=== PATIENT | female | born 1945 | race Caucasian/White ===

== ENCOUNTER 2019-10-30 16:39 | Outpatient (RCR) | payer OTHER, SELFPAY ==
[2019-10-04 16:08] LABS: INR 1.7; Prothrombin Time 19.3 Seconds (11.1-14.7)
[2019-10-13 11:29] LABS: INR 4.1; Prothrombin Time 39.1 Seconds (11.1-14.7)
[2019-10-18 13:49] LABS: INR 2.2; Prothrombin Time 24.3 Seconds (11.1-14.7)
[2019-10-30 17:04] LABS: INR 1.8; Prothrombin Time 20.5 Seconds (11.1-14.7)
== END 2020-01-02 23:59 | disposition home or self-care (01) ==
LOC: ANHLAB 16:39
PROVIDERS: PCP Family Medicine; Visit Provider Internal Medicine Cardiovascular Disease
DX: Z48.812 Encounter for surgical aftercare following surgery on the circulatory system (principal); I35.1 Nonrheumatic aortic (valve) insufficiency
CPT/HCPCS: 36415; 85610

== ENCOUNTER 2019-12-20 15:00 | Outpatient (RCR) | payer OTHER, SELFPAY ==
[2019-09-22 11:28] VITALS: BP 120/70; PULSE 85; RESP 16; O2SAT 93
[2019-09-22 11:30] VITALS: PULSE 85
--- NOTE | 2019-09-25 09:07 | PCCPR ---
Absent due to illness Kathy called states she is not feeling well at all. She has been having chest discomfort mostly when she takes a deep breath. Encouraged her to call her PCP or her Customer Service Correspondence Clerk to get an apt to be seen. She also mentioned she feels shakey however denies her heart feeling irregular. Asked she keep us informed.
--- NOTE | 2019-09-27 07:17 | PCCPR ---
Kathy called and left message stating that she was in the hospital at [place], did not state reason why, will be out this week.
--- NOTE | 2019-09-27 08:43 | PC.NURSE ---
Kathy called in from the ICU and states she was hospitalized for low potassium and fluid overload. They are going to send her home today with diuretics and potassium. She states she was having chest pain but the doctor told her it was most likely muscular after doing testing. Informed her that we would need a release for her to return from Cardiology before she could come back.
--- NOTE | 2019-10-09 10:55 | PCCPR ---
Absent Called off has out of town company.
--- NOTE | 2019-11-01 18:47 | PCCPR ---
Absent-called in stating she had hurt her back putting up decorations.
--- NOTE | 2019-11-06 10:26 | PCCPR ---
Absent today due to inclement weather.
--- NOTE | 2019-11-30 14:36 | PCCPR ---
Absent Zhou called states she is not feeling well and has a back pain.
== END 2019-12-20 23:59 | disposition home or self-care (01) ==
LOC: ANHCPREHAB 15:00
PROVIDERS: PCP Family Medicine; Visit Provider Nurse Practitioner Adult Health
DX: Z95.2 Presence of prosthetic heart valve (principal)
CPT/HCPCS: 93798

== ENCOUNTER 2020-03-12 13:58 | Outpatient (CLI) | payer OTHER, SELFPAY ==
--- NOTE | ~2020-03-12 | MM_ITS ---
EXAMINATION: MM screening juli BI w devon HISTORY: Screening mammogram TECHNIQUE: Craniocaudal and mediolateral oblique 3-D tomosynthesis images were obtained and synthetic 2-D images were generated. CAD analysis was submitted and interpreted. COMPARISON: 12/29/2018, 06/18/2017, 06/02/2016 bilateral digital screening mammogram examinations BREAST PARENCHYMAL COMPOSITION: There are scattered areas of fibroglandular density. FINDINGS: There is no evidence of suspicious mass, calcification, or architectural distortion to sugg est malignancy in either breast. There has been no suspicious interval change. IMPRESSION: 1. No mammographic evidence of malignancy. 2. Recommend routine screening mammography in one year. BI-RADS Category 1: Negative Reviewed, dictated and finalized at location A.
== END 2020-03-12 13:59 | disposition home or self-care (01) ==
LOC: ANHIMG 14:02
PROVIDERS: PCP Family Medicine; Visit Provider Family Medicine
DX: Z12.31 Encounter for screening mammogram for malignant neoplasm of breast (principal)
CPT/HCPCS: 77063; 77067

== ENCOUNTER 2020-04-01 12:59 | Outpatient (CLI) | payer OTHER, SELFPAY ==
--- NOTE | ~2020-04-01 | XR_ITS ---
EXAMINATION: XR hip LT min 2V DATE: 04/01/2020 13:33 INDICATION: Left hip bursitis. TECHNIQUE: 2 views of left hip were obtained. COMPARISON: Left hip radiographs 01/11/2020, CT abdomen and pelvis 07/19/2012 FINDINGS: Bone alignment is normal. No fracture. There is mild left hip osteoarthritis. Suture materi al overlies the abdomen and pelvis. IMPRESSION: 1. Mild left hip osteoarthritis. Reviewed, dictated and finalized at location A.
== END 2020-04-01 13:00 | disposition home or self-care (01) ==
LOC: ANHIMG 13:08
PROVIDERS: PCP Family Medicine; Visit Provider Chiropractor Rehabilitation
DX: M71.552 Other bursitis, not elsewhere classified, left hip (principal); M16.12 Unilateral primary osteoarthritis, left hip
CPT/HCPCS: 73502

== ENCOUNTER 2020-04-27 09:33 | Outpatient (CLI) | payer OTHER, SELFPAY ==
--- NOTE | ~2020-04-27 | MR_ITS ---
EXAMINATION: MR hip LT wo con DATE: 04/27/2020 10:48 INDICATION: Severe left hip pain. Trochanteric bursitis. TECHNIQUE: Magnetic resonance imaging (MRI) of the left hip was performed without intravenous contra st. Sequences included full-field axial PD-weighted FS FSE and T1-weighted FSE, coronal of the pelvis with PD-weighted FS FSE, small field of view of the left hip with axial PD-weighted FS FSE, sagitta l PD-weighted FS FSE and coronal PD weighted FS FSE. Additional radial T1-weighted FGR oriented ortho gonal to the acetabular rim were obtained for evaluation of the labrum. COMPARISON: Left hip radiographs dated 04/01/2020 FINDINGS: Bones/labrum/cartilage: Alignment is normal. No fracture, avascular necrosis or pathologic marrow replacing process. Degener ative tearing at the anterior and posterior superior glenoid labrum. Mild osteoarthritis at the right hip with posterior predominant nonuniform joint space narrowing. Severe lumbar spondylosis. Fluid: Trochanteric bursitis with fluid in the left trochanteric bursa measuring 5.0 cm craniocaudally and 3 .2 x 1.0 cm in maximal transaxial dimensions. Physiologic amount of fluid in the bilateral hip joints . Minimal fluid at the right trochanteric bursa. Soft tissues: No asymmetric muscular atrophy at the pelvis or proximal thighs. Moderate tendinopathy without discre te tear at the distal aspect of the anterior portion of the left least medius tendon with mild tendin opathy of the posterior portion of the tendon. Mild muscular edema along the myotendinous junction of the distal left gluteus medius which could be reactive or related to low-grade strain. Mild tendinop athy without discrete tear at the contralateral right gluteus medius tendon. Bilateral gluteus minimu s and ian tendons are normal. The iliopsoas and proximal hamstring tendons are normal. Separabili ty artifact along an infraumbilical midline surgical scar. The uterus is not identified and has likel y been surgically resected. Limited evaluation of visceral organs of the pelvis is unremarkable. No pathologically enlarged pelvic/inguinal lymphadenopathy. IMPRESSION: 1. Moderate tendinopathy without discrete tear of the left gluteus medius medius tendon and likely lo w-grade strain at the myotendinous junction. 2. Bilateral trochanteric bursitis, moderate severity in the left and minimal on the right. 3. Mild left hip osteoarthritis with degeneration at the anterior and posterior superior left acetabu lar labrum. Reviewed, dictated and finalized at location A. IMPRESSION: 1. Moderate tendinopathy without discrete tear of the left gluteus medius mediu s tendon and likely low-grade strain at the myotendinous junction. 2. Bilateral trochanteric bursitis, moderate severity in the left and minimal o n the right. 3. Mild left hip osteoarthritis with degeneration at the anterior and posterior superior left acetabular labrum.
== END 2020-04-27 09:34 | disposition home or self-care (01) ==
PROVIDERS: PCP Family Medicine; Visit Provider Orthopaedic Surgery
DX: M70.61 Trochanteric bursitis, right hip (principal); M70.62 Trochanteric bursitis, left hip
CPT/HCPCS: 73721

== ENCOUNTER → 2020-07-23 13:30 | Outpatient (CLI) | payer OTHER, SELFPAY ==
--- NOTE | ~2020-07-23 | DEXA_ITS ---
Bone Density Report Name: Kathy Wright Age: 75 Sex: Female Ethnicity: White Date of : 1945 Indication: osteopenia; parental hip fracture; height loss; hysterectomy; postmenopausal Referring Provider: Jenna Stuart Study: Bone densitometry was performed. Exam Date: July 23, 2020 Accession number: [id number] Bone Density: Region BMD T-score Z-score Classification AP Spine (L1-L4) 1.044 0.0 2.5 Normal Femoral Neck (Left) 0.612 -2.1 0.0 Osteopenia Total Hip (Left) 0.747 -1.6 0.3 Osteopenia Femoral Neck (Right) 0.596 -2.3 -0.1 Osteopenia Total Hip (Right) 0.809 -1.1 0.8 Osteopenia Total Hip Mean 0.778 -1.4 0.6 Osteopenia World Health Organization criteria for BMD impression classify patients as: Normal (T-score at or above -1.0), Osteopenia (T-score between -1.0 and -2.5), or Osteoporosis (T-score at or below -2.5). 10-year Fracture Risk(1): Major Osteoporotic Fracture 28% Hip Fracture 18% Reported Risk Factors: [place] (), Neck BMD=0.596, BMI=28.5, parental fracture (1) FRAX(R) Version 3.08. Fracture probability calculated for an untreated patient. Fracture probability may be lower if the patient has received treatment. Previous Exams: Region Exam Age BMD T-score BMD Change BMD Change Date g/cm2 vs Baseline vs Previous AP Spine(L1-L4) 07/23/2020 75 1.044 0.0 0.032* 0.024* 11/30/2014 69 1.020 -0.2 0.007 -0.012 07/31/2009 64 1.032 -0.1 0.020 0.020 03/30/2007 62 1.012 -0.3 Total Hip(Left) 07/23/2020 75 0.747 -1.6 -0.052* -0.031* 11/30/2014 69 0.778 -1.3 -0.020 -0.032* 07/31/2009 64 0.810 -1.1 0.011 0.011 03/30/2007 62 0.798 -1.2 Total Hip(Right) 07/23/2020 75 0.809 -1.1 -0.001 0.012 11/30/2014 69 0.796 -1.2 -0.013 -0.105* 07/31/2009 64 0.901 -0.3 0.092* 0.092* 03/30/2007 62 0.809 -1.1 *Denotes significance at 95% confidence level, LSC for AP Spine = 0.022 g/cm2, LSC for Total Hip = 0.027 g/cm2 Clinical Information Provided by Patient: Parent has had a hip fracture Has used the following medications: Vitamin D, Calcium Has the following medical conditions: Hysterectomy Patient maximum height was 65 Menopause Age: 39 No regular weight bearing exercise Drinks caffeinated beverages Onset of menses at age 10 Number of children 3
== END ==
PROVIDERS: PCP Family Medicine; Visit Provider Physician Assistant
DX: N95.9 Unspecified menopausal and perimenopausal disorder (principal); M85.852 Other specified disorders of bone density and structure, left thigh; M85.851 Other specified disorders of bone density and structure, right thigh
CPT/HCPCS: 77080

== ENCOUNTER 2020-07-30 13:46 | Outpatient (CLI) | payer OTHER, SELFPAY ==
--- NOTE | ~2020-07-30 | MMUS_ITS ---
EXAMINATION: MM diagnostic juli LT w devon, US breast LT complete HISTORY: Left lateral breast soreness with pain. Breast firmness. TECHNIQUE: Additional 3-D tomosynthesis images of the left breast were performed and synthetic 2-D im ages were generated. CAD analysis was submitted and interpreted. High resolution left breast ultrasou nd was performed. COMPARISON: Comparison to multiple prior studies sequentially, with oldest reviewed study dated 06/02. BREAST PARENCHYMAL COMPOSITION: Breast composed of scattered areas of fibroglandular density. FINDINGS: MAMMOGRAPHIC FINDINGS: There are no suspicious masses, calcifications or architectural distortion in the left breast to sugg est malignancy. ULTRASOUND: Left breast ultrasound: At 1:00 in the area of palpable concern there is an 8 x 8 x 7 mm complicated cyst with internal septa tions. IMPRESSION: 1. No evidence for malignancy in the left breast. Benign findings. 2. Routine yearly screening mammogram and regular clinical breast examination are recommended. BI-RADS Category 2: Benign finding(s). Reviewed, dictated and finalized at location A. IMPRESSION: 1. No evidence for malignancy in the left breast. Benign findings. 2. Routine yearly screening mammogram and regular clinical breast examination a re recommended. BI-RADS Category 2: Benign finding(s).
== END 2020-07-30 13:47 | disposition home or self-care (01) ==
PROVIDERS: PCP Family Medicine; Visit Provider Physician Assistant
DX: N64.4 Mastodynia (principal); N63.20 Unspecified lump in the left breast, unspecified quadrant; R92.8 Other abnormal and inconclusive findings on diagnostic imaging of breast
CPT/HCPCS: 76641; 77061; 77065; G0279

== ENCOUNTER 2020-08-08 10:52 | Outpatient (CLI) | payer OTHER, SELFPAY ==
--- NOTE | ~2020-08-08 | MR_ITS ---
EXAMINATION: MR lumbar spine wo con DATE: 08/08/2020 12:00 INDICATION: Spinal stenosis. Lumbar neurogenic claudication. TECHNIQUE: Magnetic resonance imaging (MRI) of the lumbar spine was performed without intravenous con trast. Sequences included sagittal T2-weighted FSE, sagittal T2-weighted FS FSE, sagittal T1-weighted FSE, and axial T2-weighted FSE. COMPARISON: 06/06/2019 FINDINGS: 10 degrees lumbar dextroscoliosis. 2 mm retrolisthesis L2 on L3 and L3 on L4. 3 mm anterolisthesis L5 on S1. Vertebral body heights are normal. T1 and T2 hyperintense hemangioma at L1. Normal marrow sig nal. Severe right-sided disc height loss at L4-L5 and severe left-sided disc height loss at L3-L4. Mo derate left-sided disc height loss at L2-L3. Mild disc height loss at L1-L2 and L5-S1. The conus medu llaris terminates at L2. There is normal signal in the caudal spinal cord. No significant change in a 9 mm T2 hyperintense cyst at the lower pole of the left kidney Paravertebral soft tissues are unrema rkable. The following disc levels are specifically discussed: T12-L1: The disc does not extend beyond the endplate margin. There is mild bilateral facet joint oste oarthritis. There is no neural foraminal stenosis. There is no central canal stenosis. L1-L2: Disc is bulging. There is hypertrophy of the ligamentum flavum. There is mild to moderate primitivo ateral facet joint osteoarthritis. There is mild bilateral neural foraminal stenosis. There is mild c entral canal stenosis. L2-L3: Disc is bulging with annular fissure. There is hypertrophy of the ligamentum flavum. There is moderate left and severe right facet joint osteoarthritis. There is mild to moderate right and modera te left neural foraminal stenosis. There is mild central canal stenosis with narrowing of the lateral recesses, left greater than right. L3-L4: Disc is bulging with annular fissure. There is mild hypertrophy of the ligamentum flavum. Ther e is moderate left and severe right facet joint osteoarthritis. There is moderate bilateral neural fo raminal stenosis. There is mild central canal stenosis with narrowing of the left and right lateral r ecesses. L4-L5: Disc is bulging. There is mild hypertrophy of the ligamentum flavum. There is moderate left an d severe right facet joint osteoarthritis. There is moderate left and moderate to severe right neural foraminal stenosis. There is mild central canal stenosis with narrowing of the lateral recesses, rig ht greater than left. L5-S1: Disc is bulging. There is severe bilateral, right greater than left facet joint osteoarthritis . There is mild bilateral neural foraminal stenosis. There is mild central canal stenosis with narrow ing of the left and right lateral recesses. IMPRESSION: 1. No significant interval change in mild lumbar dextroscoliosis with severe spondylosis. Reviewed, dictated and finalized at location A. IMPRESSION: 1. No significant interval change in mild lumbar dextroscoliosis with severe sp ondylosis.
== END 2020-08-08 10:53 | disposition home or self-care (01) ==
PROVIDERS: PCP Family Medicine; Visit Provider Orthopaedic Surgery
DX: M48.062 Spinal stenosis, lumbar region with neurogenic claudication (principal); M70.61 Trochanteric bursitis, right hip; M70.62 Trochanteric bursitis, left hip; M47.816 Spondylosis without myelopathy or radiculopathy, lumbar region
CPT/HCPCS: 72148

== ENCOUNTER 2021-04-14 15:35 | Outpatient (CLI) | payer OTHER, SELFPAY ==
--- NOTE | ~2021-04-14 | XR_ITS ---
[[id number] ] INDICATION: Bilateral rib pain after fall. Dyspnea with exertion. TECHNIQUE: Frontal projection of the upper ribs, frontal projection of the lower ribs, oblique projec tion of all the ribs, frontal inspiratory chest x-ray for interpretation. FINDINGS: There are no displaced rib fractures identified. There are no soft tissue abnormality see n. There is focal infiltrate of the right mid lung zone. No significant pleural effusion or pneumotho rax. Status post median sternotomy. There is a prosthetic heart valve. IMPRESSION: 1:No displaced rib fractures. 2:Focal infiltrate right midlung zone which may be pneumonia or parenchymal nodule. Recommend follow- up x-ray in 3-4 weeks to assess for resolution. Reviewed, dictated and finalized at location A. IMPRESSION: 1:No displaced rib fractures. 2:Focal infiltrate right midlung zone which may be pneumonia or parenchymal nod ule. Recommend follow-up x-ray in 3-4 weeks to assess for resolution.
== END 2021-04-14 15:36 | disposition home or self-care (01) ==
LOC: ANHIMG 15:37
PROVIDERS: PCP Family Medicine; Visit Provider Internal Medicine Cardiovascular Disease
DX: R06.00 Dyspnea, unspecified (principal); I50.32 Chronic diastolic (congestive) heart failure
CPT/HCPCS: 71111

== ENCOUNTER 2021-05-08 13:07 | Outpatient (CLI) | payer OTHER, SELFPAY ==
--- NOTE | ~2021-05-08 | XR_ITS ---
EXAMINATION: XR chest 2V 05/08/2021 13:24 INDICATION: Infiltrates. Chest pain. PROCEDURE: 2 view chest COMPARISON: 06/07/2019 FINDINGS: The lungs are clear. There are median sternotomy wires. There is a prosthetic heart valve. The cardiomediastinal silhouette is within normal limits. There are no pleural effusions. There is no pneumothorax suspected. IMPRESSION: 1: NO ACUTE CARDIOPULMONARY DISEASE. Reviewed, dictated and finalized at location A.
== END 2021-05-08 13:08 | disposition home or self-care (01) ==
LOC: ANHIMG 13:12
PROVIDERS: PCP Family Medicine; Visit Provider Internal Medicine Cardiovascular Disease
DX: R93.89 Abnormal findings on diagnostic imaging of other specified body structures (principal)
CPT/HCPCS: 71046

== ENCOUNTER 2021-06-27 10:05 | Outpatient (CLI) | payer OTHER, SELFPAY ==
--- NOTE | 2021-06-27 16:07 | WPDPFTINT ---
PFT Procedure Performed PFT Procedure Performed Plethysmography (Lung Vol) Diffusing Cap (DLCO) Flow Vol Loop Spirometry w/o Bronchodil PFT Interpretation This is a pulmonary function test with spirometry, plethysmography and diffusing capacity. The test was performed and results interpreted in accordance with the 2019 and 2005 ATS/ERS Task Force guidelines respectively using the Global Lung Function Initiative-2012 reference equations. Patient demonstrated good effort and cooperation. Reproducibility criteria were met. The quality of the spirometry maneuver was Grade B. Findings: Spirometry: The contour the inspiratory and expiratory flow tracing are normal. The FVC is 3.03 L, 114% predicted. The FEV1 is 2.22 L, 110% predicted. The FEV1: FVC ratio 73%. Plethysmography: The total lung capacity is 5.34 L, 105% predicted. The functional residual capacity is 2.06 L, 70% predicted. The residual volume is 2.02 L, 86% predicted. Diffusing capacity: The absolute diffusion capacity is 13.2, 67% predicted. The diffusing capacity corrected for alveolar volume is 3.37, 81% predicted. Impression: The spirometry is normal without evidence of an obstructive abnormality. The lung volumes are normal. The diffusing capacity is normal. There are no prior studies for comparison
== END 2021-06-27 10:06 | disposition home or self-care (01) ==
LOC: ANHPFT 10:07
PROVIDERS: PCP Family Medicine; Visit Provider Nurse Practitioner Adult Health
DX: R06.00 Dyspnea, unspecified (principal)
CPT/HCPCS: 94375; 94726; 94729

== ENCOUNTER → 2022-01-19 10:22 | Outpatient (CLI) | payer OTHER, SELFPAY ==
--- NOTE | ~2022-01-19 | CT_ITS ---
EXAMINATION: CT chest high resolution [facility] EXAM DATE: 01/19/2022 10:39 INDICATION: R06.02 - Shortness of breath. TECHNIQUE: Spiral CT of the chest without contrast. HRCT. Axial, coronal and sagittal images of the chest were reviewed. Coronal maximum intensity pixel images of chest reviewed. The dose-length prod uct (DLP) for this examination was 246.17 mGy-cm. The exposure was tailored according to patient siz e (auto mA exposure control), and iterative reconstruction (ASIR) was used as additional dose reducti on technique. Comparison is made to prior examination from 09/25/2019. FINDINGS: The lungs are clear. Mild bronchiectasis. No evidence of interstitial lung disease. There are no pleural or pericardial effusions. Tracheobronchial tree is patent. There is no mediastinal , hilar or axillary lymphadenopathy. There is no pneumothorax. Heart normal in size. There is m ild coronary arterial calcification, arterial sclerosis. Aortic valve replacement. Sternotomy wires. Upper abdomen is unremarkable. There is thoracic spondylosis without osteoblastic or osteolytic le sions identified. IMPRESSION: Mild bronchiectasis. Otherwise unremarkable exam. Reviewed, dictated and finalized at location B. 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
== END ==
PROVIDERS: PCP Family Medicine; Visit Provider Nurse Practitioner Gerontology
DX: E03.9 Hypothyroidism, unspecified (principal); I11.0 Hypertensive heart disease with heart failure; I50.32 Chronic diastolic (congestive) heart failure; R06.02 Shortness of breath; R91.1 Solitary pulmonary nodule; I12.9 Hypertensive chronic kidney disease with stage 1 through stage 4 chronic kidney disease, or unspecified chronic kidney disease; N18.31 Chronic kidney disease, stage 3a
CPT/HCPCS: 71250

== ENCOUNTER 2022-04-13 10:59 | Outpatient (CLI) | payer OTHER, SELFPAY ==
--- NOTE | ~2022-04-13 | CT_ITS ---
EXAMINATION:CT diagnostic chest wo con DATE: 04/13/2022 11:24 INDICATION: Dyspnea on exertion. TECHNIQUE: Computed tomography (CT) of the chest was performed without intravenous contrast. Automate d exposure control and iterative reconstruction technique were employed. The dose-length product (DLP ) was 129.03 mGy-cm. COMPARISON: Chest CT 01/19/2022 FINDINGS: There is mild scarring at the lung apices. There is mild bronchiectasis in the inferior roz gs. There is chronic peripheral septal thickening in the paramediastinal lower lobes. No honeycombing . There is a chronic cluster of tree-in-bud opacities in right middle lobe. No pleural effusion. The heart size is normal. There are changes of aortic valve replacement. No pericardial effusion. There i s mild thoracic spondylosis. IMPRESSION: 1. Mild chronic lung disease. Reviewed, dictated and finalized at location A.
== END 2022-04-13 11:00 | disposition home or self-care (01) ==
PROVIDERS: PCP Family Medicine; Visit Provider Nurse Practitioner Adult Health
DX: R06.02 Shortness of breath (principal); J98.4 Other disorders of lung
CPT/HCPCS: 71250

== ENCOUNTER 2022-07-10 10:16 | Outpatient (CLI) | payer OTHER, SELFPAY ==
[2022-07-13 20:11] LABS: NIL 0.01 IU/mL; Quantiferon TB Plus, 1T NEGATIVE (NEGATIVE); TB1-NIL 0.01 IU/mL; TB2-NIL 0.03 IU/mL
[2022-07-13 20:14] LABS: Immunoglobulin E 6 kU/L (<=114)
--- NOTE | 2022-07-15 12:22 | WPDSIXMINUTE ---
Six Minute Walk Procedure Procedure Performed Pulmonary Stress Test (6 min walk) Six Minute Walk Six Minute Walk: This is a 6 minute walk test. The test was performed and interpreted in accordance with the 2014 ERS/ATS task force guidelines. Findings: The patient's resting room air oxygen saturation measured by pulse oximetry was 99% and heart rate was 68 bpm. Patient ambulated for 244 meters and oxygen saturation remained 97 to 98%. Heart rate at the end of the study was 85 bpm. The patient did not qualify for supplemental oxygen at rest or with ambulation. There are no prior studies for comparison.
--- NOTE | 2022-07-15 12:23 | WPDPFTINT ---
PFT Procedure Performed PFT Procedure Performed Spirometry with Pre/Post Bronchodilator Plethysmography (Lung Vol) Diffusing Cap (DLCO) Flow Vol Loop PFT Interpretation This is a pulmonary function test with pre and post-bronchodilator spirometry, plethysmography and diffusing capacity. The test was performed and results interpreted in accordance with the 2019 and 2005 ATS/ERS Task Force guidelines respectively using the Global Lung Function Initiative-2012 reference equations. Patient demonstrated good effort and cooperation. Reproducibility criteria were met. The quality of the pre bronchodilator spirometry maneuver was Grade A and post bronchodilator spirometry maneuver was Grade B. Findings: Spirometry: The contour the inspiratory and expiratory flow tracing are normal. The pre bronchodilator FVC is 3.00 L, 115% predicted. The pre bronchodilator FEV1 is 2.39 L, 120% predicted. The pre bronchodilator FEV1: FVC ratio is 80%. The post bronchodilator FVC is 2.90 L, representing a 3% decrease. The post bronchodilator FEV1 is 2.38 L, representing no change. The post bronchodilator FEV1: FVC ratio was 82%. Plethysmography: The total lung capacity is 4.49 L, 88% predicted. The functional residual capacity is 2.12 L, 72% predicted. The residual volume is 1.33 L, 56% predicted. Diffusion capacity: Diffusing capacity unadjusted for hemoglobin and carboxyhemoglobin is 11.8, 60% predicted. The diffusing capacity adjusted for alveolar volume is 3.62, 87% predicted. In comparison to previous pulmonary function test on 06/27/2021 in which no bronchodilator was given the pre bronchodilator FVC is unchanged from 3.03 L to 3.00 L. The pre bronchodilator FEV1 is unchanged from 2.22 L to 2.39 L. The total lung capacity is decreased from 5.34 L to 4.49 L. The functional residual capacity is unchanged from 2.06 L to 2.12 L. The residual volume is decreased from 2.02 L to 1.33 L. The diffusing capacity unadjusted for hemoglobin and carboxyhemoglobin is unchanged from 13.2 to 11.8. The diffusing capacity adjusted for alveolar volume is unchanged from 3.37 to 3.62. Impression: The spirometry is normal without evidence of an obstructive abnormality. There is no significant improvement after inhaling a single dose of albuterol. The total lung capacity is normal with the decreased residual volume. This is a abnormal but nonspecific lung volume pattern. The diffusing capacity unadjusted for hemoglobin and carboxyhemoglobin is moderately decreased and normalizes when adjusted for alveolar volume. In comparison to previous pulmonary function testing on 06/27/2021 there has been a greater than anticipated time dependent decrease in total lung capacity and residual volume with no change in the FVC, FEV1, functional residual capacity and diffusing capacity. Clinical correlation is recommended.
== END 2022-07-10 10:17 | disposition home or self-care (01) ==
PROVIDERS: PCP Family Medicine; Visit Provider Internal Medicine Pulmonary Disease
DX: R06.00 Dyspnea, unspecified (principal); J40 Bronchitis, not specified as acute or chronic; Z72.0 Tobacco use
CPT/HCPCS: 36415; 82785; 86480; 94060; 94618; 94726; 94729

== ENCOUNTER 2022-10-05 10:04 | Emergency (ER) | payer OTHER, SELFPAY ==
--- NOTE | 2022-10-05 10:09 | ED.URI ---
HPI - URI/Sore Throat General Chief Complaint: Upper Respiratory Infection Stated Complaint: cold symptoms Time Seen by Provider: 10/05/22 10:08 Source: patient Mode of arrival: ambulatory Limitations: no limitations History of Present Illness HPI Narrative: Kathy is a 77-year-old female patient presenting to clinic today with complaints of cold symptoms x2 and half days. She reports she has headache, cough, sinus congestion, sinus pressure, runny nose, and sore throat. She feels as though it is going down into her chest. She denies any known fever but has had some chills. MD elicited complaint: sore throat and nasal congestion Related Data Home Medications Medication Instructions Recorded Confirmed Adult One Daily Multivitamin 1 caplet PO DAILY 09/22/19 10/05/22 aspirin 81 mg tablet,delayed 81 mg PO DAILY 09/22/19 10/05/22 release (Adult Low Dose Aspirin) calcium carbonate 600 mg-vitamin 1 cap PO DAILY 09/22/19 10/05/22 D3 5 mcg (200 unit) capsule (Calcium 600 + D(3)) acetaminophen 500 mg capsule 1,000 mg PO Q6H PRN Pain 09/25/19 10/05/22 coenzyme Q10 10 mg capsule 10 mg PO ONCE 09/25/19 10/05/22 metoprolol tartrate 50 mg tablet 100 mg PO Q12H 09/25/19 10/05/22 (Lopressor) omega-3 fatty acids 1,000 mg 1,000 mg PO DAILY 07/02/20 10/05/22 capsule (Fish Oil Concentrate) vitamins A,C,N-vtnu-oebbxe 2,148 2 tablet PO BID 05/15/21 10/05/22 mcg-113 mg-45 mg-17.4 mg tablet (PreserVision AREDS) zinc 50 mg tablet 50 mg PO DAILY 05/15/21 10/05/22 vitamin B complex (B 1 tablet DAILY 10/05/22 10/05/22 Complex-Vitamin B12 tablet) Allergies Allergy/AdvReac Type Severity Reaction Status Date / Time No Known Allergies Allergy Verified 10/05/22 10:15 Review of Systems Review of Systems: Pertinent positives per HPI. Patient denies any fever, rash, headache, visual changes, dizziness, shortness of breath, chest pain, palpitations, nausea, vomiting, diarrhea, constipation, abdominal pain, or any urinary issues. [facility] Past Medical History Medical History Abnormal colonoscopy 2020- tubular adenoma- repeat in 5 years Acute otitis media Acute sinusitis Anorexia Aortic valve regurgitation Status post aortic valve repair for aortic regurgitation August 16, 2019 at [facility]. Patient believe she may have had atrial fibrillation postoperatively for short period of time. States she is taking Coumadin through October ?to prevent clots.? Arthralgia Atrophic vaginitis Back muscle spasm Benign colon polyp Bilateral sacroiliitis Breast mass, left Breast pain, left Chest pain Chronic anticoagulation Chronic diastolic (congestive) heart failure CKD (chronic kidney disease) stage 3, GFR 30-59 ml/min Depression with anxiety Diarrhea Elevated troponin I level Fatigue GERD (gastroesophageal reflux disease) Hyperlipidemia Hypertension Hypertensive heart disease with chronic diastolic congestive heart failure Hypokalemia Hypothyroidism Hypothyroidism (acquired) Major depressive disorder, recurrent, moderate Mild valvular heart disease Mixed hyperlipidemia OAB (overactive bladder) Osteoarthritis Post-menopausal Pulmonary nodule Sacrococcygeal disorders, not elsewhere classified Screening for breast cancer SOB (shortness of breath) Spinal stenosis of lumbar region Tinnitus Trochanteric bursitis of both hips Vaginal irritation Vaginal itching Surgical History Surgical History H/O cardiac catheterization July 18, [address] Jimenes showed normal coronary arteries, normal left ventricular systolic function and ejection fraction, and severe aortic regurgitation. H/O: hysterectomy For endometriosis. History of colostomy Hx of aortic valve replacement August 16, [address] Mojica at [facility]. Hx of colonoscopy with polypectomy S/P cataract surgery S/P excision of lipom
[2022-10-05 10:21] VITALS: BP 161/79; PULSE 96; RESP 24; TEMP 37.2; O2SAT 97
== END 2022-10-05 10:16 | disposition home or self-care (01) ==
PROVIDERS: Emergency Provider Nurse Practitioner Family; PCP Family Medicine
DX: U07.1 COVID-19 (principal); K21.9 Gastro-esophageal reflux disease without esophagitis; E78.2 Mixed hyperlipidemia; I13.0 Hypertensive heart and chronic kidney disease with heart failure and stage 1 through stage 4 chronic kidney disease, or unspecified chronic kidney disease; N18.30 Chronic kidney disease, stage 3 unspecified; I50.32 Chronic diastolic (congestive) heart failure; E03.9 Hypothyroidism, unspecified; M19.90 Unspecified osteoarthritis, unspecified site; Z79.82 Long term (current) use of aspirin
CPT/HCPCS: 87426; 87804; 99213; C9803; G0463

== ENCOUNTER 2022-10-13 14:19 | Outpatient (CLI) | payer OTHER, SELFPAY ==
--- NOTE | ~2022-10-13 | XR_ITS ---
EXAMINATION: XR chest 2V Exam Date/Time: 10/13/2022 14:30 SAGGER PREPARER HISTORY: U07.1 - COVID-19, SOB, COUGH, FEVER Comparison: 05/08/2021. RESULT: Lines, tubes, and devices: Intact sternotomy wires. Cardiac valve replacement. Lungs and pleura: Clear. Cardiomediastinal silhouette: Stable. Other: No acute osseous or upper abdominal finding. IMPRESSION: No acute cardiopulmonary process. Reviewed, dictated and finalized at location K. ER PREPARER
== END 2022-10-13 14:20 | disposition home or self-care (01) ==
PROVIDERS: PCP Family Medicine; Visit Provider Nurse Practitioner Gerontology
DX: U07.1 COVID-19 (principal)
CPT/HCPCS: 71046

== ENCOUNTER → 2023-05-28 12:14 | Outpatient (CLI) | payer MEDICARE, SELFPAY ==
--- NOTE | ~2023-05-28 | MR_ITS ---
EXAMINATION: MR lumbar spine wo con DATE: 05/28/2023 13:37 INDICATION: Other spondylosis with myelopathy. Low back pain. TECHNIQUE: Magnetic resonance imaging (MRI) of the lumbar spine was performed without intravenous con trast. Sequences included sagittal T2-weighted FSE, sagittal T2-weighted FS FSE, sagittal T1-weighted FSE, and axial T2-weighted FSE. COMPARISON: Lumbar spine MRI 08/08/2020 FINDINGS: There is 9 degrees dextrocurvature of lumbar spine. There is 3 mm retrolisthesis of L3 on L 4 and 4 mm anterolisthesis of L5 on S1. Vertebral body heights are normal. There is mildly decreased disc height at L1-L2 and L2-L3 and severely decreased disc height at L3-L4 and L4-L5. The distal spin al cord signal intensity is normal. The conus medullaris is at L1-L2. The following disc levels are s pecifically discussed: L1-L2: The disc is bulging and has an annular fissure. There is severe bilateral facet joint osteoart hritis. There is mild bilateral neural foraminal stenosis. There is mild central canal stenosis. L2-L3: The disc is bulging. There is severe bilateral facet joint osteoarthritis. There is mild right and moderate left neural foraminal stenosis. There is mild central canal stenosis. L3-L4: The disc is bulging and has an annular fissure. There is severe bilateral facet joint osteoart hritis. There is moderate bilateral neural foraminal stenosis. There is mild central canal stenosis. L4-L5: The disc is bulging and has an annular fissure. There is severe right and moderate left facet joint osteoarthritis. There is moderate bilateral neural foraminal stenosis. There is mild central ca nal stenosis. There is moderate stenosis of right lateral recess. L5-S1: The disc is bulging. There is severe bilateral facet joint osteoarthritis. There is mild bilat eral neural foraminal stenosis. There is no central canal stenosis. IMPRESSION: 1. Severe lumbar spondylosis, stable from 08/08/2020. Reviewed, dictated and finalized at location A.
--- NOTE | ~2023-05-28 | MR_ITS ---
MRI of the cervical spine Clinical History: Spondylosis Technique: Axial T2-weighted and gradient images, and sagittal T1-weighted, T2-weighted, and STIR adalid ges were acquired. Findings: There is no fracture or subluxation of cervical spine. Vertebral bodies maintain normal hei ght and alignment. No bone marrow signal abnormality seen. At C2-C3, there is minimal disc bulge. No spinal canal stenosis, cord compression, or neural foramina l narrowing. At C3-C4, there is small disc osteophyte complex with minimal flattening the ventral cord. There is p robable minimal bilateral neural foraminal narrowing. At C4-C5, disc osteophyte complex results in mild to moderate canal stenosis and mild ventral cord co mpression. There is bilateral neural foraminal narrowing. At C5-C6, disc osteophyte complex results in mild to moderate canal stenosis and mild ventral cord co mpression. There is probable bilateral neural foraminal narrowing, right worse than left. At C6-C7, there is disc osteophyte complex with mild canal stenosis, no trenton cord compression. There is probable bilateral neural foraminal narrowing. No abnormal signal seen in the spinal cord. Paravertebral soft tissues are unremarkable. Impression: Moderate to advanced degenerative spondylosis, as above. There is mild to moderate canal stenosis and mild ventral cord compression at C4-C5 and C5-C6. There is mild ventral cord flattening at C3-C4. Th ere is multilevel neural foraminal narrowing. Reviewed, dictated and finalized at [facility]. Impression: Moderate to advanced degenerative spondylosis, as above. There is mild to moder ate canal stenosis and mild ventral cord compression at C4-C5 and C5-C6. There is mild ventral cord flattening at C3-C4. There is multilevel neural foraminal narrowing.
== END ==
PROVIDERS: PCP Family Medicine; Visit Provider Family Medicine
DX: M47.896 Other spondylosis, lumbar region (principal); M47.892 Other spondylosis, cervical region
CPT/HCPCS: 72141; 72148

== ENCOUNTER 2023-08-10 14:38 | Outpatient (CLI) | payer MEDICARE, SELFPAY ==
--- NOTE | ~2023-08-10 | MM_ITS ---
EXAMINATION: MM screening juli BI w devon HISTORY: Screening TECHNIQUE: Craniocaudal and mediolateral oblique 3-D tomosynthesis images were obtained and synthetic 2-D images were generated. CAD analysis was submitted and interpreted. COMPARISON: Comparison to multiple prior studies sequentially, with oldest reviewed study dated 12/07. BREAST PARENCHYMAL COMPOSITION: Breast composed of scattered areas of fibroglandular density FINDINGS: There is no evidence of suspicious mass, calcification, or architectural distortion to sugg est malignancy in either breast. There has been no suspicious interval change. IMPRESSION: 1. No mammographic evidence of malignancy. 2. Recommend routine screening mammography in one year. BI-RADS Category 1: Negative Reviewed, dictated and finalized at location A.
== END 2023-08-10 14:39 | disposition home or self-care (01) ==
PROVIDERS: PCP Family Medicine; Visit Provider Physician Assistant
DX: Z12.31 Encounter for screening mammogram for malignant neoplasm of breast (principal)
CPT/HCPCS: 77063; 77067

== ENCOUNTER 2023-12-08 15:47 | Outpatient (CLI) | payer MEDICARE, SELFPAY ==
--- NOTE | ~2023-12-08 | XR_ITS ---
XR shoulder LT min 2V DATE: 12/08/2023 16:09 INDICATION: Left shoulder pain and tingling after lifting 20 pounds TECHNIQUE: 4 views COMPARISON: None FINDINGS: Status post sternotomy. There is osteopenia. There is mild degenerative change at the acromioclavicular joint. No fracture or dislocation, periosteal reaction or bone destruction or abnormal soft tissue calcifica tion. There is multi-level degenerative disc disease and apophyseal and uncovertebral joint degenerative ch tej of the cervical spine. IMPRESSION: Osteopenia Mild degenerative change at acromioclavicular joint Cervical spondylosis Reviewed, dictated and finalized at location B. EOGRAPHER
== END 2023-12-08 15:48 | disposition home or self-care (01) ==
LOC: ANHIMG 15:54
PROVIDERS: PCP Family Medicine; Visit Provider Physician Assistant Surgical
DX: M85.812 Other specified disorders of bone density and structure, left shoulder (principal); M19.012 Primary osteoarthritis, left shoulder; M47.892 Other spondylosis, cervical region
CPT/HCPCS: 73030

== ENCOUNTER 2024-02-03 15:04 | Outpatient (CLI) | payer MEDICARE, SELFPAY ==
--- NOTE | ~2024-02-03 | DEXA_ITS ---
Bone Density Report Name: RAJ MERAZ Age: 78 Sex: Female Ethnicity: White Date of : 1945 Indication: postmenopausal; screening for osteoporosis; parental hip fracture; history of glucocorticoids; hysterectomy; Referring Provider: RADHA LECHUGA Study: Bone densitometry was performed. Exam Date: February 03, 2024 Accession number: [id number] Bone Density: Region BMD T-score Z-score Classification AP Spine(L1-L4) 0.981 -0.6 2.1 Normal Femoral Neck (Left) 0.702 -1.3 1.0 Osteopenia Total Hip (Left) 0.846 -0.8 1.3 Normal Femoral Neck (Right) 0.697 -1.4 0.9 Osteopenia Total Hip (Right) 0.908 -0.3 1.8 Normal Total Hip Mean 0.877 -0.6 1.6 Normal World Health Organization criteria for BMD impression classify patients as: Normal (T-score at or above -1.0), Osteopenia (T-score between -1.0 and -2.5), or Osteoporosis (T-score at or below -2.5). 10-year Fracture Risk(1): Major Osteoporotic Fracture 32% Hip Fracture 19% Reported Risk Factors: [place] (), Neck BMD=0.702, BMI=29.7, parental fracture, glucocorticoids (1) FRAX(R) Version 3.08. Fracture probability calculated for an untreated patient. Fracture probability may be lower if the patient has received treatment. Clinical Information Provided by Patient: Parent has had a hip fracture Has taken Glucocorticoids Has used the following medications: Vitamin D, Calcium Has the following medical conditions: Hysterectomy, COMPLETE @39 Patient maximum height was 64 No regular weight bearing exercise Does not regularly consume dairy products Onset of menses at age 11 Number of children 3 Impression: The patient has low bone mass, based on the Right Femoral Neck T-score. The patient has an estimated ten-year risk of hip fracture of 19% and an estimated ten-year risk of major fracture of 32%, based on the WHO FRAX algorithm. The patient has risk factors, including: parental hip fracture, history of glucocorticoid therapy. Discussion: BONE DENSITY IS LOW AT ONE OR MORE SKELETAL SITES. THE PATIENT'S BMD AND CLINICAL RISK FACTORS CONTRIBUTE TO THIS PATIENT'S HIGH RISK OF FRACTURE. This patient's lowest T-score is low at one or more skeletal sites. It meets the World Health Organization's (WHO) criteria for ?low bone mass? (T-score between -1.0 and -2.5). The patient's 10-year risk of hip fracture and 10 year risk of a major osteoporotic fracture as calculated by FRAX exceeds the threshold where pharmacological therapy is recommended by the National Osteoporosis Foundation (NOF). However, all treatment decisions require clinical judgment and consideration of individual patient factors, including patient preferences, comorbidities, previous drug use, risk factors not captured in the FRAX model (e.g., frailty, falls, vitamin D defi
== END 2024-02-03 15:05 | disposition home or self-care (01) ==
PROVIDERS: PCP Family Medicine; Visit Provider Physician Assistant
DX: Z78.0 Asymptomatic menopausal state (principal); M85.852 Other specified disorders of bone density and structure, left thigh; M85.851 Other specified disorders of bone density and structure, right thigh
CPT/HCPCS: 77080

== ENCOUNTER 2024-07-27 15:29 | Emergency (ER) | payer OTHER, SELFPAY ==
[2024-07-27 15:40] VITALS: BP 171/74; PULSE 72; RESP 20; TEMP 36.5; O2SAT 97
[2024-07-27 15:59] LABS: EDINFLUASCREEN Negative; EDINFLUBSCREEN Negative
[2024-07-27 15:59] LABS: EDSTREPNEGPOS1 Negative
--- NOTE | 2024-07-27 16:04 | ED.URI ---
HPI - URI/Sore Throat General Chief Complaint: Upper Respiratory Infection Stated Complaint: sore throat / headache Time Seen by Provider: 07/27/24 16:04 Source: patient and RN notes reviewed Mode of arrival: ambulatory Limitations: no limitations History of Present Illness HPI Narrative: 79-year-old female presented for complaint of headache, body aches, sinus pressure/congestion, cough, fever/chills. Onset 2 days. Also reports dry heaves. Denies sob, wheezing, vomiting or diarrhea. Took Sudafed and Tylenol Sinus. MD elicited complaint: cough Related Data Home Medications Medication Instructions Recorded Confirmed Adult One Daily Multivitamin 1 caplet PO DAILY 09/22/19 07/27/24 aspirin 81 mg tablet,delayed 81 mg PO DAILY 09/22/19 07/27/24 release (Adult Low Dose Aspirin) calcium carbonate 600 mg-vitamin 1 cap PO DAILY 09/22/19 07/27/24 D3 5 mcg (200 unit) capsule (Calcium 600 + D(3)) coenzyme Q10 10 mg capsule 10 mg PO ONCE 09/25/19 07/27/24 omega-3 fatty acids 1,000 mg 1,000 mg PO DAILY 07/02/20 07/27/24 capsule (Fish Oil Concentrate) vitamins A,C,Z-bray-ndplzb 2,148 2 tablet PO BID 05/15/21 07/27/24 mcg-113 mg-45 mg-17.4 mg tablet (PreserVision AREDS) zinc 50 mg tablet 50 mg PO DAILY 05/15/21 07/27/24 vitamin B complex (B 1 tablet DAILY 10/05/22 07/27/24 Complex-Vitamin B12 tablet) Allergies Allergy/AdvReac Type Severity Reaction Status Date / Time No Known Allergies Allergy Verified 07/27/24 15:54 Review of Systems Review of Systems: CONSTITUTIONAL: Endorses malaise, chills, sweats, fever EYES: Denies visual changes, redness, or discharge ENT: Reports rhinorrhea, congestion, sinus pain, denies otalgia, sore throat CARDIOVASCULAR: Denies chest pain, palpitations, edema RESPIRATORY: Reports cough, post nasal drainage. Denies dyspnea GASTROINTESTINAL: Denies abdominal pain, nausea, vomiting, diarrhea SKIN: Denies rash or itching MUSCULOSKELETAL: Endorses myalgia NEUROLOGIC: endorses headache PMFSH Past Medical History Medical History Abnormal colonoscopy 2020- tubular adenoma- repeat in 5 years Acute otitis media Acute sinusitis Anorexia Aortic valve regurgitation Status post aortic valve repair for aortic regurgitation August 16, 2019 at [facility]. Patient believe she may have had atrial fibrillation postoperatively for short period of time. States she is taking Coumadin through October ?to prevent clots.? Arthralgia Atrophic vaginitis Back muscle spasm Benign colon polyp Bilateral sacroiliitis Breast mass, left Breast pain, left Chest pain Chronic anticoagulation Chronic diastolic (congestive) heart failure CKD (chronic kidney disease) stage 3, GFR 30-59 ml/min Depression with anxiety Diarrhea Elevated troponin I level Fatigue GERD (gastroesophageal reflux disease) Hyperlipidemia Hypertension Hypertensive heart disease with chronic diastolic congestive heart failure Hypokalemia Hypothyroidism Hypothyroidism (acquired) Major depressive disorder, recurrent, moderate Mild valvular heart disease Mixed hyperlipidemia OAB (overactive bladder) Osteoarthritis Post-menopausal Pulmonary nodule Sacrococcygeal disorders, not elsewhere classified Screening for breast cancer SOB (shortness of breath) Spinal stenosis of lumbar region Tinnitus Trochanteric bursitis of both hips Vaginal irritation Vaginal itching Surgical History Surgical History H/O cardiac catheterization July 18, [address] Jimenes showed normal coronary arteries, normal left ventricular systolic function and ejection fraction, and severe aortic regurgitation. H/O: hysterectomy For endometriosis. History of colostomy Hx of aortic valve replacement August 16, [address] Mojica at [facility]. Hx of colonoscopy with polypectomy S/P cataract surgery S/P excision of lipoma I
== END 2024-07-27 16:15 | disposition home or self-care (01) ==
PROVIDERS: Emergency Provider Nurse Practitioner Family; PCP Family Medicine
DX: U07.1 COVID-19 (principal); I13.0 Hypertensive heart and chronic kidney disease with heart failure and stage 1 through stage 4 chronic kidney disease, or unspecified chronic kidney disease; N18.30 Chronic kidney disease, stage 3 unspecified; I50.32 Chronic diastolic (congestive) heart failure; K21.9 Gastro-esophageal reflux disease without esophagitis; E03.9 Hypothyroidism, unspecified; E78.2 Mixed hyperlipidemia; M19.90 Unspecified osteoarthritis, unspecified site; Z95.2 Presence of prosthetic heart valve; Z79.82 Long term (current) use of aspirin
CPT/HCPCS: 87081; 87426; 87804; 87880; 99213; G0463

== ENCOUNTER 2024-08-30 14:40 | Outpatient (CLI) | payer OTHER, SELFPAY ==
[2024-08-30 15:21] LABS: Add Urine Microscopic? YES; Appearance Urine Clear (Clear); Bacteria Urine None Seen /hpf; Bilirubin Urine Negative (Negative); Blood Urine Negative (Negative); Color Urine Yellow (Yellow); Glucose Urine UA Negative (Negative); Ketones Urine Negative (Negative); Leukocyte Esterase Ur 2+ LEU/UL (Negative); Nitrate Urine Negative (Negative); Non Pathogenic Casts 0-2; Protein Urine Negative (Negative); Specific Grav Ur 1.019 (1.001-1.035); Squamous Epithelial Cell Urine None Seen /hpf (Few); WBC Urine 51-100 /hpf (0-3); pH Urine 7.5 (5.0-9.0)
== END 2024-08-30 14:41 | disposition home or self-care (01) ==
LOC: ANHLAB 14:44
PROVIDERS: PCP Family Medicine; Visit Provider Physician Assistant
DX: R30.0 Dysuria (principal)
CPT/HCPCS: 81001; 87077; 87086; 87186

== ENCOUNTER 2024-09-26 14:48 | Outpatient (CLI) | payer OTHER, SELFPAY ==
--- NOTE | ~2024-09-26 | XR_ITS ---
XR foot RT 2V Ordering provider: Sharon Nicholson PA-C History: . M79.673 - Pain in unspecified foot . Comparison: None. FINDINGS: BONES: No acute fracture or dislocation. Calcaneus spur. Ossification of the insertion of the tendo Achilles. JOINT SPACES: Narrowing of the first phalangeal joint. Narrowing of the proximal and distal interphal angeal joints. No tarsal coalition. SOFT TISSUES: Normal. IMPRESSION: No acute osseous abnormality of the right foot. Reviewed, dictated and finalized at location A. CE CLERK
== END 2024-09-26 14:49 | disposition home or self-care (01) ==
LOC: MICIMG 14:48
PROVIDERS: PCP Family Medicine; Visit Provider Physician Assistant
DX: M79.671 Pain in right foot (principal); M79.673 Pain in unspecified foot
CPT/HCPCS: 73620

== ENCOUNTER 2025-02-05 14:44 | Outpatient (CLI) | payer OTHER, SELFPAY ==
--- NOTE | ~2025-02-05 | XR_ITS ---
XR shoulder RT min 2V Ordering provider: Perla Ardon PA-C History: . M25.511 - Pain in right shoulder . Comparison: None. FINDINGS: BONES: No acute fracture or dislocation. Degenerative changes in the area of the greater tuberosity. JOINT SPACES: The acromioclavicular joint shows mild osteoarthritic changes.. Mild osteoarthritis gle nohumeral joint space. SOFT TISSUES: Normal. IMPRESSION: No acute osseous abnormality right shoulder. Reviewed, dictated and finalized at location A.
== END 2025-02-05 14:45 | disposition home or self-care (01) ==
LOC: MICIMG 14:47
PROVIDERS: PCP Family Medicine; Visit Provider Student in an Organized Health Care Education/Training Program
DX: M25.511 Pain in right shoulder (principal); W19.XXXA Unspecified fall, initial encounter
CPT/HCPCS: 73030

== ENCOUNTER 2025-03-26 14:13 | Outpatient (CLI) | payer OTHER, SELFPAY ==
--- OUTSIDE RECORDS SUMMARY | 2025-03-26 14:52 | XMS_ITS | Continuity of Care Document ---
Author Organization [facility] Address [address] [place] [address] [address] [place] [address] Phone Care Team Providers Care Math And Physics Instructor Name Role Phone Karyna Maldonado Unavailable Unavailable Advance Directives Directive Yes / No Effective Date File Name No Information Encounters Encounter Description Practice Location Reason(s) For Visit Diagnoses Date Provider Providers Copied on Encounter [facility], [id number] [place] [address] [address], [place], [place], [id number], tel:[phone] [facility] No Information 6 Erica Troncoso. [address] , [facility] [address], [place], [place], [facility], [place]. tel:[phone] Referring Provider: Karyna Kelley, [address] [place] [address], [place], [place], [facility]. tel:[phone] Family History Family Member Type Diagnosis Age At Onset No Information Payers Payer name Insurance type Covered republican ID Authoriza tiwinifred(s) [facility] [id number] Social History Type Description Quantity Date Captured [...]
--- OUTSIDE RECORDS SUMMARY | 2025-03-26 14:52 | XMS_ITS | Clinical Summary ---
Author Organization [facility] Care Team Providers Care Broadcast Designer Name Role Phone Unavailable Primary Care Provider Unavailabl e Social History Tobacco Use Types Packs/Day Years Used Date Smoking Tobacco: Never Assessed Comments Unknown Sex and Gender Information Value Date Recorded Sex Assigned at Not on file Legal Sex Female 10:13 PM CDT Gender Identity Not on file Sexual Orientation Not on file Plan of Treatment Health Maintenance Due Date Last Done Comments DEXA Bone Density 1945 Hepatitis C Virus (HCV) Screening 1945 TdaP Immunization 1945 Pneumococcal Immunization (50+ years) (2 of 2 - PCV) 10/08/2015 10/08/2014 Respiratory Syncytial Virus (RSV) Immunization (Adult) (1 - 1-dose 75+ series) 2019 Influenza Immunization (#1) 07/23/202408/23, 09/10/2020, 09/27/2019, Additional history exists SARS-COV-2 Immunization ( season) 2024 11/28/2021, 02/11/2021, 01/21/2021 Pneumococcal Immunization Combined Discontinued 10/08/2014 Zoster Immunization Completed 11/11/2020, 0 Hepatitis B Immunization Aged Out No longer eligible based on patient's age to complete this topic Meningococcal Immunization (ACWY) Aged Out No longer eligible based on patient's age to complete this topic Rotavirus Immunization Aged Out No lo nger eligible based on patient's age to complete this topic
--- OUTSIDE RECORDS SUMMARY | 2025-03-26 14:52 | XMS_ITS | Encounter Summary ---
Author Organization [facility] Address [address] [place] [address] Care Team Providers Care Topper Press Operator Name Role Phone Janett Wharton MD Primary Care Provider [phone] Reason for Visit * Auth/Cert (Routine) Specialty Diagnoses / Procedures Referred By Contac t Referred To Contact Diagnoses SI (sacroiliac) joint dysfunction si Procedures BLOCK SACROILIAC JOINT Carlene Roger MD [facility] [address] [place] [address] Phone: tel: fax: Referral ID Status Reason Start Date Expiration Date Visits Re quested Visits Authorized [id number] 1 1 Encounter Details Date Type Department Care Team (Late st Contact Info) Description 08/25/2024 Hospital Encounter [facility] [place], [place] [id number] Carlene Roger MD [facility] [address] [place] [address] Social History Tobacco Use Types Packs/Day Years Used Date Smoking Tobacco: Never Smokeless Tobacco: Never Alcohol Use Standard Drinks/Week Comments Never 0 (1 standard drink = 0.6 oz pur e alcohol) AUDIT-C Answer Date Recorded Q1: How often do you have a drink containing alc ohol? Never 12/05/2020 Average Number of Drinks Not on file 021 Frequency of Binge Drinking Not on file 11/22 Comments No Sex and Gender Information Value Date Recorded Sex Assigned at Female 01/17/2025 12:47 PM MERCHANDISING STOCK ASSOCIATE Legal Sex Female 7:05 PM CDT Gender Identity Not on file Sexual Orientation Not on file documented as of this encounter Functional Status * Calculated C-SSRS Risk Score (Lifetime/Recent) Answer Date of Assessment Author Status No Risk Indicated 01/17/2025 12:52 PM MERCHANDISING STOCK ASSOCIATE Sabiha Villalobos, RN Active * [place] Suicide Severity Rating Scale (Screener/Recent Self-Report) Question Answer Date of Assessment Author Status 1. Wish to be (Past 1 Month) No 01/17/2025 12:52 PM MERCHANDISING STOCK ASSOCIATE Meri Villalobos RN Acti ve 2. Non-Specific Active Suicidal Thoughts (Past 1 Month) No 01/17/2025 12:52 PM MERCHANDISING STOCK ASSOCIATE Meri Villalobos, RN Acti ve 6. Suicidal Behavior (Lifetime) No 01/17/2025 12:52 PM MERCHANDISING STOCK ASSOCIATE Meri Villalobos, RN Acti ve documented as of this encounter Plan of Treatment Not on file documented as of this encounter Visit Diagnoses Diagnosis SI (sacroiliac) joint dysfunction- Primary Disorders of sacrum documented in this encounter Admitting Diagnoses Diagnosis SI (sacroiliac) joint dysfunction Disorders of sacrum documented in this encounter Care Teams Topper Press Operator Relationship Specialty Start Date End Date Janett Wharton MD [address] [facility] [address] [place] [address] PCP - General FAMILY PRACTICE 12/12/20 documented as of this encounter
--- OUTSIDE RECORDS SUMMARY | 2025-03-26 14:52 | XMS_ITS | Referral Summary ---
Author Organization [facility] [address] [place] [address] [address] [place] [address] Care Team Providers Care Senior Principal Process Engineer Name Role Phone Yovanny Latham MD Primary Care Provider Encounters Date Type Department Care Team Description 03/02/2025 1:30 PM CDT Office Visit [facility] Medical Group Cardiology at [address] [place] [id number] Jessica Parker MD Essential hypertension (Primary Dx); Chronic diastolic (congestive) heart failure (HCC); Presence of prosthetic heart valve; S/P AVR; Hyperlipidemia LDL goal <100; Hypothyroidism, unspecified type; DOHERTY (dyspnea on exertion) 02/28/2025 9:15 AM CDT Ancillary Procedure [facility] Medical Group Cardiology [address] [facility] [address] [place] [address] S/P AVR; Essential hypertension; Chronic diastolic (congestive) heart failure (HCC); DOHERTY (dyspnea on exertion) from Last 3 Months Allergies Active Allergy Reactions Criticality Noted Date Comments Antihistamines - Alkylamine Anxiety Low 01/27/20 12 Shaky and wired Medications multivitamin tablet tablet take 1 tablet by oral route every day with food 0 3 Active calcium carbonate-vitam in D3 (CALCIUM 600 WITH VITAMIN D3) 1500 mg (600 mg elemental) -200 units per tablet TAKE 1 TABLET BY MOUTH TWICE A DAY 0 3 Active ALPRAZolam (XANAX) 0.25 mg tablet take 1 tablet by oral route 3 times every day as needed 0 0 6 Active citalopram (CeleXA) 20 mg tablet 9 Active zinc 50 mg tablet Take by mouth 2 Active coenzyme Q10 10 mg capsule Take 1 capsule (10 mg total) by mouth daily Active levothyroxine (SYNTHROID) 75 mcg tablet Take 1 tablet (75 mcg total) by mouth shoulder joiner before breakfast 30 tablet 2 9 Active acetaminophen 500 mg capsuleIndicati ons:Pain Take 2 capsules (1,000 mg total) by mouth every 6 (six) hours 30 tablet 9 Active aspirin 81 mg enteric coated tabletIndicatio ns:S/P AVR Take 1 tablet (81 mg total) by mouth daily 30 tablet 11 9 Active atorvastatin (LIPITOR) 40 mg tablet Take 1 tablet (40 mg total) by mouth daily 90 tablet 2 0 Active omega-3 fatty acids-fish oil 300-1,000 mg capsule Active cyanocobalamin (Vitamin B-12) 1,000 mcg tabletIndicatio ns:Prevention of Vitamin B12 Deficiency Take 1 tablet (1,000 mcg total) by mouth daily Active citalopram (CeleXA) 10 mg tablet Take 1 tablet (10 mg total) by mouth daily Active vit C,J-Kz-vnmxb-ayla tein-zeaxan (PreserVision AREDS-2) 250-90-40-1 mg capsule Take by mouth Active losartan-hydroc hlorothiazide (HYZAAR) 100-25 mg per tablet Take 1 tablet by mouth daily 90 tablet 3 Active metoprolol tartrate (LOPRESSOR) 25 mg immediate release tabletIndicatio ns:Chronic diastolic (congestive) heart failure (HCC),DOHERTY (dyspnea on exertion) Take 1 tablet (25 mg total) by mouth 2 (two) times a day 180 tablet 3 4 04/18/20 25 Active Active Problems Problem Noted Date Diagnosed Date Fall 04/14/2021 Tinnitus 08/08/2020 Sensorineural hearing loss (SNHL) of both ears 0 08/08/2020 Hypokalemia 11/09/2019 S/P AVR 10/03/2019 Aftercare following surgery of the circulatory s ystem 09/19/2019 Nonrheumatic aortic valve insufficiency 08/08/20 19 Overview (08/08/2019): Added automatically from request for surgery [id number] Essential hypertension 06/15/2019 Hyperlipidemia LDL goal <100 06/15/2019 Hypothyroidism 06/15/2019 Stage 3 chronic kidney disease 06/15/2019 Chronic diastolic (congestive) heart failure Pleuritic chest pain 06/15/2019 DOHERTY (dyspnea on exertion) 06/15/2019 Chronic fatigue syndrome 12/19/2015 Overview (02/25/2017): Chronic fatigue Aortic valve insufficiency 12/19/2015 Overview (02/25/2017): Nonrheumatic aortic valve insufficiency 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 Social History Tobacco Use Types Packs/Day Years Used Date Smoking Tobacco: Never Smokeless Tobacco: Never Tobacco Cessation:Counseling Given: Not Answered Alcohol Use Standard Drinks/Week Comments No 0 (1 standard drink = 0.6 oz pur e alcohol) Comments No Sex and Gender Information Value Date Recorded Sex Assigned at Not on file 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 Gender Identity Not on file Sexual Orientation Not on file Last Filed Vital Signs Vital Sign Reading Time Taken Comments Blood Pressure 135/85 03/02/2025 1:50 PM CDT Pulse 87 03/02/2025 1:36 PM CDT Temperature 36.9 C (98.4 F) 04/19/2022 5:48 PM CDT Respiratory Rate 18 09/19/2019 8:26 AM CDT Oxygen Saturation 91% 03/02/2025 1:36 PM CDT Inhaled Oxygen Concentration - - Weight 79.4 kg (175 lb) 03/02/2025 1:36 PM CDT Height 162.6 cm (5' 4 ) 03/02/2025 1:36 PM CDT Body Mass Index 30.04 03/02/2025 1:36 PM CDT Plan of Treatment Not on file Medical Devices Implanted Type Area Postal Service Clerk Device Identifier Shelf Expiration Date Model / Serial / Lot Lo Lifesciences [id number] Jordan-Russell ds Perimount Magna Ease 23mm Bioprosthesis - [id number] - [id number] Implanted:Qty: 1 on 08/16/2019 by Ivan Raymond MD at [facility] Prosthetic Valve N/A: Aortic Valve Lo Lifesciences 05/03/2023 [id number] / [id number] / [id number] Procedures Procedure Name Priority Date/Time Associated Diagnosis Comments TRANSTHORACIC ECHO (TTE) COMPLETE W DOPPLER/CF WO CONTRAST Routine 02/28/2025 9:39 AM CDT S/P AVR Essential hypertension Chronic diastolic (congestive) heart failure (HCC) DOHERTY (dyspnea on exertion) from Last 3 Months Results * TRANSTHORACIC ECHO (TTE) COMPLETE W DOPPLER/CF WO CONTRAST (02/28/2025 9:39 AM CDT) LV EF 65-70 % CONS SCIMAGE Anatomical Region Laterality Modality Ultrasound 02/28/2025 9:15 AM CDT Narrative 02/28/2025 3:22 PM CDT [facility] Medical Group Cardiology [address] [facility] [address], [place] [address] [address] [facility] [address], [place] [address] P:[phone] P:[phone] Echocardiographic Report Patient Name: KATHY MERAZ L : 1945 Study Date: 02/28/2025 9:15:07 AM Gender: F Tech: Location: [place] Ref Provider: JESSICA PARKER Height(Cm): 163 BSA: 1.87 Weight(Kg): 77.6 Heart Rate: 76 BP: 122 / 86 Quality: Good Order Provider: JESSICA PARKER PROCEDURES: Echocardiographic Report: Transthoracic echocardiogram with complete 2D, M-Mode, and color Doppler examination. With Strain Analysis. INDICATIONS: Aortic Valve Replacement, Congestive Heart Failure, and Dyspnea on Exertion. MEASUREMENTS: 2D/MM Value Range Doppler Value Range EF Mod BP 60 % [ 54 - 74 ] CHINA Vmax 0.95 cm2 [ 2.00 - 4.00 ] EF Teich MM 70 % [ 54 - 74 ] AV Mean PG 19 mmHg Estimated EF 65-70 % AV Peak Dwight 2.97 m/s [ 1.00 - 1.70 ] LVIDd 2D 4.85 cm [ 3.80 - 5.20 ] AV Peak PG 35 mmHg LVIDd MM 4.56 cm [ 3.80 - 5.20 ] AV VTI 65.29 cm LVIDs 2D 2.89 cm [ 2.20 - 3.50 ] LVOT Diam 2.03 cm [ 1.70 - 2.10 ] LVIDs MM 2.76 cm [ 2.20 - 3.50 ] LVOT Peak Dwight 0.87 m/s [ 0.70 - 1.10 ] LVPWd 2D 0.84 cm [ 0.60 - 0.90 ] LVOT VTI 19.31 cm LVPWd MM 0.83 cm [ 0.60 - 0.90 ] MV E Peak Dwight 0.68 m/s [ 0.60 - 1.30 ] IVSd 2D 1.09 cm [ 0.60 - 0.90 ] MV A Peak Dwight 0.88 m/s [ 1.00 - 1.20 ] IVSd MM 0.74 cm [ 0.60 - 0.90 ] MV Decel Time 197 msec [ 104 - 258 ] LA Dimension MM 3.34 cm [ 2.70 - 3.80 ] PV Peak Dwight 0.54 m/s [ 0.40 - 0.80 ] AoR Diam MM 3.46 cm [ 2.70 - 3.70 ] TR Peak Dwight 2.37 m/s [ 1.00 - 2.80 ] LA Volume Index 22 cc/m2 [ 16 - 34 ] TR Peak PG 23 mmHg RVSP 31.00 mmHg [ 10.00 - 36.00 ] Lateral E` 0.05 m/s [ 0.10 - 0.15 ] E` 0.05 m/s E/E` 14 2D/MM Value Range Doppler Value Range - FINDINGS: Interpretation Site: Exam was interpreted at [facility]. Left Ventricle: Normal left ventricular systolic function. No focal wall motion abnormalities. Normal left ventricular size. Mild concentric left ventricular hypertrophy. Impaired diastolic relaxation Grade I. Ejection fraction is measured at 60 %. Ejection Fraction is visually estimated to be 65-70 %. Global Longitudinal Strain is -12 %. GLS is abnormal. Right Ventricle: Normal right ventricular size. Normal right ventricular systolic function. Left Atrium: There is mild enlargement of left atrium. Right Atrium: The right atrium is normal in size. Atrial Septum: Normal atrial septum. Mitral Valve: Normal appearance of the mitral valve. Mild mitral valve regurgitation. There is no hemodynamically significant mitral stenosis by Doppler. Aortic Valve: Moderate to severe aortic stenosis. Peak Velocity of 2.97 m/s. Peak gradient of 35.0 mmHg. Mean gradient of 19.0 mmHg. Valve area of 0.9 cm2. Mild aortic valve regurgitation. Gradients abnormal for valve type and size. Abnormally appearing aortic valve bioprosthesis. Tricuspid Valve: Normal appearance of the tricuspid valve. Normal right ventricular systolic pressure. Estimated peak RVSP is 31 mmHg. Mild tricuspid regurgitation. Pulmonic Valve: Normal appearance of the pulmonic valve. No pulmonic stenosis. Mild pulmonic regurgitation. Pericardium: Normal pericardium with no significant pericardial effusion. Aorta: Normal aortic root. IVC: Normal size and normal respiratory collapse consistent with normal right atrial pressure (<5 mmHg). CONCLUSIONS: Normal left ventricular systolic function. No focal wall motion abnormalities. Normal left ventricular size. Mild concentric left ventricular hypertrophy. Impaired diastolic relaxation Grade I. Ejection fraction is measured at 60 %. Ejection Fraction is visually estimated to be 65-70 %. Global Longitudinal Strain is -12 %. GLS is abnormal. There is mild enlargement of left atrium. Mild mitral valve regurgitation. Moderate to severe aortic stenosis. Peak Velocity of 2.97 m/s. Peak gradient of 35.0 mmHg. Mean gradient of 19.0 mmHg. Valve area of 0.9 cm2. Mild aortic valve regurgitation. Gradients abnormal for valve type and size. Abnormally appearing aortic valve bioprosthesis. Mild tricuspid regurgitation. Mild pulmonic regurgitation. Normal sinus rhythm. Electronically Signed By: Jessica Parker MD 02/28/2025 3:21:29 PM CDT Procedure Note Jessica Parker MD - 02/28/2025 [facility] Medical Group Cardiology [address], [place] [address] [address] [facility] [address], [place] [address] P:[phone] P:[phone] Echocardiographic Report Patient Name: KATHY MERAZ L : 1945 Study Date: 02/28/2025 9:15:07 AM Gender: F Tech: Location: [facility] Provider: JESSICA PARKER Height(Cm): 163 BSA: 1.87 Weight(Kg): 77.6 Heart Rate: 76 BP: 122 / 86 Quality: Good Order Provider: JESSICA PARKER PROCEDURES: Echocardiographic Report: Transthoracic echocardiogram with complete 2D, M-Mode, and color Dopplerexamination. With Strain Analysis. INDICATIONS: Aortic Valve Replacement, Congestive Heart Failure, and Dyspnea onExertion. MEASUREMENTS: 2D/MM Value Range Doppler ValueRange EF Mod BP 60 % [ 54 - 74 ] CHINA Vmax 0.95cm2 [ 2.00 - 4.00 ] EF Teich MM 70 % [ 54 - 74 ] AV Mean PG 19mmHg Estimated EF 65-70 % AV Peak Dwight 2.97m/s [ 1.00 - 1.70 ] LVIDd 2D 4.85 cm [ 3.80 - 5.20 ] AV Peak PG 35mmHg LVIDd MM 4.56 cm [ 3.80 - 5.20 ] AV VTI 65.29cm LVIDs 2D 2.89 cm [ 2.20 - 3.50 ] LVOT Diam 2.03 cm[ 1.70 - 2.10 ] LVIDs MM 2.76 cm [ 2.20 - 3.50 ] LVOT Peak Dwight 0.87m/s [ 0.70 - 1.10 ] LVPWd 2D 0.84 cm [ 0.60 - 0.90 ] LVOT VTI 19.31cm LVPWd MM 0.83 cm [ 0.60 - 0.90 ] MV E Peak Dwight 0.68m/s [ 0.60 - 1.30 ] IVSd 2D 1.09 cm [ 0.60 - 0.90 ] MV A Peak Dwight 0.88m/s [ 1.00 - 1.20 ] IVSd MM 0.74 cm [ 0.60 - 0.90 ] MV Decel Time 197msec [ 104 - 258 ] LA Dimension MM 3.34 cm [ 2.70 - 3.80 ] PV Peak Dwight 0.54m/s [ 0.40 - 0.80 ] AoR Diam MM 3.46 cm [ 2.70 - 3.70 ] TR Peak Dwight 2.37m/s [ 1.00 - 2.80 ] LA Volume Index 22 cc/m2 [ 16 - 34 ] TR Peak PG 23mmHg RVSP 31.00 mmHg [ 10.00 - 36.00 ] Lateral E` 0.05 m/s [ 0.10 - 0.15 ] E` 0.05 m/s E/E` 14 2D/MM Value Range Doppler ValueRange - FINDINGS: Interpretation Site: Exam was interpreted at [facility]. Left Ventricle: Normal left ventricular systolic function. No focal wall motionabnormalities. Normal left ventricular size. Mild concentric left ventricular hypertrophy.Impaired diastolic relaxation Grade I. Ejection fraction is measured at 60 %. EjectionFraction is visually estimated to be 65-70 %. Global Longitudinal Strain is -12 %. GLS isabnormal. Right Ventricle: Normal right ventricular size. Normal right ventricular systolicfunction. Left Atrium: There is mild enlargement of left atrium. Right Atrium: The right atrium is normal in size. Atrial Septum: Normal atrial septum. Mitral Valve: Normal appearance of the mitral valve. Mild mitral valve regurgitation.There is no hemodynamically significant mitral stenosis by Doppler. Aortic Valve: Moderate to severe aortic stenosis. Peak Velocity of 2.97 m/s. Peakgradient of 35.0 mmHg. Mean gradient of 19.0 mmHg. Valve area of 0.9 cm2. Mild aortic valveregurgitation. Gradients abnormal for valve type and size. Abnormally appearing aorticvalve bioprosthesis. Tricuspid Valve: Normal appearance of the tricuspid valve. Normal right ventricularsystolic pressure. Estimated peak RVSP is 31 mmHg. Mild tricuspid regurgitation. Pulmonic Valve: Normal appearance of the pulmonic valve. No pulmonic stenosis. Mildpulmonic regurgitation. Pericardium: Normal pericardium with no significant pericardial effusion. Aorta: Normal aortic root. IVC: Normal size and normal respiratory collapse consistent with normal rightatrial pressure (<5 mmHg). CONCLUSIONS: Normal left ventricular systolic function. No focal wall motionabnormalities. Normal left ventricular size. Mild concentric left ventricular hypertrophy.Impaired diastolic relaxation Grade I. Ejection fraction is measured at 60 %. EjectionFraction is visually estimated to be 65-70 %. Global Longitudinal Strain is -12 %. GLS isabnormal. There is mild enlargement of left atrium. Mild mitral valve regurgitation. Moderate to severe aortic stenosis. Peak Velocity of 2.97 m/s. Peakgradient of 35.0 mmHg. Mean gradient of 19.0 mmHg. Valve area of 0.9 cm2. Mild aortic valveregurgitation. Gradients abnormal for valve type and size. Abnormally appearing aorticvalve bioprosthesis. Mild tricuspid regurgitation. Mild pulmonic regurgitation. Normal sinus rhythm. Electronically Signed By: Jessica Parker MD 02/28/2025 3:21:29 PM CDT Jessica Parker MD CV ECHO PROCEDURES Final Result from Last 3 Months Insurance [facility] Member Subscriber Plan / Payer (Ef fective 2018-Present) Name:Kathy Meraz Estrella Relation to Subscriber:Self Name:Kathy Meraz Payer ID:[id number] (NAIC) Type:MEDICARE RISK OTHER Address: [place] [id number] [facility] Advance Directives For more information, please contact: [phone] * Full Code (Latest Code Status on File) Date Activated Date Inactivated Comments 08/16/2019 1:39 PM 08/23/2019 5:13 PM Care Teams Senior Principal Process Engineer Relationship Specialty Start Date End Date Yovanny Latham MD [address] [address] PCP - General Family Medicine 01/18/25
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
--- OUTSIDE RECORDS SUMMARY | 2025-03-26 14:52 | XMS_ITS | Encounter Summary ---
Author Organization [facility] Address [address] [place] [id number] Care Team Providers Care Body And Frame Man Name Role Phone Janett Wharton MD Primary Care Provider [phone] Encounter Details Date Type Department Care Team (Late st Contact Info) Description 12/10/2020 Prep for Procedure [facility] [place] [address] Agnes Huitron MD [address] [place] [address] [place] [id number] Social History Tobacco Use Types Packs/Day [...] Binge Drinking Not on file 11/22 Comments Unknown Sex and Gender Information Value Date Recorded Sex Assigned at Female 01/17/2025 12:47 PM [employer] G[employer] TECHNICIAN Legal Sex Female 7:05 PM CDT Gender Identity Not on file Sexual Orientation Not on file COVID-19 Exposure Response Date Recorded In the last month, have you been in contact with someone who was confirmed or suspected to have Coronavirus / COVID-19? No / Unsure 12/13/2020 9:08 AM [employer]CADE GAME TECHNICIAN documented as of this encounter Plan of Treatment Not on file documented as of this encounter Results * PRE-SURGICAL/PRE-PROCEDURE CORONAVIRUS (COVID 19) (12/10/2020 11:10 AM ARCADE GAME TECHNICIAN) CORONAVIRUS SARS COV 2 PCR (RESP) NOT DETECTED NOT DETECTED 12/11/2020 9:31 PM ARCADE GAME TECHNICIAN [employer] [facility] Comment: A Not Detected (negative) test result for this test means that SARS- CoV-2 RNA was not present in the specimen above the limit of detection. A negative result does not rule out the possibility of COVID-19 and should not be used as the sole basis for treatment or patient management decisions. If COVID-19 is still suspected, based on exposure history together with other clinical findings, re-testing should be considered in consultation with public health authorities. Laboratory test results should always be considered in the context of clinical observations and epidemiological data in making a final diagnosis and patient management decisions. Please review the Fact Sheets and FDA authorized labeling available for health care providers and patients using the following websites: https://www.[employer].Yodle/home/Covid-19/HCP/[facility]/fact- sheet.html https://www.[employer].Yodle/home/Covid-19/Patients/ Quest[employer]/fact-sheet.html This test has been authorized by the FDA under an Emergency Use Authorization (EUA) for use by authorized laboratories. Due to the current public health emergency, [facility] is receiving a high volume of samples from a wide variety of swabs and media for COVID-19 testing. In order to serve patients during this public health crisis, samples from appropriate clinical sources are being tested. Negative test results derived from specimens received in non-commercially manufactured viral collection and transport media, or in media and sample collection kits not yet authorized by FDA for COVID-19 testing should be cautiously evaluated and the patient potentially subjected to extra precautions such as additional clinical monitoring, including collection of an additional specimen. Methodology: Nucleic Acid Amplification Test (NAAT) includes RT-PCR or TMA Additional information about COVID-19 can be found at the [facility] website: www.[employer].Yodle/Covid19. Test performed at [employer] [facility] [address] [place] [address] Director: MILAN MONROY DO,MPH FIRST TEST YES 12/10/2020 9:04 AM ARCADE GAME TECHNICIAN [facility] EMPLOYED IN HEALTHCARE NO 12/10/2020 9:04 AM [employer]CADE GAME TECHNICIAN [facility] SYMPTOMATIC DEFINED BY CDC NO 12/10/2020 9:04 AM ARCADE GAME TECHNICIAN [facility] DATE OF SYMPTOM ONSET NO 12/10/2020 12:30 PM [employer]CADE GAME TECHNICIAN [facility] HOSPITALIZATION STATUS NO 12/10/2020 9:04 AM [employer] GAME TECHNICIAN [facility] PATIENT IN ICU NO 12/10/2020 9:04 AM ARCADE GAME TECHNICIAN [facility] RESIDENT OF [facility] UNKNOWN 12/10/2020 9:04 AM ARCADE GAME TECHNICIAN [facility] NO 12/10/2020 12:30 PM ARCADE GAME TECHNICIAN [facility] PATIENT'S RACE WHITE OR 12/10/2020 9:04 AM AR[employer] GAME TECHNICIAN [facility] ETHNICITY NONHISPANIC 12/10/2020 9:04 AM AR[employer]ADE GAME TECHNICIAN [facility] SOURCE (QST) NASOPHARYNGEAL SWAB 12/10/2020 9:04 AM ARCADE GAME TECHNICIAN [facility] NASOPHARYNGEAL SWAB / Unknown 12/10/2020 11:10 AM ARCADE GAME TECHNICIAN us Agnes Huitron MD MICROBIOLOGY - GENERAL ORDERABLE S Final Result [facility] [address] [place] [address], [place] [phone] [employer] [facility] [id number] [place] [address], documented in this encounter Visit Diagnoses Diagnosis History of colon polyps- Primary Personal history of colonic polyps documented in this encounter Additional Health Concerns Infection Onset Date Last Indicated Resolved Time COVID-19 Rule Out 12/10/2020 12/10/2020 12/11/2020 9:31 PM [employer]CADE GAME TECHNICIAN documented as of this encounter Care Teams Body And Frame Man Relationship Specialty Start Date End Date Janett Wharton MD [address] [facility] [facility] [address] [place] [address] PCP - General FAMILY PRACTICE 12/12/20 documented as of this encounter
--- OUTSIDE RECORDS SUMMARY | 2025-03-26 14:52 | XMS_ITS | Clinical Summary ---
Author Organization [facility] Address Formerly [facility] [place] [address] Care Team Providers Care Meat Packager Name Role Phone Janett Wharton MD Primary Care Provider [phone] Allergies Active Allergy Reactions Criticality Noted Date Comments Antihistamines, Chlorpheniramine-Type Anxiety Low 12/05/2020 Antihistamines, Loratadine-Type Anxiety Low 05/2012 Shaky and wired Medications metoprolol tartrate 50 MG tablet Take 1 tablet (50 mg total) by mouth 2 (two) times daily. Active levothyroxine 75 MCG tablet Take 1 tablet (75 mcg total) by mouth every morning. Active atorvastatin 40 MG tablet Take 1 tablet (40 mg total) by mouth nightly at bedtime. Active citalopram 20 MG tablet Take 1 tablet (20 mg total) by mouth daily. Takes w/10mg tab Active aspirin EC (ECOTRIN) 81 MG tablet Take 1 tablet (81 mg total) by mouth daily. Active Multiple Vitamin (MULTIVITAMIN ADULT OR) Active zinc gluconate 50 MG Tab Take 1 tablet (50 mg total) by mouth daily. Active calcium carbonate-vitam in D 500-200 MG-UNIT Tab tablet Take 1 tablet by mouth daily. Active Coenzyme Q10 (COQ10) 100 MG Cap Active losartan-hydroC HLOROthiazide 100-25 MG tablet Take 1 tablet by mouth daily. 08/22/2020 Active vitamin B-12 (CYANOCOBALAMIN ) (CYANOCOBALAMIN ) 1000 mcg tablet Take 1 tablet (1,000 mcg total) by mouth daily. Active latanoprost (XALATAN) 0.005 % ophthalmic solution INSTILL 1 DROP IN EACH EYE DAILY AT BEDTIME 06/09/2023 Active Multiple Vitamins-Minera ls (PRESERVISION AREDS 2) Cap Take by mouth Act yovany citalopram (CELEXA) 10 MG tablet Take 1 tablet (10 mg total) by mouth daily. Takes w/20mg tab 09/12/2023 Active lidocaine (LIDO BENITEZ) 4 % patch Place 1 patch onto the skin daily. Remove & Discard patch within 12 hours or as directed 30 patch 01/17/2025 Active Active Problems Problem Noted Date Diagnosed Date SI (sacroiliac) joint dysfunction 02/14/2024 Encounters Date Type Department Care Team Description 01/17/2025 1:16 PM OPERATING ROOM ASSISTANT - 01/17/2025 3:23 PM OPERATING ROOM ASSISTANT Emergency [facility] [place] [address] Alida Walton, AUTOMATIC DEVELOPER Fall Discharge Disposition: Home or Self Care (Routine Discharge) 01/17/2025 Travel from Last 3 Months Immunizations Immunization Administration Dates Next Due Tdap (Boostrix) 01/17/2025 Family History Relation Status Comments Father Mother Social History Tobacco Use Types Packs/Day Years Used Date Smoking Tobacco: Never Smokeless Tobacco: Never Tobacco Cessation:Counseling Given: Not Answered Alcohol Use Standard Drinks/Week Comments Never 0 [...] Sex Assigned at Female 01/17/2025 12:47 PM OPERATING ROOM ASSISTANT Legal Sex Female 7:05 PM CDT Gender Identity Not on file Sexual Orientation Not on file Last Filed Vital Signs Vital Sign Reading Time Taken Comments Blood Pressure 170/87 01/17/2025 3:04 PM OPERATING ROOM ASSISTANT Pulse 85 01/17/2025 3:04 PM OPERATING ROOM ASSISTANT Temperature 36.6 C (97.8 F) 01/17/2025 12:44 PM OPERATING ROOM ASSISTANT Respiratory Rate 19 01/17/2025 12:44 PM OPERATING ROOM ASSISTANT Oxygen Saturation 97% 01/17/2025 3:04 PM OPERATING ROOM ASSISTANT Inhaled Oxygen Concentration - - Weight 77.1 kg (170 lb) 01/17/2025 12:44 PM OPERATING ROOM ASSISTANT Height 162.6 cm (5' 4 ) 01/17/2025 12:44 PM OPERATING ROOM ASSISTANT Body Mass Index 29.18 01/17/2025 12:44 PM OPERATING ROOM ASSISTANT Plan of Treatment Health Maintenance Due Date Last Done Comments Pneumococcal Vaccine: 50+ Years (1 of 1 - PCV) 1994 Annual Medicare Wellness Visit 2009 Dexa Scan (General) 2009 RSV Immunization or 60+ Years (1 - 1-dose 75+ series) 2019 COVID-19 Vaccine ( - 2023-2 5 season) 2024 DTaP, Tdap and Td Vaccines ( 2 - Td or Tdap) 01/17/2035 01/17/2025 Zoster Vaccines Completed 11/11/2020, 09/10/2020 Meningococcal B Vaccine Aged Out No l onger eligible based on patient's age to complete this topic Meningococcal Vaccine Aged Out No juan ramon wenceslao eligible based on patient's age to complete this topic RSV Immunizations Under 20 Months Aged Out No longer eligible b ased on patient's age to complete this topic Procedures Procedure Name Priority Date/Time Associated Diagnosis Comments CT CERV SPINE WO CON STAT 01/17/2025 1:39 [address] FACIAL BONES WO CON STAT 01/17/2025 1:39 PM OPERATING ROOM [address] CT HEAD WO CON STAT 01/17/2025 1:39 PM OPERATING ROOM ASSISTANT XR ELBOW RT M3V STAT 01/17/2025 1:13 PM OPERATING ROOM ASSISTANT from Last 3 Months Results * CT HEAD WO CON (01/17/2025 1:39 PM OPERATING ROOM ASSISTANT) Anatomical Region Laterality Modality Head Computed Tomogra phy 01/17/2025 1:53 PM OPERATING ROOM ASSISTANT Impressions 01/17/2025 1:55 PM OPERATING ROOM ASSISTANT IMPRESSION: 1. No CT evidence of an acute intracranial abnormality. 2. No maxillofacial bone fracture. 3. No cervical spine fracture. Ordered By: ALIDA WALTON Interpreted By: Shankar Hernandez MD, 01/17/2025 1:53 PM Narrative 01/17/2025 1:55 PM OPERATING ROOM ASSISTANT [address] [address] EXAMINATION: CT head, CT maxillofacial bones, CT cervical spine [id number], [id number] EXAM DATE/TIME: 01/17/2025 1:32 PM REASON FOR EXAM: facial trauma after fall COMPARISON: None available TECHNIQUE: Noncontrast CT examination of the head, maxillofacial bones and cervical spine performed with axial images obtained. Additional coronal and sagittal reformatted images were generated at a separate workstation. A dose lowering technique was used for this procedure, which may include, but is not limited to, dose reduction technique, automated exposure control, iterative reconstruction, ALARA (As Low As Reasonably Achievable), or Image Gently techniques. FINDINGS: CT HEAD: There is no acute intracranial hemorrhage. There is no extra-axial fluid collection. Mild global cerebral volume loss with ex vacuo dilatation of ventricles and cerebral sulci. Basal cisterns appear normal. Prior bilateral ocular lens extractions with prosthetic lens implantation. Paranasal sinuses and mastoid air cells are well aerated. There is no acute fracture nor destructive process of the visualized osseous structures. CT MAXILLOFACIAL BONES: Orbital roof and floor intact bilaterally. Lamina papyracea are intact. The zygomas are intact. Mild bilateral TMJ osteoarthritis. The mandible is intact. Nasal bones and nasal septum are intact. CT CERVICAL SPINE: The cervical vertebral bodies and facets are well aligned. The cervical vertebral body heights are preserved. There is no acute fracture nor destructive process of the visualized osseous structures. Intervertebral disc height loss at C4-5, C5-6 and C6-7 with endplate degenerative changes at these levels. No abnormal prevertebral or paraspinal soft tissue swelling. Procedure Note Shankar Hernandez MD - 01/17/[address] [address] EXAMINATION: CT head, CT maxillofacial bones, CT cervical spine [id number], [id number] EXAM DATE/TIME: 01/17/2025 1:32 PM REASON FOR EXAM: facial trauma after fall COMPARISON: None available TECHNIQUE: Noncontrast CT examination of the head, maxillofacial bones andcervical spine performed with axial images obtained. Additional coronaland sagittal reformatted images were generated at a separate workstation.A dose lowering technique was used for this procedure, which may include,but is not limited to, dose reduction technique, automated exposurecontrol, iterative reconstruction, ALARA (As Low As ReasonablyAchievable), or Image Gently techniques. FINDINGS: CT HEAD: There is no acute intracranial hemorrhage. There is noextra-axial fluid collection. Mild global cerebral volume loss with exvacuo dilatation of ventricles and cerebral sulci. Basal cisterns appearnormal. Prior bilateral ocular lens extractions with prosthetic lensimplantation. Paranasal sinuses and mastoid air cells are well aerated.There is no acute fracture nor destructive process of the visualizedosseous structures. CT MAXILLOFACIAL BONES: Orbital roof and floor intact bilaterally. Laminapapyracea are intact. The zygomas are intact. Mild bilateral TMJosteoarthritis. The mandible is intact. Nasal bones and nasal septum areintact. CT CERVICAL SPINE: The cervical vertebral bodies and facets are wellaligned. The cervical vertebral body heights are preserved. There is noacute fracture nor destructive process of the visualized osseousstructures. Intervertebral disc height loss at C4-5, C5-6 and C6-7 withendplate degenerative changes at these levels. No abnormal prevertebral orparaspinal soft tissue swelling. IMPRESSION: 1. No CT evidence of an acute intracranial abnormality. 2. No maxillofacial bone fracture. 3. No cervical spine fracture. Ordered By: ALIDA WALTON Interpreted By: Shankar Hernandez MD, 01/17/2025 1:53 PM us Alida Walton AUTOMATIC DEVELOPER CT Final Resul t * CT FACIAL BONES WO CON (01/17/2025 1:39 PM OPERATING ROOM ASSISTANT) Anatomical Region Laterality Modality Facial Computed Tomogra phy 01/17/2025 1:53 PM OPERATING ROOM ASSISTANT Impressions 01/17/2025 1:55 PM OPERATING ROOM ASSISTANT IMPRESSION: 1. No CT evidence of an acute intracranial abnormality. 2. No maxillofacial bone fracture. 3. No cervical spine fracture. Ordered By: ALIDA WALTON Interpreted By: Shankar Hernandez MD, 01/17/2025 1:53 PM Narrative 01/17/2025 1:55 PM OPERATING ROOM ASSISTANT [address] [address] EXAMINATION: CT head, CT maxillofacial bones, CT cervical spine [id number], [id number] EXAM DATE/TIME: 01/17/2025 1:32 PM REASON FOR EXAM: facial trauma after fall COMPARISON: None available TECHNIQUE: Noncontrast CT examination of the head, maxillofacial bones and cervical spine performed with axial images obtained. Additional coronal and sagittal reformatted images were generated at a separate workstation. A dose lowering technique was used for this procedure, which may include, but is not limited to, dose reduction technique, automated exposure control, iterative reconstruction, ALARA (As Low As Reasonably Achievable), or Image Gently techniques. FINDINGS: CT HEAD: There is no acute intracranial hemorrhage. There is no extra-axial fluid collection. Mild global cerebral volume loss with ex vacuo dilatation of ventricles and cerebral sulci. Basal cisterns appear normal. Prior bilateral ocular lens extractions with prosthetic lens implantation. Paranasal sinuses and mastoid air cells are well aerated. There is no acute fracture nor destructive process of the visualized osseous structures. CT MAXILLOFACIAL BONES: Orbital roof and floor intact bilaterally. Lamina papyracea are intact. The zygomas are intact. Mild bilateral TMJ osteoarthritis. The mandible is intact. Nasal bones and nasal septum are intact. CT CERVICAL SPINE: The cervical vertebral bodies and facets are well aligned. The cervical vertebral body heights are preserved. There is no acute fracture nor destructive process of the visualized osseous structures. Intervertebral disc height loss at C4-5, C5-6 and C6-7 with endplate degenerative changes at these levels. No abnormal prevertebral or paraspinal soft tissue swelling. Procedure Note Shankar Hernandez MD - 01/17/2025 [facility] [address] [place], [place] [address] EXAMINATION: CT head, CT maxillofacial bones, CT cervical spine [id number], [id number] EXAM DATE/TIME: 01/17/2025 1:32 PM REASON FOR EXAM: facial trauma after fall COMPARISON: None available TECHNIQUE: Noncontrast CT examination of the head, maxillofacial bones andcervical spine performed with axial images obtained. Additional coronaland sagittal reformatted images were generated at a separate workstation.A dose lowering technique was used for this procedure, which may include,but is not limited to, dose reduction technique, automated exposurecontrol, iterative reconstruction, ALARA (As Low As ReasonablyAchievable), or Image Gently techniques. FINDINGS: CT HEAD: There is no acute intracranial hemorrhage. There is noextra-axial fluid collection. Mild global cerebral volume loss with exvacuo dilatation of ventricles and cerebral sulci. Basal cisterns appearnormal. Prior bilateral ocular lens extractions with prosthetic lensimplantation. Paranasal sinuses and mastoid air cells are well aerated.There is no acute fracture nor destructive process of the visualizedosseous structures. CT MAXILLOFACIAL BONES: Orbital roof and floor intact bilaterally. Laminapapyracea are intact. The zygomas are intact. Mild bilateral TMJosteoarthritis. The mandible is intact. Nasal bones and nasal septum areintact. CT CERVICAL SPINE: The cervical vertebral bodies and facets are wellaligned. The cervical vertebral body heights are preserved. There is noacute fracture nor destructive process of the visualized osseousstructures. Intervertebral disc height loss at C4-5, C5-6 and C6-7 withendplate degenerative changes at these levels. No abnormal prevertebral orparaspinal soft tissue swelling. IMPRESSION: 1. No CT evidence of an acute intracranial abnormality. 2. No maxillofacial bone fracture. 3. No cervical spine fracture. Ordered By: ALIDA WALTON Interpreted By: Shankar Hernandez MD, 01/17/2025 1:53 PM us Alida Walton AUTOMATIC DEVELOPER CT Final Resul t * CT CERV SPINE WO CON (01/17/2025 1:39 PM OPERATING ROOM ASSISTANT) Anatomical Region Laterality Modality Spine Computed Tomogra phy 01/17/2025 1:53 PM OPERATING ROOM ASSISTANT Impressions 01/17/2025 1:55 PM OPERATING ROOM ASSISTANT IMPRESSION: 1. No CT evidence of an acute intracranial abnormality. 2. No maxillofacial bone fracture. 3. No cervical spine fracture. Ordered By: ALIDA WALTON Interpreted By: Shankar Hernandez MD, 01/17/2025 1:53 PM Narrative 01/17/2025 1:55 PM OPERATING ROOM ASSISTANT [address] [address] EXAMINATION: CT head, CT maxillofacial bones, CT cervical spine [id number], [id number] EXAM DATE/TIME: 01/17/2025 1:32 PM REASON FOR EXAM: facial trauma after fall COMPARISON: None available TECHNIQUE: Noncontrast CT examination of the head, maxillofacial bones and cervical spine performed with axial images obtained. Additional coronal and sagittal reformatted images were generated at a separate workstation. A dose lowering technique was used for this procedure, which may include, but is not limited to, dose reduction technique, automated exposure control, iterative reconstruction, ALARA (As Low As Reasonably Achievable), or Image Gently techniques. FINDINGS: CT HEAD: There is no acute intracranial hemorrhage. There is no extra-axial fluid collection. Mild global cerebral volume loss with ex vacuo dilatation of ventricles and cerebral sulci. Basal cisterns appear normal. Prior bilateral ocular lens extractions with prosthetic lens implantation. Paranasal sinuses and mastoid air cells are well aerated. There is no acute fracture nor destructive process of the visualized osseous structures. CT MAXILLOFACIAL BONES: Orbital roof and floor intact bilaterally. Lamina papyracea are intact. The zygomas are intact. Mild bilateral TMJ osteoarthritis. The mandible is intact. Nasal bones and nasal septum are intact. CT CERVICAL SPINE: The cervical vertebral bodies and facets are well aligned. The cervical vertebral body heights are preserved. There is no acute fracture nor destructive process of the visualized osseous structures. Intervertebral disc height loss at C4-5, C5-6 and C6-7 with endplate degenerative changes at these levels. No abnormal prevertebral or paraspinal soft tissue swelling. Procedure Note Shankar Hernandez MD - 01/17/[address] [address] EXAMINATION: CT head, CT maxillofacial bones, CT cervical spine [id number], [id number] EXAM DATE/TIME: 01/17/2025 1:32 PM REASON FOR EXAM: facial trauma after fall COMPARISON: None available TECHNIQUE: Noncontrast CT examination of the head, maxillofacial bones andcervical spine performed with axial images obtained. Additional coronaland sagittal reformatted images were generated at a separate workstation.A dose lowering technique was used for this procedure, which may include,but is not limited to, dose reduction technique, automated exposurecontrol, iterative reconstruction, ALARA (As Low As ReasonablyAchievable), or Image Gently techniques. FINDINGS: CT HEAD: There is no acute intracranial hemorrhage. There is noextra-axial fluid collection. Mild global cerebral volume loss with exvacuo dilatation of ventricles and cerebral sulci. Basal cisterns appearnormal. Prior bilateral ocular lens extractions with prosthetic lensimplantation. Paranasal sinuses and mastoid air cells are well aerated.There is no acute fracture nor destructive process of the visualizedosseous structures. CT MAXILLOFACIAL BONES: Orbital roof and floor intact bilaterally. Laminapapyracea are intact. The zygomas are intact. Mild bilateral TMJosteoarthritis. The mandible is intact. Nasal bones and nasal septum areintact. CT CERVICAL SPINE: The cervical vertebral bodies and facets are wellaligned. The cervical vertebral body heights are preserved. There is noacute fracture nor destructive process of the visualized osseousstructures. Intervertebral disc height loss at C4-5, C5-6 and C6-7 withendplate degenerative changes at these levels. No abnormal prevertebral orparaspinal soft tissue swelling. IMPRESSION: 1. No CT evidence of an acute intracranial abnormality. 2. No maxillofacial bone fracture. 3. No cervical spine fracture. Ordered By: ALIDA WALTON Interpreted By: Shankar Hernandez MD, 01/17/2025 1:53 PM us Alida Walton AUTOMATIC DEVELOPER CT Final Resul t * XR ELBOW RT M3V (01/17/2025 1:13 PM OPERATING ROOM ASSISTANT) Anatomical Region Laterality Modality Elbow Radiographic Amanda ging 01/17/2025 1:17 PM OPERATING ROOM ASSISTANT Impressions 01/17/2025 1:20 PM OPERATING ROOM ASSISTANT IMPRESSION: No acute bone findings. Referred By: Interpreted By: Bon Beltran MD, 01/17/2025 1:17 PM Narrative 01/17/2025 1:20 PM OPERATING ROOM ASSISTANT [address] [address] EXAM: XR ELBOW RT M3V DATE: 01/17/2025 No comparison a INDICATION: Fell, right arm pain TECHNIQUE: 3 views FINDINGS: No fracture, malalignment, or evidence of a joint effusion. Probable small peripheral osteophytes at the margin of the radial head account for a subtle band of ill-defined sclerosis. Procedure Note Bon Beltran MD - 01/17/[address] [address] EXAM: XR ELBOW RT M3V DATE: 01/17/2025 No comparison a INDICATION: Fell, right arm pain TECHNIQUE: 3 views FINDINGS: No fracture, malalignment, or evidence of a joint effusion.Probable small peripheral osteophytes at the margin of the radial headaccount for a subtle band of ill-defined sclerosis. IMPRESSION: No acute bone findings. Referred By: Interpreted By: Bon Beltran MD, 01/17/2025 1:17 PM us Alida Walton AUTOMATIC DEVELOPER GENERAL IMAGING Final Resul t from Last 3 Months Insurance [employer] Care Teams Meat Packager Relationship Specialty Start Date End Date Janett Wharton MD [address] [facility] [address] [place] [address] PCP - General FAMILY PRACTICE 12/12/20
[2025-03-26 14:59] LABS: Add Urine Microscopic? YES; Appearance Urine Clear (Clear); Bacteria Urine None Seen /hpf; Bilirubin Urine Negative (Negative); Blood Urine Negative (Negative); Color Urine Yellow (Yellow); Glucose Urine UA Negative (Negative); Ketones Urine Negative (Negative); Leukocyte Esterase Ur Trace LEU/UL (Negative); Nitrate Urine Negative (Negative); Non Pathogenic Casts 0-2; Protein Urine Negative (Negative); Specific Grav Ur 1.017 (1.001-1.035); Squamous Epithelial Cell Urine None Seen /hpf (Few); WBC Urine 0-5 /hpf (0-3); pH Urine 6.5 (5.0-9.0)
== END 2025-03-26 14:14 | disposition home or self-care (01) ==
PROVIDERS: PCP Family Medicine; Visit Provider Physician Assistant Medical
DX: R35.0 Frequency of micturition (principal); R30.0 Dysuria
CPT/HCPCS: 81001; 87086

== ENCOUNTER 2025-03-29 14:47 | Outpatient (CLI) | payer OTHER, SELFPAY ==
--- NOTE | ~2025-03-29 | XR_ITS ---
HISTORY: fall. right lip nodule COMPARISON: None TECHNIQUE: 3 views of the facial bones were performed FINDINGS: No acute or subacute fracture. Osseous structures are symmetric. Soft tissues are unremarkable without foreign body or significant calcification. Age-appropriate mineralization. IMPRESSION: No acute or subacute facial bone fracture, as detailed above. Reviewed, dictated and finalized at location A.
== END 2025-03-29 14:48 | disposition home or self-care (01) ==
LOC: MICIMG 14:48
PROVIDERS: PCP Family Medicine; Visit Provider Physician Assistant
DX: K13.0 Diseases of lips (principal)
CPT/HCPCS: 70150

== ENCOUNTER 2025-09-23 18:09 | Emergency (ER) | payer OTHER, SELFPAY ==
--- OUTSIDE RECORDS SUMMARY | 2006-06-01 06:30 | XMS_ITS | Continuity of Care Document ---
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 [address] , [facility], [address], [place], [place], [facility] [place], [place]. tel:[phone] Referring Provider: Karyna Kelley, [address] [place] [address], [place], [place], [facility] [place]. tel:[phone] Family History Family Member Type Diagnosis Age At Onset No Information Payers Payer name Insurance type Covered constitution party ID Authoriza tiwinifred(s) [facility] CI [id number] Social History Type Description Quantity Date Captured Comments Sex Female Smoking Status No Information Chief Complaint And Reason For Visit No Information Reason For Referral Reason For Referral No Information History Of Present Illness Encounter Date Complaint History Of Prese nt Illness No Information Functional Status Date Functional Assessmen t No Information Instructions Date Instruction Additional Infor mation No Information Assessments Type Assessment Date No Information Patient Care Teams Name Effective Dates (start - stop) Status Members No Information
--- OUTSIDE RECORDS SUMMARY | 2025-09-23 18:12 | XMS_ITS | Patient Health Record ---
Author Organization [facility] Address [address] [place], [place] [address] Care Team Providers Care Aml Analyst Name Role Phone VALENCIA PAYNE Unavailable [phone] Keli Whartonia Unavailable Unavailable Reason For Referral No Information Medications Medication SIG (Take, Route, Frequency, Duration) Notes Start Date End Date Status citalopram 10 MG Oral Tablet ORAL citalopram 10 MG Oral TabletOriginal Medicationcitalopram 10 MG Oral Tablet *Reorder from [employer] for eRx and Interaction Alerts* Active atorvastatin 10 MG Oral Tablet ORAL atorvastatin 10 MG Oral TabletOriginal Medicationatorvastatin 10 MG Oral Tablet *Reorder from [employer] for eRx and Interaction Alerts* Active calcium carbonate 1250 MG Oral Tablet ORAL calcium carbonate 1250 MG Or al TabletOriginal Medicationcalcium carbonate 1250 MG Oral Tablet *Reorder from [employer] for [employer] and Interaction Alerts* 020 Active hydroCHLOROthiazide 12.5 MG Oral Tablet ORAL hydrochlorothiazide 12.5 MG Oral TabletOriginal Medicationhydrochlorothiazide 12.5 MG Oral Tablet *Reorder from [employer] for [employer] and Interaction Alerts* 020 Active aspirin 81 MG Delayed Release Oral Tablet ORAL aspirin 81 MG Delayed Releas e Oral TabletOriginal Medicationaspirin 81 MG Delayed Release Oral Tablet *Reorder from [employer] for eRx and Interaction Alerts* 020 Active Docusate Sodium 100 MG Oral Tablet ORAL docusate sodium 100 MG Oral TabletOriginal Medicationdocusate sodium 100 MG Oral Tablet *Reorder from [employer] for [employer] and Interaction Alerts* Active Metoprolol Tartrate 100 MG Oral Tablet ORAL metoprolol tartrate 100 MG O ral TabletOriginal Medicationmetoprolol tartrate 100 MG Oral Tablet *[facility]* 020 Active docosahexaenoic acid 120 MG / eicosapentaenoic acid 180 MG Oral Capsule ORAL docosahexaenoic acid 120 MG / eicosapentaenoic acid 180 MG Oral CapsuleOriginal Medicationdocosahexaenoic acid 120 MG / eicosapentaenoic acid 180 MG Oral Capsule *Reorder from [facility] for eRx and Interaction A Active ubidecarenone 400 MG Oral Capsule ORAL ubidecarenone 400 MG Oral CapsuleOriginal Medicationubidecarenone 400 MG Oral Capsule *Reorder from [facility] for eRx and Interaction Alerts* Active Social History Social History Additional Details Category Social Info Options Details Migrated Social History Migrated Social History History of tobacco use : , Smoking Status : Never smoked Plan Of Treatment No Information Insurance Providers Payer Name Payer Address Payer Phone Subscriber Number Group Number Insured Name Patient Relationship to Insured Coverage Start Date Coverage End Date [employer]. [address] [place] [id number] RAJ MERAZ Self - patient is the insured
--- OUTSIDE RECORDS SUMMARY | 2025-09-23 18:12 | XMS_ITS | Encounter Summary ---
Author Organization [facility] Healthcare Address [address] [place] [address] Care Team Providers Care Music Critic Name Role Phone Yovanny Latham MD Primary Care Provider Bandar Jarvis MD Unavailable Reason for Referral * Consultation (Routine) - Pending Review Specialty Diagnoses / Procedures Referred By Aaron mcclure Referred To Contact Cardiothoracic Surgery Diagnoses Nonrheumatic aortic valve insufficiency S/P AVR Presence of prosthetic heart valve Bandar Jarvis MD [address] [facility] [address] [place] [address] Phone: tel: fax: Cardiovascular and Thoracic Surgery [address] [facility] [address] [place] [address] Phone: tel: fax: Referral ID Status Reason Start Date Expiration Date Visits Requested Visits Authorized [id number] Pending Review Specialty Services Required 10/19/2026 1 1 Question Answer Please select the performing region: [facility]) [[id number]] Please select the performing department: [facility] [[id number]] # of visits: 1 Comments Please coordinate [facility]VS appointment w/ Dr. Jarvis appointment * MRI/CAT/PET Scan (Routine) - Pending Review Specialty Diagnoses / Procedures Referred By Aaron mcclure Referred To Contact Radiology Diagnoses Nonrheumatic aortic valve insufficiency S/P AVR Presence of prosthetic heart valve Procedures CT TAVR Bandar Jarvis MD [address] [facility] [address] [place] [address] Phone: tel: fax: [facility] [address] [place] [address] Referral ID Status Reason Start Date Expiration Date V isits Requested Visits Authorized [id number] Pending Review 09/19/2025 10/19/2026 1 1 Encounter Details Date Type Department Care Team (Late st Contact Info) Description 09/19/2025 Telephone [facility] Medical Group Cardiology [address] [facility] [address] [place] [address] Bandar Jarvis MD [address] [facility] [address] [place] [address] Social History Tobacco Use Types Packs/Day Years Used Date Smoking Tobacco: Never Smokeless Tobacco: Never Alcohol Use Standard Drinks/Week Comments No 0 (1 standard drink = 0.6 oz pur e alcohol) Comments No Sex and Gender Information Value Date Recorded Sex Assigned at Not on file 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 Raymond on 08/16/2019. Will start workup for TAVR per Dr. Stafford. Will coordinate CTVS appointment w/ Dr. Jarvis appointment. Orders placed 09.19.25 Mary documented in this encounter Plan of Treatment Scheduled Orders Name Type Priority Associated Diagnoses Orde r Schedule CT TAVR Imaging Schedule Routine , Read Routine (OP Routine) Nonrheumatic aortic valve insufficiency S/P AVR Presence of prosthetic heart valve Expected: 09/26/2025 (Approximate), Expires: 03/20/2027 Scheduled Referrals Name Type Priority Associated Diagnoses Order Schedule Ambulatory referral to Cardiothoracic Surgery Outpatient Referral Routine Nonrheumatic aortic valve insufficiency S/P AVR Presence of prosthetic heart valve Expected: 09/26/2025 (Approximate), Expires: 03/20/2027 documented as of this encounter Visit Diagnoses Diagnosis Nonrheumatic aortic valve insufficiency- Primary S/P AVR Presence of prosthetic heart valve documented in this encounter Care Teams Music Critic Relationship Specialty Start Date End Date Yovanny Latham MD [address] [place] [address] PCP - General Family Medicine 01/18/25 Bandar Jarvis MD [address] [place] [address] Referring Physician Cardiology 09/20/25 documented as of this encounter
--- OUTSIDE RECORDS SUMMARY | 2025-09-23 18:12 | XMS_ITS | Encounter Summary ---
Author Organization [facility] Healthcare Address [address] [place] [address] Care Team Providers Care Branch Coordinator Name Role Phone Janett Wharton MD Primary Care Provider Yovanny Latham MD Primary Care Provider Bandar Jarvis MD Unavailable Encounter Details Date Type Department Care Team (Late st Contact Info) Description 07/18/2019 Orders Only [facility] Health Information Management [address] [place] [address] Scanning, Provider Social History Tobacco Use Types Packs/Day Years Used Date Smoking Tobacco: Never Smokeless Tobacco: Never Alcohol Use Standard Drinks/Week Comments No 0 (1 standard drink = 0.6 oz pur e alcohol) Comments Unknown Sex and Gender Information Value Date Recorded Sex Assigned at Not on file 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 Gender Identity Not on file Sexual Orientation Not on file documented as of this encounter Plan of Treatment Not on file documented as of this encounter Procedures Procedure Name Priority Date/Time Associated Diagnosis Comments CARDIOLOGY DOCUMENT SCAN 07/18/2019 documented in this encounter Results * Cardiology Document Scan (07/18/2019) Anatomical Region Laterality Modality Other us Provider Scanning CV CARDIAC SERVICES PROCEDURES Final Result documented in this encounter Visit Diagnoses Not on filedocumented in this encounter Care Teams Branch Coordinator Relationship Specialty Start Date End Date Janett Wharton MD [address] [facility] [address] [place] [address] PCP - General 12/19/15 01/17/25 Yovanny Latham MD [address] [facility] [address] [place] [address] PCP - General Family Medicine 01/18/25 Bandar Jarvis MD [address] [facility] [address] [place] [address] Referring Physician Cardiology 09/20/25 documented as of this encounter
--- OUTSIDE RECORDS SUMMARY | 2025-09-23 18:12 | XMS_ITS | Clinical Summary ---
Author Organization [facility] [address] Address [address] [place] [address] Care Team Providers Care Compliance Technician Name Role Phone Yovanny Latham MD Primary Care Provider Bandar Jarvis MD Unavailable Allergies Active Allergy Reactions Criticality Noted Date [...] 1 tablet (75 mcg total) by mouth biogeographer before breakfast 30 tablet 2 9 Active [...] mg total) by mouth daily Active vit C,Q-Vb-offcs-ayla tein-zeaxan (PreserVision AREDS-2) 250-90-40-1 mg capsule Take by mouth Active losartan-hydroc hlorothiazide (HYZAAR) 100-25 mg per tablet Take 1 tablet by mouth daily 90 tablet 3 Active metoprolol tartrate (LOPRESSOR) 25 mg immediate release tabletIndicatio ns:Chronic diastolic (congestive) heart failure,DOHERTY (dyspnea on exertion) TAKE 1 TABLET BY MOUTH TWICE A DAY 180 tablet 1 5 Active Additional Information Patient taking differently: 50 mgoral 2 times daily, Reported on 09/07/2025 Active Problems Problem Noted Date Diagnosed Date Fall 04/14/2021 Tinnitus 08/08/2020 Sensorineural hearing loss (SNHL) of both ears 0 08/08/2020 Hypokalemia 11/09/2019 S/P AVR 10/03/2019 Aftercare following surgery of the circulatory s ystem 09/19/2019 Nonrheumatic aortic valve insufficiency 08/08/20 19 Overview (08/08/2019): Added automatically from request for surgery [id number] Essential hypertension 06/15/2019 Hyperlipidemia LDL goal <100 06/15/2019 Hypothyroidism 06/15/2019 Stage 3 chronic kidney disease 06/15/2019 Chronic diastolic (congestive) heart failure Pleuritic chest pain 06/15/2019 DOHERTY (dyspnea on exertion) 06/15/2019 Chronic fatigue syndrome 12/19/2015 Overview (02/25/2017): Chronic fatigue Aortic valve insufficiency 12/19/2015 Overview (02/25/2017): Nonrheumatic aortic valve insufficiency 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 Encounters Date Type Department Care Team Description 09/20/2025 Orders Only Cardiovascular and Thoracic Surgery [address] [facility] [address] [place] [address] Yamile Montemayor RN Nonrheumatic aortic valve stenosis (Primary Dx) 09/19/2025 Telephone [facility] Cardiology [address] [facility] [address] [place] [address] Bandar Jarvis MD 09/11/2025 Results Follow-Up [facility] Cardiology [address] [facility] [address], [place] [address] Jessica Parker MD Transthoracic Echo (TTE) Complete W Doppler/CF 09/07/2025 11:15 AM CDT Ancillary Procedure [facility] Cardiology [address] [facility] [address] [place] [address] Chronic diastolic (congestive) heart failure; S/P AVR; DOHERTY (dyspnea on exertion) 09/07/2025 9:45 AM CDT Office Visit [facility] Cardiology at [address] [place] [address] Jessica Parker MD Chronic diastolic (congestive) heart failure (Primary Dx); Essential hypertension; Hyperlipidemia LDL goal <100; S/P AVR; DOHERTY (dyspnea on exertion) from Last 3 [...] on file 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 Gender Identity Not on file Sexual Orientation Not on file Last Filed Vital Signs Vital Sign Reading Time Taken Comments Blood Pressure 124/66 09/07/2025 9:51 AM CDT Pulse 99 09/07/2025 9:51 AM CDT Temperature 36.9 C (98.4 F) 04/19/2022 5:48 PM CDT Respiratory Rate 18 09/19/2019 8:26 AM CDT Oxygen Saturation 98% 09/07/2025 9:51 AM CDT Inhaled Oxygen Concentration - - Weight 78.5 kg (173 lb) 09/07/2025 9:51 AM CDT Height 162.6 cm (5' 4) 09/07/2025 9:51 AM CDT Body Mass Index 29.7 09/07/2025 9:51 AM CDT Plan of Treatment Health Maintenance Due Date Last Done Comments Depression Screening 1945 Fall Risk Assessment 1945 Osteoporosis Screening-Bone Density Scan 1945 Hepatitis B Screening 1962 Zoster Vaccine (1 of 2) 1994 Well Visit 65+ 2009 Pneumococcal vaccine 65+ (2 of 2 - PCV) 10/08/2015 10/08/2014 Influenza Vaccine (#1) 2025 , 09/27/2019, 09/17/2018, Additional history exists DTaP/Tdap/Td Vaccine (2 - Td or Tdap) 01/17/2035 01/17/2025 Medical Devices Implanted Type Area Coal Gasification Technician Device Identifier Shelf Expiration Date Model / Serial / Lot Lo [employer]iences [id number] Jordan-Russell ds [place] Magna Ease 23mm Bioprosthesis - [id number] - [id number] Implanted:Qty: 1 on 08/16/2019 by Ivan Raymond MD at [facility] Prosthetic Valve N/A: Aortic Valve Lo [employer]esciences 05/03/2023 [id number] / [id number] / [id number] Procedures Procedure Name Priority Date/Time Associated Diagnosis Comments TRANSTHORACIC ECHO (TTE) COMPLETE W DOPPLER/CF WO CONTRAST Routine 09/07/2025 12:56 PM CDT Chronic diastolic (congestive) heart failure S/P AVR DOHERTY (dyspnea on exertion) from Last 3 Months Results * TRANSTHORACIC ECHO (TTE) COMPLETE W DOPPLER/CF WO CONTRAST (09/07/2025 12:56 PM CDT) Estimated EF 70-75 % CONS SCIMAGE EF Mod BP 73 % CONS SCIMAGE Anatomical Region Laterality Modality Ultrasound 09/07/2025 11:2 2 AM CDT Narrative 09/07/2025 1:11 PM CDT [facility] Medical Group Cardiology [address] [facility] [address] [id number] [address] [facility] [address], [place] [address] P:[phone] P:[phone] Echocardiographic Report Patient Name: KATHY MERAZ L : 1945 Study Date: 09/07/2025 11:22:03 AM Sex: F Dietitian Consultant: Libertad Lemons)(OK), [facility] Location: [place] Ref Provider: JESSICA PARKER Height(Cm): 163 BSA: 1.89 Weight(Kg): 78.5 Heart Rate: 90 BP: 124 / 66 Quality: Good Order Provider: JESSICA PARKER PROCEDURES: Echocardiographic Report: Transthoracic echocardiogram with complete 2D, M-Mode, and color Doppler examination. With Strain Analysis. INDICATIONS: I50.32 Chronic diastolic (congestive) heart failure, Z95.2 Presence of prosthetic heart valve, and R06.09 Other forms of dyspnea. MEASUREMENTS: 2D/MM Value Range Doppler Value Range EF Mod BP 73 % [ 54 - 74 ] CHINA Vmax 0.78 cm2 [ 2.00 - 4.00 ] Estimated EF 70-75 % AV Mean PG 37 mmHg LV GLS -14.07 % AV Peak Dwight 4.01 m/s [ 1.00 - 1.70 ] LVIDd 2D 4.47 cm [ 3.80 - 5.20 ] AV Peak PG 64 mmHg LVIDs 2D 2.66 cm [ 2.20 - 3.50 ] AV VTI 73.06 cm LVPWd 2D 0.93 cm [ 0.60 - 0.90 ] LVOT Diam 1.99 cm [ 1.70 - 2.10 ] IVSd 2D 1.05 cm [ 0.60 - 0.90 ] LVOT Peak Dwight 1.00 m/s [ 0.70 - 1.10 ] AoR Diam 2D 3.27 cm [ 2.70 - 3.30 ] LVOT VTI 21.60 cm LA Volume 37.74 ml [ 22.00 - 52.00 ] MV E Peak Dwihgt 0.61 m/s [ 0.60 - 1.30 ] LA Volume Index 20 cc/m2 [ 16 - 28 ] MV A Peak Dwight 0.99 m/s [ 1.00 - 1.20 ] RA Volume 30.84 ml MV Decel Time 232 msec [ 104 - 258 ] PV Peak Dwight 0.82 m/s [ 0.40 - 0.80 ] TR Peak Dwight 2.41 m/s [ 1.00 - 2.80 ] TR Peak PG 23 mmHg Lateral E` 0.06 m/s [ 0.10 - 0.15 ] Septal E` 0.05 m/s [ 0.08 - 0.15 ] E` 0.05 m/s E/E` 12 Tapse 1.96 cm [ 1.71 - 5.00 ] 2D/MM Value Range Doppler Value Range - FINDINGS: Interpretation Site: Exam was interpreted at [facility]. Left Ventricle: Normal left ventricular systolic function. No focal wall motion abnormalities. Normal left ventricular size. Mild concentric left ventricular hypertrophy. Impaired diastolic relaxation Grade I. Ejection fraction is measured at 73 %. Ejection Fraction is visually estimated to be 70-75 %. Global Longitudinal Strain is -14 %. GLS is abnormal. Right Ventricle: Normal right ventricular size. Normal right ventricular systolic function. Left Atrium: There is moderate enlargement of left atrium. Right Atrium: The right atrium is normal in size. Atrial Septum: Normal atrial septum. Mitral Valve: Normal appearance of the mitral valve. Mild mitral valve regurgitation. There is no hemodynamically significant mitral stenosis by Doppler. Aortic Valve: Severe aortic stenosis. Peak Velocity of 4.00 m/s. Mean gradient of 37.0 mmHg. Valve area of 0.78 cm2. Mild aortic valve regurgitation. Gradients abnormal for valve type and size. Abnormally appearing aortic valve bioprosthesis. Tricuspid Valve: Normal appearance of the tricuspid valve. Normal right ventricular systolic pressure. Estimated peak RVSP is 30-35 mmHg. Mild tricuspid regurgitation. Pulmonic Valve: Normal [...] Grade I. Ejection fraction is measured at 73 %. Ejection Fraction is visually estimated to be 70-75 %. Global Longitudinal Strain is -14 %. GLS is abnormal. There is moderate enlargement of left atrium. Mild mitral valve regurgitation. Severe aortic stenosis. Peak Velocity of 4.00 m/s. Mean gradient of 37.0 mmHg. Valve area of 0.78 cm2. Mild aortic valve regurgitation. Gradients abnormal for valve type and size. Abnormally appearing aortic valve bioprosthesis. Mild tricuspid regurgitation. Mild pulmonic regurgitation. Normal sinus rhythm. Electronically Signed By: Jessica Parker MD 09/07/2025 1:10:45 PM CDT Procedure Note Jessica Parker MD - 09/07/2025 [facility] Medical Group Cardiology [address] [facility] [address], [place] [address] [address] [facility] [address], [place] [address] P:[phone] P:[phone] Echocardiographic Report Patient Name: KATHY MERAZ L : 1945 Study Date: 09/07/2025 11:22:03 AM Sex: F Dietitian Consultant: Libertad Lemons)(OK), [facility] Location: [facility] Provider: JESSICA PARKER Height(Cm): 163 BSA: 1.89 Weight(Kg): 78.5 Heart Rate: 90 BP: 124 / 66 Quality: Good Order Provider: JESSICA PARKER PROCEDURES: Echocardiographic Report: Transthoracic echocardiogram with complete 2D, M-Mode, and color Dopplerexamination. With Strain Analysis. INDICATIONS: I50.32 Chronic diastolic (congestive) heart failure, Z95.2 Presence ofprosthetic heart valve, and R06.09 Other forms of dyspnea. MEASUREMENTS: 2D/MM Value Range Doppler ValueRange EF Mod BP 73 % [ 54 - 74 ] CHINA Vmax 0.78cm2 [ 2.00 - 4.00 ] Estimated EF 70-75 % AV Mean PG 37mmHg LV GLS -14.07 % AV Peak Dwight 4.01m/s [ 1.00 - 1.70 ] LVIDd 2D 4.47 cm [ 3.80 - 5.20 ] AV Peak PG 64mmHg LVIDs 2D 2.66 cm [ 2.20 - 3.50 ] AV VTI 73.06cm LVPWd 2D 0.93 cm [ 0.60 - 0.90 ] LVOT Diam 1.99cm [ 1.70 - 2.10 ] IVSd 2D 1.05 cm [ 0.60 - 0.90 ] LVOT Peak Dwight 1.00m/s [ 0.70 - 1.10 ] AoR Diam 2D 3.27 cm [ 2.70 - 3.30 ] LVOT VTI 21.60cm LA Volume 37.74 ml [ 22.00 - 52.00 ] MV E Peak Dwight 0.61m/s [ 0.60 - 1.30 ] LA Volume Index 20 cc/m2 [ 16 - 28 ] MV A Peak Dwight 0.99m/s [ 1.00 - 1.20 ] RA Volume 30.84 ml MV Decel Time 232msec [ 104 - 258 ] PV Peak Dwight 0.82 m/s [ 0.40 - 0.80 ] TR Peak Dwight 2.41 m/s [ 1.00 - 2.80 ] TR Peak PG 23 mmHg Lateral E` 0.06 m/s [ 0.10 - 0.15 ] Septal E` 0.05 m/s [ 0.08 - 0.15 ] E` 0.05 m/s E/E` 12 Tapse 1.96 cm [ 1.71 - 5.00 ] 2D/MM Value Range Doppler ValueRange - FINDINGS: Interpretation Site: Exam was interpreted at [facility]. Left Ventricle: Normal left ventricular systolic function. No focal wall motionabnormalities. Normal left ventricular size. Mild concentric left ventricular hypertrophy.Impaired diastolic relaxation Grade I. Ejection fraction is measured at 73 %. EjectionFraction is visually estimated to be 70-75 %. Global Longitudinal Strain is -14 %. GLS isabnormal. Right Ventricle: Normal right ventricular size. Normal right ventricular systolicfunction. Left Atrium: There is moderate enlargement of left atrium. Right Atrium: The right atrium is normal in size. Atrial Septum: Normal atrial septum. Mitral Valve: Normal appearance of the mitral valve. Mild mitral valve regurgitation.There is no hemodynamically significant mitral stenosis by Doppler. Aortic Valve: Severe aortic stenosis. Peak Velocity of 4.00 m/s. Mean gradient of 37.0mmHg. Valve area of 0.78 cm2. Mild aortic valve regurgitation. Gradients abnormal for valvetype and size. Abnormally appearing aortic valve bioprosthesis. Tricuspid Valve: Normal appearance of the tricuspid valve. Normal right ventricularsystolic pressure. Estimated peak RVSP is 30-35 mmHg. Mild tricuspid regurgitation. Pulmonic Valve: Normal [...] Grade I. Ejection fraction is measured at 73 %. EjectionFraction is visually estimated to be 70-75 %. Global Longitudinal Strain is -14 %. GLS isabnormal. There is moderate enlargement of left atrium. Mild mitral valve regurgitation. Severe aortic stenosis. Peak Velocity of 4.00 m/s. Mean gradient of 37.0mmHg. Valve area of 0.78 cm2. Mild aortic valve regurgitation. Gradients abnormal for valvetype and size. Abnormally appearing aortic valve bioprosthesis. Mild tricuspid regurgitation. Mild pulmonic regurgitation. Normal sinus rhythm. Electronically Signed By: Jessica Parker MD 09/07/2025 1:10:45 PM CDT Jessica Parker MD CV ECHO PROCEDURES Final Result from Last [address] [facility] Advance Directives For more information, please contact: [phone] * Full Code (Latest Code Status on File) Date Activated Date Inactivated Comments 08/16/2019 1:39 PM 08/23/2019 5:13 PM Care Teams Compliance Technician Relationship Specialty Start Date End Date Yovanny Latham MD [address] [place] [address] PCP - General Family Medicine 01/18/25 Bandar Jarvis MD [address] [place] [address] Referring Physician Cardiology 09/20/25
--- OUTSIDE RECORDS SUMMARY | 2025-09-23 18:12 | XMS_ITS | Encounter Summary ---
Author Organization [facility] Address [address] [place] [address] Care Team Providers Care Institute Director Name Role Phone Janett Wharton MD Primary Care Provider [phone] Encounter Details Date Type Department Care Team (Late st Contact Info) Description 12/10/2020 Prep for Procedure [facility] [place] [address] Agnes Huitron MD [address] [place] [address] [place] [address] Social History Tobacco Use Types Packs/Day [...] Sex Assigned at Female 01/17/2025 12:47 PM DATA MANAGEMENT ENGINEER Legal Sex Female 7:05 PM CDT Gender Identity Not on file Sexual Orientation Not on file COVID-19 Exposure Response Date Recorded In the last month, have you been in contact with someone who was confirmed or suspected to have Coronavirus / COVID-19? No / Unsure 12/13/2020 9:08 AM DATA MANAGEMENT ENGINEER documented as of this encounter Plan of Treatment Not on file documented as of this encounter Results * PRE-SURGICAL/PRE-PROCEDURE CORONAVIRUS (COVID 19) (12/10/2020 11:10 AM DATA MANAGEMENT ENGINEER) CORONAVIRUS SARS COV 2 PCR (RESP) NOT DETECTED NOT DETECTED 12/11/2020 9:31 PM DATA MANAGEMENT ENGINEER [facility] Comment: A Not Detected (negative) test result [...] providers and patients using the following websites: https://www.[employer]/home/Covid-19/HCP/QuestIVD/fact- sheet.html https://www.[employer]/home/Covid-19/Patients/ Quest[employer]/fact-sheet.html This test has been authorized by the FDA under an Emergency Use Authorization (EUA) for use by authorized laboratories. Due to the current public health emergency, [employer] [facility] is receiving a high volume of samples [...] about COVID-19 can be found at the [employer] website: www.[employer]/Covid19. Test performed at [facility] [address] [place] [address] Director: MILAN MONROY DO,MPH FIRST TEST YES 12/10/2020 9:04 AM DATA MANAGEMENT ENGINEER [facility] EMPLOYED IN HEALTHCARE NO 12/10/2020 9:04 AM DATA MANAGEMENT ENGINEER [facility] SYMPTOMATIC DEFINED BY CDC NO 12/10/2020 9:04 AM DATA MANAGEMENT ENGINEER [facility] DATE OF SYMPTOM ONSET NO 12/10/2020 12:30 PM DATA MANAGEMENT ENGINEER [facility] HOSPITALIZATION STATUS NO 12/10/2020 9:04 AM DATA MANAGEMENT ENGINEER [facility] PATIENT IN ICU NO 12/10/2020 9:04 AM DATA MANAGEMENT ENGINEER [facility] RESIDENT OF [facility] UNKNOWN 12/10/2020 9:04 AM DATA MANAGEMENT ENGINEER [facility] NO 12/10/2020 12:30 PM DATA MANAGEMENT ENGINEER [facility] PATIENT'S RACE WHITE OR 12/10/2020 9:04 AM DATA MANAGEMENT ENGINEER [facility] ETHNICITY NONHISPANIC 12/10/2020 9:04 AM DATA MANAGEMENT ENGINEER [facility] SOURCE (QST) NASOPHARYNGEAL SWAB 12/10/2020 9:04 AM DATA MANAGEMENT ENGINEER [facility] NASOPHARYNGEAL SWAB / Unknown 12/10/2020 11:10 AM DATA MANAGEMENT ENGINEER us Agnes Huitron MD MICROBIOLOGY - GENERAL ORDERABLE S Final Result [facility] [address] [place] [address], [place] [phone] [facility] [id number] [place] [address], documented in this encounter Visit Diagnoses Diagnosis History of colon polyps- Primary Personal history of colonic polyps documented in this encounter Additional Health Concerns Infection Onset Date Last Indicated Resolved Time COVID-19 Rule Out 12/10/2020 12/10/2020 12/11/2020 9:31 PM DATA MANAGEMENT ENGINEER documented as of this encounter Care Teams Institute Director Relationship Specialty Start Date End Date Janett Wharton MD [address] [facility] [address] [place] [address] PCP - General FAMILY PRACTICE 12/12/20 documented as of this encounter
--- OUTSIDE RECORDS SUMMARY | 2025-09-23 18:12 | XMS_ITS | Clinical Summary ---
Author Organization [facility] Address [facility] [place] [address] Care Team Providers Care Transaction Advisory Services Manager Name Role Phone Janett Wharton MD Primary Care Provider +1- [phone] Allergies Active Allergy Reactions Criticality Noted Date [...] Diagnosed Date SI (sacroiliac) joint dysfunction 02/14/2024 Immunizations Immunization Administration Dates Next Due Tdap [...] Sex Assigned at Female 01/17/2025 12:47 PM INSURANCE DEFENSE PARALEGAL Legal Sex Female 7:05 PM CDT Gender Identity Not on file Sexual Orientation Not on file Last Filed Vital Signs Vital Sign Reading Time Taken Comments Blood Pressure 170/87 01/17/2025 3:04 PM INSURANCE DEFENSE PARALEGAL Pulse 85 01/17/2025 3:04 PM INSURANCE DEFENSE PARALEGAL Temperature 36.6 C (97.8 F) 01/17/2025 12:44 PM INSURANCE DEFENSE PARALEGAL Respiratory Rate 19 01/17/2025 12:44 PM INSURANCE DEFENSE PARALEGAL Oxygen Saturation 97% 01/17/2025 3:04 PM INSURANCE DEFENSE PARALEGAL Inhaled Oxygen Concentration - - Weight 77.1 kg (170 lb) 01/17/2025 12:44 PM INSURANCE DEFENSE PARALEGAL Height 162.6 cm (5' 4) 01/17/2025 12:44 PM INSURANCE DEFENSE PARALEGAL Body Mass Index 29.18 01/17/2025 12:44 PM INSURANCE DEFENSE PARALEGAL Plan of Treatment Health Maintenance Due Date Last Done Comments Pneumococcal Vaccine: 50+ Years (1 of 1 - PCV) 1994 Annual Medicare Wellness Visit 2009 Dexa Scan (General) 2009 RSV Immunization or 60+ Years (1 - 1-dose 75+ series) 2019 COVID-19 Vaccine (2024-2 6 season) 2025 Influenza Adult (#1) 2025 09/10/2020 DTaP, Tdap and Td Vaccines ( 2 - Td or Tdap) 01/17/2035 01/17/2025 Zoster Vaccines Completed 11/11/2020, 09/10/2020 Hepatitis A Vaccines Aged Out No long er eligible based on patient's age to complete this topic Meningococcal B Vaccine Aged Out No l onger eligible based on patient's age to complete this topic Meningococcal Vaccine Aged Out No juan ramon wenceslao eligible based on patient's age to complete this topic RSV Immunizations Under 20 Months Aged Out No longer eligible b ased on patient's age to complete this topic Insurance ESSENCE Care Teams Transaction Advisory Services Manager Relationship Specialty Start Date End Date Janett Wharton MD [address] [facility] [address] [place] [address] PCP - General FAMILY PRACTICE 12/12/20
--- OUTSIDE RECORDS SUMMARY | 2025-09-23 18:12 | XMS_ITS | Encounter Summary ---
Author Organization [facility] Address [address] [place] [address] Care Team Providers Care Golf Course Laborer Name Role Phone Janett Wharton MD Primary Care Provider [phone]- [phone] Reason for Visit * Auth/Cert (Routine) Specialty Diagnoses / Procedures Referred By Contac t Referred To Contact Diagnoses SI (sacroiliac) joint dysfunction si Procedures INJECTION,SACROILIAC JOINT BLOCK SACROILIAC JOINT Carlene Roger MD [address] [facility] [address] [place] [address] Phone: tel: fax: Referral ID Status Reason Start Date Expiration Date Visits Re quested Visits Authorized [id number] 1 1 Encounter Details Date Type Department Care Team (Late st Contact Info) Description 06/05/2025 Hospital Encounter [facility] [place], [place] [id number] Carlene Roger MD [address] [facility] [address] [place] [address] [id number] Social History Tobacco Use Types Packs/Day Years [...] Sex Assigned at Female 01/17/2025 12:47 PM DIE ATTACHING MACHINE TENDER Legal Sex Female 7:05 PM CDT Gender Identity Not on file Sexual Orientation Not on file documented as of this encounter Functional Status * Calculated C-SSRS Risk Score (Lifetime/Recent) Answer Date of Assessment Author Status No Risk Indicated 01/17/2025 12:52 PM DIE ATTACHING MACHINE TENDER Sabiha Villalobos, RN Active * [place] Suicide Severity Rating Scale (Screener/Recent Self-Report) Question Answer Date of Assessment Author Status 1. Wish to be (Past 1 Month) No 01/17/2025 12:52 PM DIE ATTACHING MACHINE TENDER Meri Villalobos, RN Acti ve 2. Non-Specific Active Suicidal Thoughts (Past 1 Month) No 01/17/2025 12:52 PM DIE ATTACHING MACHINE TENDER Meri Villalobos, RN Acti ve 6. Suicidal Behavior (Lifetime) No 01/17/2025 12:52 PM DIE ATTACHING MACHINE TENDER Meri Villalobos, RN Acti ve documented as of this encounter Plan of Treatment Not on file documented as of this encounter Visit Diagnoses Diagnosis SI (sacroiliac) joint dysfunction- Primary Disorders of sacrum documented in this encounter Admitting Diagnoses Diagnosis SI (sacroiliac) joint dysfunction Disorders of sacrum documented in this encounter Care Teams Golf Course Laborer Relationship Specialty Start Date End Date Janett Wharton MD [address] [facility] [address] [place] [address] PCP - General FAMILY PRACTICE 12/12/20 documented as of this encounter
[2025-09-23 18:19] VITALS: BP 160/80; PULSE 94; RESP 18; TEMP 36.4; O2SAT 100
[2025-09-23 18:30] LABS: EDUAAPPEAR Cloudy; EDUABILI 1+ (Negative); EDUABLOOD 3+ (Negative); EDUACOLOR1 Yellow; EDUAGLUCOSE Negative (Negative); EDUAKETONE Trace (Negative); EDUALEUKO 1+ (Negative); EDUANITRATE Negative (Negative); EDUAPH 5.5; EDUAPROTEIN 2+ (Negative); EDUASPGRAVITY 1.030; EDUAUROBILI 0.2
--- NOTE | 2025-09-23 18:38 | ED.GENADULT ---
HPI - General Adult General Chief complaint: Urogenital-Female Stated complaint: UTI History of Present Illness HPI narrative: Kathy Wright is an 80 year old female who presents with complaints of urinary tract infection symptoms. She says that she started to have symptoms of urinary tract infection on September 18. She saw her primary doctor who started her on Macrobid she states that the Macrobid was irritating her stomach to she called the office and on September 20 she was started on Augmentin. She presents today complaining that she feels like her symptoms might be getting a little bit worse. After further investigation of her medication she has only been taking it once daily and not twice daily as prescribed. She denies belly pain she states she has chronic back pain due does not feeling different then normal Related Data Home Medications ?Medication ?Instructions ?Recorded ?Confirmed ?Last Taken ?Type Adult One Daily Multivitamin 1 caplet PO DAILY 09/22/19 09/23/25 Unknown History aspirin 81 mg tablet,delayed 81 mg PO DAILY 09/22/19 09/23/25 Unknown History release (Adult Low Dose Aspirin) calcium 600 mg (as 1 cap PO DAILY 09/22/19 09/23/25 Unknown History carbonate)-vitamin D3 5 mcg (200 unit) capsule (Calcium 600 + D(3)) coenzyme Q10 10 mg capsule 10 mg PO ONCE 09/25/19 09/23/25 Unknown History omega-3 fatty acids 1,000 mg 1,000 mg PO DAILY 07/02/20 09/23/25 Unknown History capsule (Fish Oil Concentrate) vitamins A,C,Q-mzoh-khbnnv 2,148 2 tablet PO BID 05/15/21 09/23/25 Unknown History mcg-113 mg-45 mg-17.4 mg tablet (PreserVision AREDS) zinc 50 mg tablet 50 mg PO DAILY 05/15/21 09/23/25 Unknown History vitamin B complex (B 1 tablet DAILY 10/05/22 09/10/25 Unknown History Complex-Vitamin B12 tablet) latanoprost 0.005 % eye drops 1 drp EACH EYE DAILY 09/10/25 09/23/25 Unknown History metoprolol tartrate 25 mg tablet mg 09/23/25 Unknown History Allergies Allergy/AdvReac Type Severity Reaction Status Date / Time nitrofurantoin AdvReac Intermediate Diarrhea Verified 09/23/25 18:30 Review of Systems Review of Systems: All systems reviewed & are unremarkable except as noted in HPI and below PMFSH Past Medical History Medical History Post-menopausal Screening for breast cancer Vaginal irritation Arthralgia Pulmonary nodule SOB (shortness of breath) Hypertensive heart disease with chronic diastolic congestive heart failure Sacrococcygeal disorders, not elsewhere classified Vaginal itching Atrophic vaginitis Mild valvular heart disease Bilateral sacroiliitis Abnormal colonoscopy 2020- tubular adenoma- repeat in 5 years Spinal stenosis of lumbar region Breast mass, left Breast pain, left Back muscle spasm Chronic diastolic (congestive) heart failure CKD (chronic kidney disease) stage 3, GFR 30-59 ml/min OAB (overactive bladder) Major depressive disorder, recurrent, moderate Mixed hyperlipidemia Hypothyroidism (acquired) Diarrhea Acute otitis media Tinnitus Acute sinusitis Trochanteric bursitis of both hips Hypokalemia Chronic anticoagulation Fatigue Anorexia Aortic valve regurgitation Status post aortic valve repair for aortic regurgitation August 16, 2019 at [facility]. Patient believe she may have had atrial fibrillation postoperatively for short period of time. States she is taking Coumadin through October ?to prevent clots.? GERD (gastroesophageal reflux disease) Osteoarthritis Benign colon polyp Hypothyroidism Hyperlipidemia Hypertension Depression with anxiety Elevated troponin I level Chest pain Surgical History Surgical History Hx of colonoscopy with polypectomy Hx of aortic valve replacement August 16, [address] Mojica at [facility]. S/P cataract surgery S/P excision of lipoma Intramuscular lipoma removed from the left upper extremity in November [address] Gaxiola. History of colostomy H/O cardiac catheterization July 18, [address] Jimenes showed normal coronary arteries, normal left ventricular systolic function and ejection fraction, and severe aortic regurgitation. H/O: hysterectomy For endometriosis. Family History Family History Sibling Congestive heart failure Father Prostate carcinoma Sibling FH: stomach cancer Sibling Congestive heart failure Mother , at age 95 of old age. No problems noted. Father , at age 72. Malignant neoplasm of prostate Father Family history of malignant neoplasm Mother Family history of heart disease in male family member before age 55 Hypertension Family history of arthritis Sibling Family history of heart disease in male family member before age 55 Other Diabetes mellitus Family history of cardiovascular disease Family history of tuberculosis Social History Social History Social History: Mrs. Wright is and lives in [place], [place]. 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 Her primary care provider is Dr. Janett Wharton. She denies alcohol, tobacco, and drug use. She designates her as her surrogate decision maker and she wishes to be a full code. Smoking status: Never smoker Second hand tobacco smoke exposure: No Alcohol intake: never Substance use: never Substance use type: does not use Do You Feel Safe in your Home?: Yes Lack of Transportation: No Lack of Food: Never True Current Housing: I Have Housing Concerned About Future Housing: No Difficulty Paying Gas/Electric Bills: No Difficulty Paying for Meds: No Currently Unemployed: No Education: High School Diploma/GED Difficulty w/ Childcare or Family Care: No Living arrangements: with family Occupation/Education: retired Gender identity (if verbalized by the patient): Female Sexual Orientation (if Verbalized by the Patient): Straight or Heterosexual Spiritual care concerns: No Exam Narrative: GENERAL: Well-appearing, well-nourished, and in no acute distress. HEAD: Normocephalic, atraumatic. EYES: PERRLA and EOMI. ENT: Nares clear, no rhinorrhea or epistaxis. Mucous membranes moist. Oropharynx without tonsillar hypertrophy exudate or other lesions. Bilateral TMs pearly minaya non bulging NECK: Supple. No adenopathy or masses. No carotid bruits or JVD CHEST: Clear to auscultation. No respiratory distress. No wheezes rales or rhonchi HEART: Regular rate and rhythm. No murmur heard. Normal peripheral pulses. EXTREMITIES: Normal range of motion. No edema. SKIN: Warm, dry, no rash. NEURO: No focal deficits. Alert and oriented x3. PSYCH: Normal mood and affect. Course Course Level of Care: Express Care Visit Vital Signs Vital signs: Vital Signs Temperature 36.4 C L 09/23/25 18:19 Pulse Rate 94 09/23/25 18:19 Respiratory Rate 18 09/23/25 18:19 Blood Pressure 160/80 H 09/23/25 18:19 Pulse Oximetry 100 09/23/25 18:19 Oxygen Delivery Room Air 09/23/25 18:19 Temperature 36.4 C L 09/23/25 18:19 Pulse Rate 94 09/23/25 18:19 Respiratory Rate 18 09/23/25 18:19 Blood Pressure 160/80 H 09/23/25 18:19 Pulse Oximetry 100 09/23/25 18:19 Oxygen Delivery Room Air 09/23/25 18:19 Medical Decision Making MDM Narrative Medical decision making narrative: 80 year-old patient presenting with urgency, dysuria, frequency and urinary symptoms consistent with UTI. Urinalysis is obtained and positive for signs of infection. Urine culture sent. Patient was on Macrobid on and then switched to Augmentin on the . However she was only taking it once a day a not twice a day for. I do not access to her urine culture that hoping her PCP office urine culture when they did send the Augmentin, and hopefully it was noted that she is susceptible to the Augmentin but since she was not taking it as prescribed could be why she still having symptoms. She took her 2nd dose fall she has been here and I will send her another prescription to continue what she has last for another 5 days which will give her 10 days of full treatment of the Augmentin b.i.d.. We are also sending urine culture to ensure she is susceptible to the Augmentin that was previously started. She denies any belly pain patient looks well. Patient is comfortable with this plan denies any further at this time. I encouraged patient to go to the emergency department if she feels that she is getting worse, has confusion, pain, for feels like she is not getting any better after taking the antibiotics. She is agreeable to this plan denies having any further questions. Procedures: Pulse oximetry interpretation - not hypoxic. Review of medical records. DISPOSITION: Discharged home in stable condition. IMPRESSION: 1. Acute uncomplicated cystitis. Medical Records Medical records reviewed: Yes I reviewed the external patient's medical records. Vital Signs Vital Signs: Vital Signs Temperature 36.4 C L 09/23/25 18:19 Pulse Rate 94 09/23/25 18:19 Respiratory Rate 18 09/23/25 18:19 Blood Pressure 160/80 H 09/23/25 18:19 Pulse Oximetry 100 09/23/25 18:19 Oxygen Delivery Room Air 09/23/25 18:19 Temperature 36.4 C L 09/23/25 18:19 Pulse Rate 94 09/23/25 18:19 Respiratory Rate 18 09/23/25 18:19 Blood Pressure 160/80 H 09/23/25 18:19 Pulse Oximetry 100 09/23/25 18:19 Oxygen Delivery Room Air 09/23/25 18:19 Vitals reviewed Lab Data Lab results reviewed: Yes I reviewed the patient's lab results. Labs: Lab Results 09/23/25 Range/Units 18:27 POC Urine Color Yellow POC Urine Clarity Cloudy POC Urine pH 5.5 POC Ur Specif [place] 1.030 POC Urine Protein 2+ (Negative) POC Ur Glucose (UA) Negative (Negative) POC Urine Ketones Trace (Negative) POC Urine Blood 3+ (Negative) POC Urine Nitrite Negative (Negative) POC Urine Bilirubin 1+ (Negative) POC Urine Urobilinogen 0.2 POC U Leukocyte Esteras 1+ (Negative) Discharge Plan Discharge Clinical Impression: Urinary tract infection Qualifiers: Urinary tract infection type: acute cystitis Hematuria presence: with hematuria Qualified Code(s): N30.01 - Acute cystitis with hematuria Patient Disposition: Home Condition: Stable Instructions: Antibiotic Form Additional Instructions: continue the antibiotic 1 in the morning 1 at night for the next 10 days. Please make sure you pushing plenty of hydration drinking lots of water to stay hydrated. Please call your primary care doctors office tomorrow to update them on this additional change of care as they may have your urine culture available to review to ensure this a medication will help. If you develops any new or worsening symptoms such as severe pain, confusion feel like your not ggetting better, fevers or vomiting then please proceed to the emergency department. Patient Language: Jordanian Prescriptions: New amoxicillin-pot clavulanate 875-125 mg tablet 1 tablet PO Q12H Qty: 10 0RF No Action metoprolol tartrate 25 mg tablet vitamin B complex [B Complex-Vitamin B12] Tablet 1 tablet DAILY omega-3 fatty acids [Fish Oil Concentrate] 1,000 mg capsule 1,000 mg PO DAILY zinc 50 mg tablet 50 mg PO DAILY PreserVision AREDS 7,160 unit- 113 mg-100 unit tablet 2 tablet PO BID Rx Instructions: administer with AM and PM meals triamcinolone acetonide 0.1 % cream 1 applic topical BID Qty: 30 0RF latanoprost 0.005 % drops 1 drp EACH EYE DAILY oxybutynin chloride 5 mg tablet 5 mg PO QHS Qty: 30 1RF Adult One Daily Multivitamin 1 caplet PO DAILY aspirin [Adult Low Dose Aspirin] 81 mg Tablet,Delayed Release (Dr/Ec) 81 mg PO DAILY calcium carbonate-vitamin D3 [Calcium 600 + D(3)] 600 mg calcium- 200 unit Capsule 1 cap PO DAILY coenzyme Q10 10 mg Capsule 10 mg PO ONCE metoprolol tartrate 50 mg tablet See Rx Instructions .ROUTE .COMPLEX Qty: 360 0RF Dose Instruction: TAKE 2 TABLETS BY MOUTH EVERY 12 HOURS Rx Instructions: TAKE 2 TABLETS BY MOUTH EVERY 12 HOURS atorvastatin 40 mg tablet See Rx Instructions .ROUTE .COMPLEX Qty: 90 3RF Dose Instruction: TAKE 1 TABLET BY MOUTH EVERY DAY Rx Instructions: TAKE 1 TABLET BY MOUTH EVERY DAY losartan-hydrochlorothiazide 100-25 mg tablet See Rx Instructions .ROUTE .COMPLEX Qty: 90 2RF Dose Instruction: TAKE 1 TABLET BY MOUTH EVERY DAY Rx Instructions: TAKE 1 TABLET BY MOUTH EVERY DAY citalopram 40 mg tablet 40 mg PO DAILY Qty: 90 1RF levothyroxine 75 mcg tablet See Rx Instructions .ROUTE .COMPLEX Qty: 90 1RF Dose Instruction: TAKE 1 TABLET BY MOUTH DAILY Rx Instructions: TAKE 1 TABLET BY MOUTH DAILY amoxicillin-pot clavulanate 500-125 mg tablet 1 tablet PO Q12H 6 Days Qty: 12 0RF Follow-up/Referrals: Yovanny Latham MD [Primary Care Provider, Family Practice] - 2 Days Time of Disposition: 18:48
== END 2025-09-23 18:52 | disposition home or self-care (01) ==
PROVIDERS: Emergency Provider Nurse Practitioner Family; PCP Family Medicine
DX: N30.01 Acute cystitis with hematuria (principal); I13.0 Hypertensive heart and chronic kidney disease with heart failure and stage 1 through stage 4 chronic kidney disease, or unspecified chronic kidney disease; N18.30 Chronic kidney disease, stage 3 unspecified; I50.32 Chronic diastolic (congestive) heart failure; E03.9 Hypothyroidism, unspecified; E78.2 Mixed hyperlipidemia; N32.81 Overactive bladder; M48.061 Spinal stenosis, lumbar region without neurogenic claudication; F33.9 Major depressive disorder, recurrent, unspecified; F41.8 Other specified anxiety disorders; Z95.2 Presence of prosthetic heart valve
CPT/HCPCS: 81003; 87086; 99213; G0463

== ENCOUNTER 2025-11-18 11:47 | Emergency (ER) | payer OTHER, SELFPAY ==
--- OUTSIDE RECORDS SUMMARY | 2025-11-18 11:50 | XMS_ITS | Clinical Summary ---
Author Organization [facility] Address [facility] [place] [address] Care Team Providers Care Ben Day Artist Name Role Phone Janett Wharton MD Primary Care Provider +1- [phone] Allergies Active Allergy Reactions Criticality Noted Date [...] Sex Assigned at Female 01/17/2025 12:47 PM INNOVATION MANAGER Legal Sex Female 7:05 PM CDT Gender Identity Not on file Sexual Orientation Not on file Last Filed Vital Signs Vital Sign Reading Time Taken Comments Blood Pressure 170/87 01/17/2025 3:04 PM INNOVATION MANAGER Pulse 85 01/17/2025 3:04 PM INNOVATION MANAGER Temperature 36.6 C (97.8 F) 01/17/2025 12:44 PM INNOVATION MANAGER Respiratory Rate 19 01/17/2025 12:44 PM INNOVATION MANAGER Oxygen Saturation 97% 01/17/2025 3:04 PM INNOVATION MANAGER Inhaled Oxygen Concentration - - Weight 77.1 kg (170 lb) 01/17/2025 12:44 PM INNOVATION MANAGER Height 162.6 cm (5' 4) 01/17/2025 12:44 PM INNOVATION MANAGER Body Mass Index 29.18 01/17/2025 12:44 PM INNOVATION MANAGER Plan of Treatment Health Maintenance Due Date [...] complete this topic Insurance ESSENCE Care Teams Ben Day Artist Relationship Specialty Start Date End Date Janett Wharton MD [address] [facility] [address] [place] [address] PCP - General FAMILY PRACTICE 12/12/20
--- OUTSIDE RECORDS SUMMARY | 2025-11-18 11:50 | XMS_ITS | Encounter Summary ---
Author Organization [facility] Address [address] [place] [address] Care Team Providers Care Cardio Tech Name Role Phone Janett Wharton MD Primary Care Provider +1- [phone] Reason for Visit * Auth/Cert (Routine) Specialty Diagnoses / Procedures Referred By Contac t Referred To Contact Diagnoses SI (sacroiliac) joint dysfunction si Procedures INJECTION,SACROILIAC JOINT BLOCK SACROILIAC JOINT Carlene Roger MD [address] [facility] [address] [place] [address] Phone: tel: fax: Referral ID Status Reason Start Date Expiration Date Visits Re quested Visits Authorized [id number] 1 1 Encounter Details Date Type Department Care Team (Late st Contact Info) Description 06/05/2025 Hospital Encounter [facility] [place], [place] [id number] Carlene Roger MD [address] [facility] [address] [place] [phone] Social History Tobacco Use Types Packs/Day Years [...] Sex Assigned at Female 01/17/2025 12:47 PM GAMING HOST Legal Sex Female 7:05 PM CDT Gender Identity Not on file Sexual Orientation Not on file documented as of this encounter Plan of Treatment Not on file documented as of this encounter Visit Diagnoses Diagnosis SI (sacroiliac) joint dysfunction- Primary Disorders of sacrum documented in this encounter Admitting Diagnoses Diagnosis SI (sacroiliac) joint dysfunction Disorders of sacrum documented in this encounter Care Teams Cardio Tech Relationship Specialty Start Date End Date Janett Wharton MD [address] [facility] [address] [facility] [address] [place] [address] PCP - General FAMILY PRACTICE 12/12/20 documented as of this encounter
--- OUTSIDE RECORDS SUMMARY | 2025-11-18 11:50 | XMS_ITS | Encounter Summary ---
Author Organization [facility] Address [address] [place] [address] Care Team Providers Care Hims Clerk Name Role Phone Janett Wharton MD Primary Care Provider Yovanny Latham MD Primary Care Provider Bandar Jarvis MD Unavailable Meri Duagn NP Unavailable [phone] Encounter Details Date Type Department Care Team (Late st Contact Info) Description 07/18/2019 Orders Only [facility] Health Information Management [address] [place] [address] Scanning, Provider Social History Tobacco Use Types Packs/Day Years Used Date Smoking Tobacco: Never Smokeless Tobacco: Never Alcohol Use Standard Drinks/Week Comments No 0 (1 standard drink = 0.6 oz pur e alcohol) Comments Unknown Sex and Gender Information Value Date Recorded Sex Assigned at Not on file 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 Gender Identity Not on file Sexual Orientation [...] on filedocumented in this encounter Care Teams Hims Clerk Relationship Specialty Start Date End Date Janett Wharton MD [address] [place] [address] PCP - General 12/19/15 01/17/25 Yovanny Latham MD [address] [place] [address] PCP - General Family Medicine 01/18/25 Bandar Jarvis MD [address] [place] [address] Referring Physician Cardiology 09/20/25 Meri Dugan NP [address] [place] [address] Nurse Practitioner Cardiothoracic Surgery 10/31/25 documented as of this encounter
--- OUTSIDE RECORDS SUMMARY | 2025-11-18 11:50 | XMS_ITS | Patient Health Record ---
Author Organization [facility] Address [address] [place], [place] [id number] Care Team Providers Care Line Cleaner Name Role Phone VALENCIA PAYNE Unavailable [phone] Keli Whartonia Unavailable Unavailable Reason For Referral No Information Medications Medication SIG (Take, Route, Frequency, Duration) Notes Start Date End Date Status citalopram 10 MG Oral Tablet ORAL citalopram 10 MG Oral TabletOriginal Medicationcitalopram 10 MG Oral Tablet *Reorder from [employer] for eRx and Interaction Alerts* Active atorvastatin 10 MG Oral Tablet ORAL atorvastatin 10 MG Oral TabletOriginal Medicationatorvastatin 10 MG Oral Tablet *Reorder from [employer] for eRx and Interaction Alerts* Active calcium carbonate 1250 MG Oral Tablet ORAL calcium carbonate 1250 MG Or al TabletOriginal Medicationcalcium carbonate 1250 MG Oral Tablet *Reorder from [employer] for eRx and Interaction Alerts* 020 Active hydroCHLOROthiazide 12.5 MG Oral Tablet ORAL hydrochlorothiazide 12.5 MG Oral TabletOriginal Medicationhydrochlorothiazide 12.5 MG Oral Tablet *Reorder from [employer] for eRx and Interaction Alerts* 020 Active aspirin 81 MG Delayed Release Oral Tablet ORAL aspirin 81 MG Delayed Releas e Oral TabletOriginal Medicationaspirin 81 MG Delayed Release Oral Tablet *Reorder from [employer] for eRx and Interaction Alerts* 020 Active Docusate Sodium 100 MG Oral Tablet ORAL docusate sodium 100 MG Oral TabletOriginal Medicationdocusate sodium 100 MG Oral Tablet *Reorder from [employer] for eRx and Interaction Alerts* Active Metoprolol Tartrate 100 MG Oral Tablet ORAL metoprolol tartrate 100 MG O ral TabletOriginal Medicationmetoprolol tartrate 100 MG Oral Tablet *[facility] and Interaction Alerts* 020 Active docosahexaenoic acid 120 MG / eicosapentaenoic acid 180 MG Oral Capsule ORAL docosahexaenoic acid 120 MG / eicosapentaenoic acid 180 MG Oral CapsuleOriginal Medicationdocosahexaenoic acid 120 MG / eicosapentaenoic acid 180 MG Oral Capsule *Reorder from [facility] for eRx and Interaction A Active ubidecarenone 400 MG Oral Capsule ORAL ubidecarenone 400 MG Oral CapsuleOriginal Medicationubidecarenone 400 MG Oral Capsule *Reorder from [facility] e[employer] and Interaction Alerts* Active Social History Social History Additional Details Category Social Info Options Details Migrated Social History Migrated Social History History of tobacco use : , Smoking Status : Never smoked Plan Of Treatment No Information Insurance Providers Payer Name Payer Address Payer Phone Subscriber Number Group Number Insured Name Patient Relationship to Insured Coverage Start Date Coverage End Date [employer]. [address] [place] [id number] RAJ MERAZ Self - patient is the insured
--- OUTSIDE RECORDS SUMMARY | 2025-11-18 11:50 | XMS_ITS | Encounter Summary ---
Author Organization [facility] Address [address] [place] [address] Care Team Providers Care Shoe Repairer Name Role Phone Janett Wharton MD Primary Care Provider [phone] Encounter Details Date Type Department Care Team (Late st Contact Info) Description 12/10/2020 Prep for Procedure [facility] [place] [address] Agnes Huitron MD [address] [place] [address] [place] [id number] Social History Tobacco Use Types Packs/Day [...] Sex Assigned at Female 01/17/2025 12:47 PM EMBROIDERER Legal Sex Female 7:05 PM CDT Gender Identity Not on file Sexual Orientation Not on file COVID-19 Exposure Response Date Recorded In the last month, have you been in contact with someone who was confirmed or suspected to have Coronavirus / COVID-19? No / Unsure 12/13/2020 9:08 AM EMBROIDERER documented as of this encounter Plan of Treatment Not on file documented as of this encounter Results * PRE-SURGICAL/PRE-PROCEDURE CORONAVIRUS (COVID 19) (12/10/2020 11:10 AM EMBROIDERER) CORONAVIRUS SARS COV 2 PCR (RESP) NOT DETECTED NOT DETECTED 12/11/2020 9:31 PM EMBROIDERER [facility] Comment: A Not Detected (negative) test result [...] providers and patients using the following websites: https://www.[employer].Bilna/home/Covid-19/HCP/[facility]/fact- sheet.html https://www.[employer].Bilna/home/Covid-19/Patients/ Quest[employer]/fact-sheet.html This test has been authorized by the FDA under an Emergency Use Authorization (EUA) for use by authorized laboratories. Due to the current public health emergency, [facility] is receiving a high volume of samples [...] about COVID-19 can be found at the [facility] website: www.[employer].Bilna/Covid19. [facility] [address] [place] [address] Director: MILAN MONROY DO,MPH FIRST TEST YES 12/10/2020 9:04 AM EMBROIDERER [facility] EMPLOYED IN HEALTHCARE NO 12/10/2020 9:04 AM EMBROIDERER [facility] SYMPTOMATIC DEFINED BY CDC NO 12/10/2020 9:04 AM EMBROIDERER [facility] DATE OF SYMPTOM ONSET NO 12/10/2020 12:30 PM EMBROIDERER [facility] HOSPITALIZATION STATUS NO 12/10/2020 9:04 AM EMBROIDERER [facility] PATIENT IN ICU NO 12/10/2020 9:04 AM EMBROIDERER [facility] RESIDENT OF [facility] UNKNOWN 12/10/2020 9:04 AM EMBROIDERER [facility] NO 12/10/2020 12:30 PM EMBROIDERER [facility] PATIENT'S RACE WHITE OR 12/10/2020 9:04 AM EMBROIDERER [facility] ETHNICITY NONHISPANIC 12/10/2020 9:04 AM EMBROIDERER [facility] SOURCE (QST) NASOPHARYNGEAL SWAB 12/10/2020 9:04 AM EMBROIDERER [facility] NASOPHARYNGEAL SWAB / Unknown 12/10/2020 11:10 AM EMBROIDERER us Agnes Huitron MD MICROBIOLOGY - GENERAL ORDERABLE S Final Result [facility] [address] [place] [address], [place] [phone] [facility] [id number] [place] [id number], documented in this encounter Visit Diagnoses Diagnosis History of colon polyps- Primary Personal history of colonic polyps documented in this encounter Additional Health Concerns Infection Onset Date Last Indicated Resolved Time COVID-19 Rule Out 12/10/2020 12/10/2020 12/11/2020 9:31 PM EMBROIDERER documented as of this encounter Care Teams Shoe Repairer Relationship Specialty Start Date End Date Janett Wharton MD [address] [place] [address] PCP - General FAMILY PRACTICE 12/12/20 documented as of this encounter
--- OUTSIDE RECORDS SUMMARY | 2025-11-18 11:50 | XMS_ITS | Clinical Summary ---
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 mL/min/1.73m2 Kidney Failure < 15 mL/min/1.73m2 *Relative to young adult level Estimated glomerular filtration rate is determined by the 2020 CKD-EPI equation recommended by the National Kidney Foundation (A Unifying Approach to GFR Estimation: Recommendations of the NKF-ASK Task Force on Reassessing the Inclusion of Race in Diagnosing Kidney Disease, JASN 202). The CKD-EPI equation should not be used for patients with unstable renal function and has not been validated in children and those over 70. Current interpretive data was last reviewed 2021. Blood 10/30/2025 1:07 AM CREDENTIALS SPECIALIST 10/30/2025 1:12 AM CREDENTIALS SPECIALIST Lydia GARCIA LAB BLOOD ORDERABLES Fin al Result [facility] [address] Department [place] [address] * (ABNORMAL) Differential, auto (10/30/2025 1:07 AM CREDENTIALS SPECIALIST) Neutrophil abs 8.89(H) 1.50 - 6.50 K/cumm Imm gran abs 0.06 0.00 - 0.10 K/cumm [facility] Lymphocyte abs 0.75(L) 0.80 - 3.30 K/cumm [facility] Monocyte abs 0.80 0.20 - 0.80 K/cumm [facility] Eosinophil abs 0.01 0.00 - 0.50 K/cumm [facility] Basophil abs 0.02 0.00 - 0.10 K/cumm [facility] Neutrophil pct 84.4 % [facility] Comment: Interpretive Data Percent cell count reference ranges are not reported, since discordance with absolute values may lead to misinterpretation of CBC data. Current Interpretive Data was last revised on 2018. Imm gran pct 0.6 % [facility] Comment: Interpretive Data Percent cell count reference ranges are not reported, since discordance with absolute values may lead to misinterpretation of CBC data. Current Interpretive Data was last revised on 2018. Lymphocyte pct 7.1 % [facility] Comment: Interpretive Data Percent cell count reference ranges are not reported, since discordance with absolute values may lead to misinterpretation of CBC data. Current Interpretive Data was last revised on 2018. Monocyte pct 7.6 % [facility] Comment: Interpretive Data Percent cell count reference ranges are not reported, since discordance with absolute values may lead to misinterpretation of CBC data. Current Interpretive Data was last revised on 2018. Eosinophil pct 0.1 % [facility] Comment: Interpretive Data Percent cell count reference ranges are not reported, since discordance with absolute values may lead to misinterpretation of CBC data. Current Interpretive Data was last revised on 2018. Basophil pct 0.2 % [facility] Comment: Interpretive Data Percent cell count reference ranges are not reported, since discordance with absolute values may lead to misinterpretation of CBC data. Current Interpretive Data was last revised on 2018. Blood 10/30/2025 1:07 AM CREDENTIALS SPECIALIST 10/30/2025 1:13 AM CREDENTIALS SPECIALIST us Lydia GARCIA LAB BLOOD ORDERABLES Fin al Result [facility] [address] Department [place] [address] * (ABNORMAL) CBC with auto differential (10/30/2025 1:07 AM CREDENTIALS SPECIALIST) WBC 10.53(H) 3.80 - 9.90 K/cumm Hgb 11.6(L) 11.9 - 15.5 g/dL [facility] Hct 36.8 35.6 - 45.5 % [facility] Plt 135(L) 150 - 400 K/cumm [facility] MPV 9.4 9.1 - 12.3 fL [facility] RBC 3.93 3.90 - 5.20 M/cumm [facility] MCV 93.6 81.3 - 96.4 fL [facility] MCH 29.5 27.1 - 33.3 pg [facility] MCHC 31.5(L) 32.3 - 35.7 g/dL [facility] RDW CV 13.1 11.1 - 14.9 % [facility] RDW SD 45.0 35.7 - 48.1 fL [facility] NRBC abs 0.00 0.00 - 0.01 K/cumm [facility] Blood 10/30/2025 1:07 AM CREDENTIALS SPECIALIST 10/30/2025 1:13 AM CREDENTIALS SPECIALIST Lydiashawn Deng MD LAB BLOOD ORDERABLES Fin al Result Performing Organization Address City/[facility]/ZIP Co de Phone Number [facility] [address] [facility] [employer] [place], [place] [id number] * Magnesium (10/30/2025 1:07 AM CREDENTIALS SPECIALIST) [facility] Magnesium 2.0 1.4 - 2.5 mg/dL Blood 10/30/2025 1:07 AM CREDENTIALS SPECIALIST 10/30/2025 1:12 AM CREDENTIALS SPECIALIST [facility] LAB BLOOD ORDERABLES Fin al Result Performing Organization Address [facility] de Phone Number [facility] [address] [employer] [place] [address] * (ABNORMAL) Basic metabolic panel (10/30/2025 1:07 AM CREDENTIALS SPECIALIST) [facility] Sodium 134(L) 135 - 145 mmol/L Potassium, pl 4.6 3.3 - 4.9 mmol/L [facility] Chloride 98 97 - 110 mmol/L [facility] CO2 29 22 - 32 mmol/L [facility] Anion gap 7 2 - 15 mmol/L [facility] BUN 18 6 - 25 mg/dL [facility] Creatinine 0.91 0.60 - 1.10 mg/dL [facility] Glucose 125 70 - 199 mg/dL [facility] Comment: Interpretive Data Fasting glucose >/= 126 mg/dl is diagnostic for diabetes. Fasting is defined as no caloric intake for at least 8 hours. Fasting glucose between 100 mg/dl to 125 mg/dl is diagnostic of prediabetes. In a patient with classic symptoms of hyperglycemia or hyperglycemic crisis, a random glucose >/= 200 mg/dl is diagnostic for diabetes. In the absence of unequivocal hyperglycemia, results should be confirmed by repeat testing. The classification and Diagnosis of Diabetes Diabetes Care 2021; 46: S19-S40. Current interpretive data was last revised 2022. Calcium 8.7 8.5 - 10.3 mg/dL [facility] Blood 10/30/2025 1:07 AM CREDENTIALS SPECIALIST 10/30/2025 1:12 AM CREDENTIALS SPECIALIST Lydia GARCIA LAB BLOOD ORDERABLES Fin al Result Performing Organization Address [facility]/ZIP Co de Phone Number [facility] [address] Department [place] [address] * ECG 12 lead (10/29/2025 6:44 PM CREDENTIALS SPECIALIST) 10/29/2025 6:44 PM CREDENTIALS SPECIALIST Narrative [facility] - 10/29/2025 9:39 PM CREDENTIALS SPECIALIST Vent Rate: 82 bpm RR Interval: 727 msec DE Interval: 150 msec QRS Duration: 129 msec QT Interval: 425 msec QTC Interval: 464 msec P-R-T Browns: 14 - -64 - 84 degrees IMPRESSION: SINUS RHYTHM LEFT AXIS DEVIATION LEFT BUNDLE BRANCH BLOCK ABNORMAL ECG Electronically Signed By: Miles Melendez MD Lydia GARCIA ECG ORDERABLES Final Re sult Performing Organization Address [facility]/ZIP Co de Phone Number [facility] * TRANSTHORACIC ECHO (TTE) LIMITED/FOLLOW UP W LTD DOPPLER/CF WO CONTRAST (10/29/2025 2:15 PM CREDENTIALS SPECIALIST) Estimated EF 65-70 % CONS SCIMAGE Anatomical Region Laterality Modality Ultrasound 10/29/2025 11:1 7 AM CREDENTIALS SPECIALIST Narrative 11/02/2025 12:36 PM CREDENTIALS SPECIALIST [facility] [address] [place] [id number] LIMITED ECHOCARDIOGRAM Patient Name: KATHY MERAZ L : 1945 (80y 7m) Sex: F Study Date: 10/29/2025 11:17:01 AM Ht(Inch): 64 Wt(Lb): 173.06 BSA: 1.88 Vascular Technologist Sonographer: Location: [id number] Order Provider: BANDAR WYNNE BMI: 29.7 BP: 130/74 Ref Provider: BANDAR WYNNE - PROCEDURES: Echocardiographic Report: Limited TTE. INDICATIONS: MEASUREMENTS: 2D/MM Value Range Doppler Value Range Estimated EF 65-70 % AV Peak Dwight 3.9 m/s [ 1.0 - 1.7 ] AV Peak PG 59.3 mmHg AV Mean PG 35.0 mmHg AV VTI 83.1 cm CHINA VTI 0.8 cm2 LVOT Peak Dwight 0.93 m/s [ 0.70 - 1.10 ] LVOT Diam 2.0 cm LVOT Peak PG 3.5 mmHg LVOT VTI 20.7 cm 2D/MM Value Range Doppler Value Range - FINDINGS: Study Quality: The study was technically adequate. BP: Blood pressure: 130/74 mmHg. Left Ventricle: Normal global and regional left ventricular systolic function. Ejection Fraction is estimated to be 65-70. Normal left ventricular cavity size. Right Ventricle: Normal right ventricular systolic function. Normal right ventricular size. Left Atrium: The left atrium is normal in size. Right Atrium: The right atrium is normal in size. Atrial Septum: Normal appearing atrial septum. Mitral Valve: Normal appearance of the mitral valve leaflets. Moderate mitral valve regurgitation. Aortic Valve: Mild perivalvular aortic valve regurgitation. Bioprosthetic AV with an elevated gradient. Tricuspid Valve: Normal appearance of the tricuspid leaflets. Mild tricuspid regurgitation. Pulmonic Valve: The pulmonic valve is not seen. Pericardium: Normal appearing pericardial thickness. No significant pericardial effusion. Aortic Root and Aorta: The sinuses of Valsalva are normal. Normal caliber aortic root. Normal appearing ascending aorta. Normal appearing descending aorta. Aortic Arch: Normal caliber aortic arch. IVC: Normal appearance of the inferior vena cava. CONCLUSIONS: 1. Normal global and regional left ventricular systolic function. Ejection Fraction is estimated to be 65-70. Normal left ventricular cavity size. 2. Normal appearance of the mitral valve leaflets. Moderate mitral valve regurgitation. 3. Mild perivalvular aortic valve regurgitation. Bioprosthetic AV with an elevated gradient. Electronically Signed By: Miles Melendez MD 11/02/2025 12:36:11 PM CREDENTIALS SPECIALIST Procedure Note Miles Melendez MD - 11/02/[address] [address] LIMITED ECHOCARDIOGRAM Patient Name: KATHY MERAZ L : 1945 (80y 7m) Sex: F Study Date: 10/29/2025 11:17:01 AM Ht(Inch): 64 Wt(Lb): 173.06 BSA: 1.88 Vascular Technologist Sonographer: Location: [facility] Order Provider: BANDAR WYNNE BMI: 29.7 BP: 130/74 Ref Provider: BANDAR WYNNE - PROCEDURES: Echocardiographic Report: Limited TTE. INDICATIONS: MEASUREMENTS: 2D/MM Value Range Doppler Value Range Estimated EF 65-70 % AV Peak Dwight 3.9 m/s [ 1.0 -1.7 ] AV Peak PG 59.3 mmHg AV Mean PG 35.0 mmHg AV VTI 83.1 cm CHINA VTI 0.8 cm2 LVOT Peak Dwight 0.93 m/s [ 0.70 - 1.10 ] LVOT Diam 2.0 cm LVOT Peak PG 3.5 mmHg LVOT VTI 20.7 cm 2D/MM Value Range Doppler Value Range - FINDINGS: Study Quality: The study was technically adequate. BP: Blood pressure: 130/74 mmHg. Left Ventricle: Normal global and regional left ventricular systolicfunction. Ejection Fraction is estimated to be 65-70. Normal left ventricular cavity size. Right Ventricle: Normal right ventricular systolic function. Normal rightventricular size. Left Atrium: The left atrium is normal in size. Right Atrium: The right atrium is normal in size. Atrial Septum: Normal appearing atrial septum. Mitral Valve: Normal appearance of the mitral valve leaflets. Moderatemitral valve regurgitation. Aortic Valve: Mild perivalvular aortic valve regurgitation. BioprostheticAV with an elevated gradient. Tricuspid Valve: Normal appearance of the tricuspid leaflets. Mildtricuspid regurgitation. Pulmonic Valve: The pulmonic valve is not seen. Pericardium: Normal appearing pericardial thickness. No significantpericardial effusion. Aortic Root and Aorta: The sinuses of Valsalva are normal. Normal caliberaortic root. Normal appearing ascending aorta. Normal appearing descending aorta. Aortic Arch: Normal caliber aortic arch. IVC: Normal appearance of the inferior vena cava. CONCLUSIONS: 1. Normal global and regional left ventricular systolic function. EjectionFraction is estimated to be 65-70. Normal left ventricular cavity size. 2. Normal appearance of the mitral valve leaflets. Moderate mitral valveregurgitation. 3. Mild perivalvular aortic valve regurgitation. Bioprosthetic AV with anelevated gradient. Electronically Signed By: Miles Melendez MD 11/02/2025 12:36:11 PM CREDENTIALS SPECIALIST Lydia GARCIA CV ECHO PROCEDURES Final Result * REPLACEMENT AORTIC VALVE - TRANSFEMORAL ENDOVASCULAR APPROACH (10/29/2025 1:34 PM CREDENTIALS SPECIALIST) Anatomical Region Laterality Modality X-Ray Angiograph y Narrative 10/29/2025 12:30 PM CREDENTIALS SPECIALIST Please see OpNote for result. us Ivan Raymond MD SURGICAL CASE ORDERS Fin tn Result * TRANSCATHETER AORTIC VALVE REPLACEMENT (TAVR) OPEN FEMORAL ART APPROACH, LEFT HEART CATHETERIZATIONWITH CORONARY ANGIOGRAPHY AND WITH AND WITHOUT LEFT VENTRICULOGRAM (10/29/2025 1:34 PM CREDENTIALS SPECIALIST) Anatomical Region Laterality Modality X-Ray Angiograph y Narrative 10/29/2025 2:50 PM CREDENTIALS SPECIALIST Images from the original result were not included. [facility] Cardiology [address] [place] [address], [id number], [address] Left heart catheterization and Transcatheter Aortic Valve Replacement Procedure Report 80 y.o. year old female with severe bioprosthetic aortic stenosis referred for left heart catheterization and valve in valve transcatheter aortic valve replacement Attending physicians: Ivan Raymond MD, Bandar Wynne MD Access:8F Right Femoral Artery and 6F Right Radial Artery Catheter:AL1 and Pigtail, FL4, FR4 Injection:Ascending Aorta, left main trunk, right coronary artery Closure:TR band and Manta Anticoagulation:[id number] Heparin and Aspirin Air Kerma:164 mGy Fluoro time:7.5 min Contrast:31 ml Optiray Sedation:per anesthesia Estimated blood Loss: minimal Preprocedural Diagnosis: Aortic Stenosis Postprocedural Diagnosis: Aortic Stenosis Procedural details: After risks, benefits, and alternatives to the procedure were explained to the patient, they agreed to proceed. After signing informed consent the patient was brought to the cardiac catheterization laboratory/hybrid OR. They were prepped and draped in sterile fashion. All access was obtained with the modified Seldinger technique, micropuncture access, and ultrasound guidance. We placed an 8 Bahamian sheath in the right femoral artery, 6 Bahamian sheath in the right radial artery. We then performed selective coronary angiography using various catheters. LMT: Normal LAD: Normal LCX: Normal RCA: Dominant, normal We then advanced a pigtail catheter from the radial artery and perform ascending aortography. We then upsized the right femoral arterial sheath to a 14 Bahamian sheath using serial dilatation. The aortic valve was crossed using an AL1 catheter and straight wire. We then exchanged for the Wattson wire. We then advanced a 23 mm Lo S3 Ultra valve. The valve was deployed after positioning with aortography and under fluoroscopic guidance. This was performed with rapid pacing at 180 beats per minute. We then post dilated the valve with a 24 mm true balloon to achieve full expansion. This was also performed with rapid pacing at 180 beats per minute. Trans esophageal ECHO postprocedure demonstrated trivial perivalvular leak. The sheaths were removed and hemostasis was achieved. Patient will be transferred to the recovery unit for further management and care. A/P: Successful implantation of a 23 mm Lo S3 Ultra valve in valve in aortic position with general anesthesia. Patient will continue aspirin and Eliquis for at least 3 months. Plan echocardiogram tomorrow. Further management per the heart team. Bandar Wynne MD 10/29/2025 2:45 PM us Bandar Wynne MD CV CARDIAC CATH PROCEDURES Final Result * (ABNORMAL) POC Activated Clotting Time, High Range (10/29/2025 1:10 PM CREDENTIALS SPECIALIST) ACT 392(H) 87 - 138 sec Blood 10/29/2025 1:10 PM CREDENTIALS SPECIALIST 10/29/2025 1:10 PM CREDENTIALS SPECIALIST us Ivan Raymond MD LAB BLOOD ORDERABLES Fin al Result [facility] [address] Department [place] [address] * DE AN PROCEDURE PLACEHOLDER (10/29/2025 12:30 PM CREDENTIALS SPECIALIST) Anatomical Region Laterality Modality Other Narrative 10/29/2025 12:30 PM CREDENTIALS SPECIALIST Fadi Kaur MD 11/13/2025 11:00 AM JENNIFER Date/time: Staff: Supervising anesthesiologist: Fadi Kaur MD Performed by: 1st Fellow: Adri Moe MD Preprocedure checklist: patient identified, procedure contraindications assessed, procedure consent, risks, benefits and alternatives discussed, monitors and equipment checked, timeout performed and JENNIFER probe inserted into esophagus using lubricating jelly General procedure Information: Reason for procedure/indications: assessment of ascending aorta, assessment of surgical repair and hemodynamic monitoring Performed: personally and with fellows Procedure performed at surgeon's request: yes Results discussed with surgeon: yes Images submitted to archive: yes Patient location: OR Intubated: yes Bite blocked placed: yes Probe Insertion: easy Complications: no Probe type: adult Modalities: 2D imaging, continuous wave Doppler, pulsed wave Doppler and color Doppler JENNIFER machine number: 2 Billing information: Physician requesting echo: Ivan Raymond MD CPT code: JENNIFER placement and diagnostic exam, non-congenital (66205) ICD code(s) for medical necessity: I35.0 - Nonrheumatic aortic (valve) stenosis Echocardiographic and doppler measurements: Ventricles: Left ventricle: Cavity size: normal Hypertrophy: Yes Thrombus: No Global function: normal LVEF%: 50-60 Right ventricle: Cavity size: normal Hypertrophy: no Thrombus: No Global function: normal Interventricular septum: normal Regional function: 1- Basal anteroseptal: hypokinetic 2- Basal anterior: hypokinetic 3- Basal anterolateral: hypokinetic 4- Basal inferolateral: hypokinetic 5- Basal inferior: hypokinetic 6- Basal inferoseptal: hypokinetic 7- Mid anteroseptal: hypokinetic 8- Mid anterior: hypokinetic 9- Mid anterolateral: hypokinetic 10- Mid inferolateral: hypokinetic 11- Mid inferior: hypokinetic 12- Mid inferoseptal: hypokinetic 13- Apical anterior: hypokinetic 14- Apical lateral: hypokinetic 15- Apical inferior: hypokinetic 16- Apical septal: hypokinetic 17- Media: hypokinetic Valves: Aortic Valve: Leaflet morphology: bioprosthetic Stenosis: moderate and severe Regurgitation: none Peak gradient: 34 mmHg Mean gradient: 19 mmHg Mitral valve: Annulus: normal Regurgitation: mild Tricuspid valve: Annulus: normal Leaflet morphology: (Thickened moderator band) Regurgitation: mild Pulmonic valve: Regurgitation: absent Aorta: Ascending aorta: Size: normal Dissection: no Plaque thickness(mm): 0-3 Plaque mobile: no Aortic arch: Size: normal Dissection: no Plaque thickness(mm): 0-3 Plaque mobile: no Descending aorta: Size: normal Dissection: no Plaque thickness(mm): 0-3 Plaque mobile: no Atria: Right atrium: Size: normal Spontaneous echo contrast: No Thrombus: no Mass: No Left atrium: Size: normal (normal) Spontaneous echo contrast: No Thrombus: no Mass: No Left atrial appendage: normal Interatrial septum: normal Diastolic function and other findings: Pericardium: normal Left pleural effusion: none Right pleural effusion: normal Pulmonary venous flow: normal Pre-procedure JENNIFER exam summary: Exam performed under general anesthesia with no inotrope. Notable for LVEF 50-60%, normal RV function. Valves notable for no AI, moderate (mean gradient 19, peak gradient 34), mild MR, mild TR, no PI. No PFO appreciated. No right-sided or left-sided pleural effusion appreciated. No pericardial effusion appreciated. Imaged aorta with small, immobile plaque and without dissection. Postprocedure (follow-up) JENNIFER exam: LV: unchanged RV: unchanged Interventricular septum: unchanged Aortic valve: unchanged Aortic valve gradient peak: 14 mmHg Aortic valve gradient mean: 9 mmHg Mitral valve: unchanged Pulmonic valve: unchanged Tricuspid valve: unchanged Atria: unchanged Aorta: unchanged Pericardium: unchanged Left pleural: unchanged Right pleural: unchanged Postprocedure (follow-up) JENNIFER exam comments: Exam performed under general anesthesia on no inotrope. Patient is s/p [id number] TAVR . Notable for LVEF 50-60%, normal RV function, unchanged from prior. Aortic valve notable for no AI, no (mean gradient 9, peak gradient 14). Valves otherwise notable for mild MR, mild TR, no PI, unchanged from prior. No PFO appreciated. No right-sided or left-sided pleural effusion appreciated. No pericardial effusion appreciated. Imaged aorta without dissection. Attestation Statement: By signing this report the attending anesthesiologist certifies that he or she has personally reviewed and interpreted the echocardiogram and has reviewed and or edited and agrees with the written comments contained within the report. us Fadi Kaur MD ANESTHESIA ORDERABLES Fi nal Result * Peripheral IV Catheter (10/29/2025 12:30 PM CREDENTIALS SPECIALIST) Narrative Adri Moe MD - 10/29/2025 12:30 PM CREDENTIALS SPECIALIST Adri Moe MD 10/29/2025 12:30 PM Peripheral IV Catheter Patient location: OR Staff: Placed by: Anesthesiologist: Fadi Kaur MD Preprocedure prep: Prep solution: alcohol PPE: gloves and provider hat/mask PIV line: Laterality: left Site: antecubital Catheter size: 16 g Technique: anatomical landmarks and direct visualization Procedure details: good blood return and occlusive dressing applied Number of attempts: 1 Assessment: Events: patient tolerated procedure well with no complications Fadi Kaur MD ANESTHESIA ORDERABLES Fi nal Result * Arterial Line (10/29/2025 12:29 PM CREDENTIALS SPECIALIST) Narrative Adri Moe MD - 10/29/2025 12:29 PM CREDENTIALS SPECIALIST Adri Moe MD 10/29/2025 12:30 PM Arterial Line Patient location: OR Indication: continuous blood pressure monitoring and blood sampling needed Staff: Placed by: Anesthesiologist: Fadi Kaur MD Procedure prep: Prep solution: chlorhexadine/alcohol Prep: provider hat/mask, sterile gloves, sterile drape and sterile probe cover Skin infiltrated with lidocaine 1%: yes Arterial line: Catheter size: 20 gauge Catheter length: 1 and 3/4 inch Catheter type: wire-guided catheter Seldinger technique: yes Laterality: left Site: radial artery Line secured: tape and Tegaderm Results: good waveform and good blood return Number of attempts: 1 Assessment: Events: patient tolerated procedure well with no complications Result [facility] Fadi Kaur MD ANESTHESIA ORDERABLES Fi nal Result * Airway (10/29/2025 12:29 PM CREDENTIALS SPECIALIST) Narrative Adri Moe MD - 10/29/2025 12:29 PM CREDENTIALS SPECIALIST Adri Moe MD 10/29/2025 12:29 PM Airway Patient location: OR Urgency: elective Indications for airway management: anesthesia and airway protection Difficult airway: no Staff: Supervising provider: Fadi Kaur MD Placed by: Resident: Adri Moe MD Emergent airway documentation: Risks and benefits discussed: yes Consent obtained: yes Consent given by: patient Airway prep: Preoxygenated: yes Patient position: sniffing Mask difficulty assessment: 1 - vent by mask Spontaneous ventilation during airway: absent Sedation level during airway: GA Final airway details: Final airway type: endotracheal airway Tube type: ETT ETT size: 7.0 mm Cuffed: yes Technique used for successful ETT placement: video laryngoscopy Devices/Methods used in placement: stylet Insertion site: oral Blade type: Beka Video blade type: Bryan Blade size: 3 Cormack-Lehane (video): grade I - full view of glottis Cuff volume: 10 mL Cuff inflated with: air ETT to lips: 21 cm Placement verified by: auscultation Airway secured with: silk tape Number of attempts: 1 Planned trial extubation: yes Fadi Kaur MD ANESTHESIA ORDERABLES Fi nal Result * JENNIFER Add-On For OR (10/29/2025 11:23 AM CREDENTIALS SPECIALIST) Narrative CONS SCIMAGE - 10/29/2025 11:23 AM CREDENTIALS SPECIALIST Procedure Auto Finalized by Rule: MARLENE CV JENNIFER DURING CASE OR Please see the Anesthesiologist's Procedure Note for the results. us Fadi Kaur MD CV ECHO PROCEDURES Final Result CONS SCIMAGE * Pro B-type natriuretic peptide (10/29/2025 10:33 AM CREDENTIALS SPECIALIST) NT-proBNP 397 <=450 pg/mL Comment: Interpretive Comments: A. Dyspnea in Acute Care Setting All Ages: < 300 pg/ml, acute heart failure unlikely. < 50 yrs: 300 - 450 pg/ml, further investigation warranted. > 450 pg/ml, acute heart failure likely. 50 - 74 yrs: 300 - 900 pg/ml, further investigation warranted. > 900 pg/ml, acute heart failure likely . > or = 75 yrs: 450 - 1800 pg/ml, further investigation warranted. > 1800 pg/ml, acute heart failure likely. B. Non-acute Setting < 75 yrs < 125 pg/ml, rules out heart failure. > or = 125 pg/ml, further investigation warranted. > or = 75 yrs < 450 pg/ml, rules out heart failure. > or = 450 pg/ml, further investigation warranted. - Knowledge of each individual patient's NT-proBNP range may be more useful than using similar cut-points for every patient. Please note that marked elevations in NT-proBNP levels may be observed in state other than Left Ventricular Congestive Failure, including: acute coronary syndromes, right heart strain/failure (including pulmonary embolism and cor pulmonale), critical illness, renal failure, as well as advanced age. - References: 1. Yair BRUNNER et.al. Eur Heart J. 2006:27:330-337. 2. Jorge L Thomas AM. J. AM Yasmeen Cardiol: Cardiovasc Imag. 2009;2: 216- 225. Interpretive Data Last Revised Date: 2018. Blood 10/29/2025 10:3 3 AM CREDENTIALS SPECIALIST 10/29/2025 10:39 AM CREDENTIALS SPECIALIST Ivan Raymond MD LAB BLOOD ORDERABLES Fin al Result Performing Organization Address City/[facility]/ZIP Co de Phone Number [facility] [address] [facility] [place] [address] * Type and screen (10/29/2025 10:33 AM CREDENTIALS SPECIALIST) ABO Rh A Positive Billy, indirect Negative [facility] Blood 10/29/2025 10:3 3 AM CREDENTIALS SPECIALIST 10/29/2025 10:42 AM CREDENTIALS SPECIALIST Ivan Raymond MD LAB BLOOD BANK TEST ORDE RABLES Final Result Performing Organization Address [facility] Co de Phone Number [facility] [address] [facility] [place] [address] * Prepare RBC: 2 Units (10/29/2025 9:55 AM CREDENTIALS SPECIALIST) Product code [id number] Unit Number [id number] 5-Q [facility] Product Blood Type APOS [facility] Dispense Status RETURNED [facility] Product code [id number] [facility] Unit Number [id number] 6-S [facility] Product Blood Type APOS [facility] Dispense Status RETURNED [facility] Blood 10/29/2025 9:55 AM CREDENTIALS SPECIALIST Narrative [facility] - 10/31/2025 8:25 AM CREDENTIALS SPECIALIST Specify Procedure:->TAVR Are special requirements needed? (All products are leukoreduced and CMV- safe)- >No Date required:-[id number] LRRBC # of Ayepc-8-Dxped Reasons:-Hold for procedure (specify procedure)} us Ivan Raymond MD BLOOD BANK PRODUCT ORDER RUPERT Final Result [facility] [address] Department [place] [address] * eGFR (10/26/2025 11:55 AM CREDENTIALS SPECIALIST) eGFR 74 >=60 mL/min/1. 73 m2 Comment: Interpretive Data Reference Interval Normal >/= 90 mL/min/1.73m2 Mildly decreased* 60 - 89 mL/min/1.73m2 Mildly to moderately decreased 45 - 59 mL/min/1.73m2 Moderately to severely decreased 30 - 44 mL/min/1.73m2 Severely decreased 15 - 29 mL/min/1.73m2 Kidney Failure < 15 mL/min/1.73m2 *Relative to young adult level Estimated glomerular filtration rate is determined by the 2020 CKD-EPI equation recommended by the National Kidney Foundation (A Unifying Approach to GFR Estimation: Recommendations of the NKF-ASK Task Force on Reassessing the Inclusion of Race in Diagnosing Kidney Disease, JASN 2020). The CKD-EPI equation should not be used for patients with unstable renal function and has not been validated in children and those over 70. Current interpretive data was last reviewed 2021. Testing performed by: [facility], [address] [place] [address]., [address] Blood 10/26/2025 11:5 5 AM CREDENTIALS SPECIALIST 10/26/2025 12:06 PM CREDENTIALS SPECIALIST us Meri Dugan SALES INCENTIVE ANALYST LAB BLOOD ORDERABLES Final Result CATHERINE [address] [facility] Department [place] [address] * Differential, auto (10/26/2025 11:55 AM CREDENTIALS SPECIALIST) Pathologist [facility] Neutrophil abs 4.45 1.50 - 6.50 K/cumm Comment:Testing performed by : [address] [address] Imm gran abs 0.02 0.00 - 0.10 K/cumm CATHERINE Comment:Testing performed by : [address] [address] Lymphocyte abs 1.43 0.80 - 3.30 K/cumm CATHERINE Comment:Testing performed by : [address] [address] Monocyte abs 0.57 0.20 - 0.80 K/cumm [facility] Comment:Testing performed by : [address] [address] Eosinophil abs 0.19 0.00 - 0.50 K/cumm [facility] Comment:Testing performed by : [address] [address] Basophil abs 0.03 0.00 - 0.10 K/cumm [facility] Comment:Testing performed by : [address] [address] Neutrophil pct 66.6 % [facility] Comment: Interpretive Data Percent cell count reference ranges are not reported, since discordance with absolute values may lead to misinterpretation of CBC data. Current Interpretive Data was last revised on 2018. Testing performed by: [address] [address] Imm gran pct 0.3 % [facility] Comment: Interpretive Data Percent cell count reference ranges are not reported, since discordance with absolute values may lead to misinterpretation of CBC data. Current Interpretive Data was last revised on 2018. Testing performed by: [address] [address] Lymphocyte pct 21.4 % [facility] Comment: Interpretive Data Percent cell count reference ranges are not reported, since discordance with absolute values may lead to misinterpretation of CBC data. Current Interpretive Data was last revised on 2018. Testing performed by: [address] [address] Monocyte pct 8.5 % [facility] Comment: Interpretive Data Percent cell count reference ranges are not reported, since discordance with absolute values may lead to misinterpretation of CBC data. Current Interpretive Data was last revised on 2018. Testing performed by: [address] [address] Eosinophil pct 2.8 % [facility] Comment: Interpretive Data Percent cell count reference ranges are not reported, since discordance with absolute values may lead to misinterpretation of CBC data. Current Interpretive Data was last revised on 2018. Testing performed by: [address] [address] Basophil pct 0.4 % CATHERINE [facility]ATR[facility] Comment: Interpretive Data Percent cell count reference ranges are not reported, since discordance with absolute values may lead to misinterpretation of CBC data. Current Interpretive Data was last revised on 2018. Testing performed by: [address] [address] Blood 10/26/2025 11:5 5 AM CREDENTIALS SPECIALIST 10/26/2025 12:11 PM CREDENTIALS SPECIALIST us Meri Dugan SALES INCENTIVE ANALYST LAB BLOOD ORDERABLES Final Result [facility]ATHERINE [address] [facility] Department [place] [address] * CBC with auto differential (10/26/2025 11:55 AM CREDENTIALS SPECIALIST) WBC 6.69 3.80 - 9.90 K/cumm Comment:Testing performed by : [address] [address] Hgb 13.6 11.9 - 15.5 g/dL CATHERINE K[facility]KPATRICK Comment:Testing performed by : [address] [address] Hct 41.3 35.6 - 45.5 % CATHERINE KIRKPATRICK Comment:Testing performed by : [address] [address] Plt 178 150 - 400 K/cumm CATHERINE KIRKPATRICK Comment:Testing performed by : [address] [place]., [address] MPV 9.4 9.1 - 12.3 fL CATHERINE KIRKPATRICK Comment:Testing performed by : [address], [address] RBC 4.51 3.90 - 5.20 M/cumm CATHERINE KIRKPATRICK Comment:Testing performed by : [address] [address] MCV 91.6 81.3 - 96.4 fL CATHERINE Comment:Testing performed by : [address] [address] MCH 30.2 27.1 - 33.3 pg CATHERINE Comment:Testing performed by : [address] [address] MCHC 32.9 32.3 - 35.7 g/dL CATHERINE Comment:Testing performed by : [address], [address] RDW CV 13.2 11.1 - 14.9 % CATHERINE Comment:Testing performed by : [address], [address] RDW SD 44.4 35.7 - 48.1 fL CATHERINE Comment:Testing performed by : [address] [address] NRBC abs 0.00 0.00 - 0.01 K/cumm CATHERINE KIRKPATRICK Comment:Testing performed by : [address], [address] Blood 10/26/2025 11:5 5 AM CREDENTIALS SPECIALIST 10/26/2025 12:11 PM CREDENTIALS SPECIALIST us Meri Dugan SALES INCENTIVE ANALYST LAB BLOOD ORDERABLES Final Result CATHERINE K[facility]KPATRICK [address] [facility] Department [place] [address] * Type and screen (10/26/2025 11:55 AM CREDENTIALS SPECIALIST) Billy, indirect Negative CATHERINE KIRKPATRICK ABO Rh A Positive CATHERINE K[facility]KPATRICK Blood 10/26/2025 11:5 5 AM CREDENTIALS SPECIALIST 10/26/2025 12:11 PM CREDENTIALS SPECIALIST Narrative PRESLEYMOY - 10/26/2025 1:06 PM CREDENTIALS SPECIALIST For antibody screen Has the patient had Daratumumab or Isatuximab in the past 6 months?->Unknown Meri Dugan SALES INCENTIVE ANALYST LAB BLOOD BANK TEST ORDERA BLES Final Result [facility]ATHERINE [address] [facility] Department [place] [address] * Basic metabolic panel (10/26/2025 11:55 AM CREDENTIALS SPECIALIST) Sodium 135 135 - 145 mmol/L Comment:Testing performed by : [address] [address] Potassium, pl 3.5 3.3 - 4.9 mmol/L CATHERINE Comment:Testing performed by : [address] [address] Chloride 98 97 - 110 mmol/L CATHERINE Comment:Testing performed by : [address] [address] CO2 31 22 - 32 mmol/L CATHERINE Comment:Testing performed by : [address] [address] Anion gap 6 2 - 15 mmol/L CATHERINE Comment:Testing performed by : [address] [address] BUN 22 6 - 25 mg/dL CATHERINE Comment:Testing performed by : [address] [address] Creatinine 0.80 0.60 - 1.10 mg/dL CATHERINE Comment:Testing performed by : [address] [address] Glucose 102 70 - 199 mg/dL CATHERINE Comment: Interpretive Data Fasting glucose >/= 126 mg/dl is diagnostic for diabetes. Fasting is defined as no caloric intake for at least 8 hours. Fasting glucose between 100 mg/dl to 125 mg/dl is diagnostic of prediabetes. In a patient with classic symptoms of hyperglycemia or hyperglycemic crisis, a random glucose >/= 200 mg/dl is diagnostic for diabetes. In the absence of unequivocal hyperglycemia, results should be confirmed by repeat testing. The classification and Diagnosis of Diabetes Diabetes Care 2021; 46: S19-S40. Current interpretive data was last revised 2022. Testing performed by: [facility], [address] [place] [address]., [address] Calcium 9.0 8.5 - 10.3 mg/dL CATHERINE Comment:Testing performed by : [address] [address] Blood 10/26/2025 11:5 5 AM CREDENTIALS SPECIALIST 10/26/2025 12:06 PM CREDENTIALS SPECIALIST us Meri Dugan SALES INCENTIVE ANALYST LAB BLOOD ORDERABLES Final Result Performing Organization Address City/[facility]/ZIP Co de Phone Number [facility]ATHERINE [facility] Department [place] [address] * ECG 12 lead (10/02/2025 1:02 PM CREDENTIALS SPECIALIST) 10/02/2025 10:5 1 AM CREDENTIALS SPECIALIST Narrative [facility] - 10/02/2025 10:16 PM CREDENTIALS SPECIALIST Vent Rate: 72 bpm RR Interval: 827 msec DE Interval: 152 msec QRS Duration: 91 msec QT Interval: 401 msec QTC Interval: 425 msec P-R-T Browns: 56 - -14 - 78 degrees IMPRESSION: SINUS RHYTHM POOR R-WAVE PROGRESSION - LATE TRANSISITION vs. ANTERIOR DE INDETERMINATE AGE ABNORMAL ECG Electronically Signed By: Miles Melendez MD us Kat Ascencio SALES INCENTIVE ANALYST ECG ORDERABLES Final Resul t [facility] * CT TAVR (10/02/2025 10:28 AM CREDENTIALS SPECIALIST) Anatomical Region Laterality Modality Chest N/A Computed Tomogra phy 10/02/2025 11:4 5 AM CREDENTIALS SPECIALIST Impressions 10/02/2025 11:47 AM CREDENTIALS SPECIALIST 1. Aortic annulus, and abdominal aortic, common iliac, external iliac and femoral artery measurements in preparation for TAVR procedure as described above. The right coronary ostium measures 10 mm from the prosthetic aortic valve annulus. Dictated by: Yuri De Los Santos MD PHD The radiology attending physician has personally reviewed this study, and had reviewed and/or edited this written report and agrees with it. Electronically signed by: Ivan Flaherty M.D. Narrative 10/02/2025 11:47 AM CREDENTIALS SPECIALIST EXAMINATION: Heart CT and CTA abdomen and pelvis with contrast. History: Bioprosthetic aortic valve stenosis Technique: Heart CT and CT angiogram of the abdomen and pelvis performed during administration of 115 mL of Optiray 350, intravenously per TAVR Protocol. Images were transferred to an independent workstation for additional 3D post-processing. FINDINGS: Changes of median sternotomy and aortic valve replacement are seen with thickened and calcified appearance of the bioprosthetic valve leaflets. Annulus and Thoracic Aortic Measurements (in systole): Aortic valve annulus (prosthetic valve): Area 381 mm2: circumference 70 mm; 24 mm maximum diameter x 20 mm minimum diameter. Sinuses of Valsalva: 33 x 32 x 32 mm Sinotubular junction: 29 mm diameter sagittal x 28 mm diameter coronal. Ascending aorta: 34 x 34 mm. There is no left ventricular outflow tract calcification. There is no mitral annular calcification. Distance to RCA ostium from prosthetic aortic valve annulus: 10 mm Distance to left main ostium from prosthetic aortic valve annulus: 13 mm Distance to RCA ostium from prosthetic aortic valve housin mm Distance to left main ostium from prosthetic aortic valve housin mm Right coronary sinus height: 15 mm Left coronary sinus height: 18 mm Non-coronary sinus height: 16 mm Deployment angle: 3 ISRAELI, 1 Cranial Abdominal Aortic and Pelvic Arterial Smallest Diameter Measurements (made from centerline curved MPRs): Infrarenal aorta: 14 mm x 14 mm. There is moderate calcification. Right common iliac artery: 11 mm x 11 mm. There is mild calcification. Left common iliac artery: 10 mm x 10 mm. There is mild calcification. There is mild tortuosity of the bilateral common iliac arteries. This is equal in distribution. Right external iliac artery: 9 mm x 8 mm. There is no calcification. Left external iliac artery: 9 mm x 8 mm. There is no calcification. There is mild tortuosity of the bilateral external iliac arteries. This is more severe on the left. Right common femoral artery: 9 mm x 9 mm. There is mild calcification. Left common femoral artery: 9 mm x 8 mm. There is mild calcification. There is mild tortuosity of the bilateral femoral arteries. This is equal in distribution. Other findings: Mildly thick-walled distal thoracic esophagus which may be seen in the setting of esophagitis. Mild mosaic attenuation of the lungs with bibasilar atelectasis. Mild fatty atrophy of the pancreas. Colonic diverticulosis. Renal cysts. Surgically absent uterus. Changes of ventral abdominal hernia repair. Procedure Note Ivan Flaherty MD PhD - 10/02/2025 EXAMINATION: Heart CT and CTA abdomen and pelvis with contrast. History: Bioprosthetic aortic valve stenosis Technique: Heart CT and CT angiogram of the abdomen and pelvis performed during administration of 115 mL of Optiray 350, intravenously per TAVR Protocol. Images were transferred to an independent workstation for additional 3D post-processing. FINDINGS: Changes of median sternotomy and aortic valve replacement are seen with thickened and calcified appearance of the bioprosthetic valve leaflets. Annulus and Thoracic Aortic Measurements (in systole): Aortic valve annulus (prosthetic valve): Area 381 mm2: circumference 70 mm; 24 mm maximum diameter x 20 mm minimum diameter. Sinuses of Valsalva: 33 x 32 x 32 mm Sinotubular junction: 29 mm diameter sagittal x 28 mm diameter coronal. Ascending aorta: 34 x 34 mm. There is no left ventricular outflow tract calcification. There is no mitral annular calcification. Distance to RCA ostium from prosthetic aortic valve annulus: 10 mm Distance to left main ostium from prosthetic aortic valve annulus: 13 mm Distance to RCA ostium from prosthetic aortic valve housin mm Distance to left main ostium from prosthetic aortic valve housin mm Right coronary sinus height: 15 mm Left coronary sinus height: 18 mm Non-coronary sinus height: 16 mm Deployment angle: 3 [place], 1 Cranial Abdominal Aortic and Pelvic Arterial Smallest Diameter Measurements (made from centerline curved MPRs): Infrarenal aorta: 14 mm x 14 mm. There is moderate calcification. Right common iliac artery: 11 mm x 11 mm. There is mild calcification. Left common iliac artery: 10 mm x 10 mm. There is mild calcification. There is mild tortuosity of the bilateral common iliac arteries. This is equal in distribution. Right external iliac artery: 9 mm x 8 mm. There is no calcification. Left external iliac artery: 9 mm x 8 mm. There is no calcification. There is mild tortuosity of the bilateral external iliac arteries. This is more severe on the left. Right common femoral artery: 9 mm x 9 mm. There is mild calcification. Left common femoral artery: 9 mm x 8 mm. There is mild calcification. There is mild tortuosity of the bilateral femoral arteries. This is equal in distribution. Other findings: Mildly thick-walled distal thoracic esophagus which may be seen in the setting of esophagitis. Mild mosaic attenuation of the lungs with bibasilar atelectasis. Mild fatty atrophy of the pancreas. Colonic diverticulosis. Renal cysts. Surgically absent uterus. Changes of ventral abdominal hernia repair. IMPRESSION: 1. Aortic annulus, and abdominal aortic, common iliac, external iliac and femoral artery measurements in preparation for TAVR procedure as described above. The right coronary ostium measures 10 mm from the prosthetic aortic valve annulus. Dictated by: Yuri De Los Santos MD PHD The radiology attending physician has personally reviewed this study, and had reviewed and/or edited this written report and agrees with it. Electronically signed by: Ivan Flaherty M.D. Bandar Wynne MD IMG CT PROCEDURES Final Result * POCT creatinine for contrast evaluation (10/02/2025 10:05 AM CREDENTIALS SPECIALIST) [facility] Creatinine, POC 0.9 0.6 - 1.3 mg/dL Comment:eGFR:66 Blood 10/02/2025 10:0 5 AM CREDENTIALS SPECIALIST Bandar Wynne MD POINT OF CARE TEST ORDERABLES Fi nal Result * TRANSTHORACIC ECHO (TTE) COMPLETE W DOPPLER/CF WO CONTRAST (09/07/2025 12:56 PM CDT) [facility] Estimated EF 70-75 % CONS SCIMAGE EF Mod BP 73 % CONS SCIMAGE Anatomical Region Laterality Modality Ultrasound 09/07/2025 11:2 2 AM CDT Narrative 09/07/2025 1:11 PM CDT [facility] Cardiology [address] [facility] [address], [place] [address] [address] [facility] [address], [place] [address] P:[phone] P:[phone] Echocardiographic Report Patient Name: KATHY MERAZ L : 1945 Study Date: 09/07/2025 11:22:03 AM Sex: F Vascular Technologist Sonographer: Libertad Lemons)(CT), [facility] Location: [place] Ref Provider: JESSICA STAFFORD Height(Cm): 163 BSA: 1.89 Weight(Kg): 78.5 Heart Rate: 90 BP: 124 / 66 Quality: Good Order Provider: JESSICA STAFFORD PROCEDURES: Echocardiographic Report: Transthoracic echocardiogram with complete [...] - 52.00 ] MV E Peak Dwight 0.61 m/s [ 0.60 - 1.30 ] LA Volume Index 20 cc/m2 [ 16 - 28 ] MV A Peak Dwight 0.99 m/s [ 1.00 - 1.20 ] RA Volume 30.84 ml MV Decel Time 232 msec [ 104 - 258 ] PV Peak Dwight 0.82 m/s [ 0.40 - 0.80 ] TR Peak Dwigth 2.41 m/s [ 1.00 - 2.80 ] TR Peak PG 23 mmHg Lateral E` 0.06 m/s [ 0.10 - 0.15 ] Septal E` 0.05 m/s [ 0.08 - 0.15 ] E` 0.05 m/s E/E` 12 Tapse 1.96 cm [ 1.71 - 5.00 ] 2D/MM Value Range Doppler Value Range - FINDINGS: Interpretation Site: Exam was interpreted at [facility]. Left Ventricle: Normal left ventricular systolic function. [...] Normal sinus rhythm. Electronically Signed By: Jessica Stafford MD 09/07/2025 1:10:45 PM CDT Procedure Note Jessica Stafford MD - 09/07/2025 [facility] Cardiology [address] [facility] [address], [place] [address] [address] [facility] [address], [place] [address] P:[phone] P:[phone] Echocardiographic Report Patient Name: KATHY MERAZ L : 1945 Study Date: 09/07/2025 11:22:03 AM Sex: F Vascular Technologist Sonographer: Libertad Lemons)(CT), [facility] Location: [facility] Provider: JESSICA STAFFORD Height(Cm): 163 BSA: 1.89 Weight(Kg): 78.5 Heart Rate: 90 BP: 124 / 66 Quality: Good Order Provider: JESSICA STAFFORD PROCEDURES: Echocardiographic Report: Transthoracic echocardiogram with complete [...] Interpretation Site: Exam was interpreted at [facility]. Left Ventricle: Normal left ventricular systolic function. [...] Normal sinus rhythm. Electronically Signed By: Jessica Stafford MD 09/07/2025 1:10:45 PM CDT Jessica Stafford MD CV ECHO PROCEDURES Final Result from Last [address] [facility] HE[facility]CARE Advance Directives For more information, please contact: [phone] * Full Code (Latest Code Status on File) Date Activated Date Inactivated Comments 10/29/2025 9:54 AM 10/31/2025 4:04 PM * Full Code Date Activated Date Inactivated Comments 08/16/2019 1:39 PM 08/23/2019 5:13 PM Care Teams Paintings Restorer Relationship Specialty Start Date End Date Yovanny Latham MD [address] [place] [address] PCP - General Family Medicine 01/18/25 Bandar Wynne MD [address] [place] [address] Referring Physician Cardiology 09/20/25 Meri Dugan NP [address] [place] [address] Nurse Practitioner Cardiothoracic Surgery 10/31/25
--- OUTSIDE RECORDS SUMMARY | 2025-11-18 11:51 | XMS_ITS | Clinical Summary ---
Author Organization [facility] Care Team Providers Care Aircraft Ordnance Technician Name Role Phone Unavailable Primary Care Provider Unavailabl e Social History Tobacco Use Types Packs/Day Years Used Date Smoking Tobacco: Never Assessed Comments Unknown Sex and Gender Information Value Date Recorded Sex Assigned at Not on file Legal Sex Female 10:13 PM CDT Gender Identity Not on file Sexual Orientation Not on file Plan of Treatment Health Maintenance Due Date Last Done Comments Hepatitis C Virus (HCV) Screening 1945 TdaP Immunization 1945 Pneumococcal Immunization (50+ years) (2 of 2 - PCV) 10/08/2015 10/08/2014 Respiratory Syncytial Virus (RSV) Immunization (Adult) (1 - 1-dose 75+ series) 2019 Influenza Immunization (#1) 07/23/202508/23, 09/10/2020, 09/27/2019, Additional history exists SARS-COV-2 Immunization ( season) 2025 11/28/2021, 02/11/2021, 01/21/2021 Pneumococcal Immunization Combined Discontinued 10/08/2014 Zoster Immunization Completed 11/11/2020, 0 Hepatitis B Immunization Aged Out No longer eligible based on patient's age to complete this topic Human Papillomavirus (HPV) Immunization Aged Out No longer eligible based on patient's age to complete this topic Meningococcal Immunization (ACWY) Aged Out No longer eligible based on patient's age to complete this topic Rotavirus Immunization Aged Out No lo nger eligible based on patient's age to complete this topic
[2025-11-18 12:08] VITALS: BP 142/78; PULSE 76; RESP 18; TEMP 36.2; O2SAT 100
[2025-11-18 12:27] LABS: EDUAAPPEAR Clear; EDUABILI Negative (Negative); EDUABLOOD Negative (Negative); EDUACOLOR1 Yellow; EDUAGLUCOSE Negative (Negative); EDUAKETONE Negative (Negative); EDUALEUKO Negative (Negative); EDUANITRATE Negative (Negative); EDUAPH 8.5; EDUAPROTEIN Negative (Negative); EDUASPGRAVITY 1.020; EDUAUROBILI 0.2
--- NOTE | 2025-11-18 13:05 | ED.FEMALEGU ---
HPI - Female Genitourinary General Chief complaint: Urogenital-Female Stated complaint: UTI History of Present Illness HPI Narrative: Chief Complaint Weakness and urinary symptoms. Patient Summary The patient, a female, presents with weakness and urinary symptoms following an ankle replacement 6-8 weeks ago. History of Present Illness The patient underwent an ankle replacement procedure 6-8 weeks ago through the groin approach, which she reported was easier than her previous surgery. Since then, she has experienced symptoms resembling a urinary tract infection (UTI). She consulted a doctor on November 09, and was prescribed antibiotics, specifically Augmentin, at one tablet every 12 hours for five days. However, she did not start taking them until three days after receiving them, initially believing they were for a sinus infection. The patient reports feeling very weak and likens the sensation to having the flu, with no associated cough, runny nose, sore throat, fever, body aches, or chills. She reports difficulty urinating, with infrequent urination and small amounts of urine. A urine analysis today showed no blood, nitrates, or white blood cells, but a culture was sent for further evaluation. Augmentin is continued pending culture results to determine if it is effective against any bacterial growth. Social History - No specific social history provided. Family History - No specific family history provided. Review of Systems - Weakness: Yes - Urinary symptoms: Yes (difficulty and infrequent urination) - Cough: Occasional dry cough - Runny nose: No - Sore throat: No - Fever: No - Body aches: No - Chills: No - Shortness of breath: Reports not having - Chest pain: Reports not having Vitals and Physical Exam Findings Not available. Related Data Home Medications ?Medication ?Instructions ?Recorded ?Confirmed ?Last Taken ?Type Adult One Daily Multivitamin 1 caplet PO DAILY 09/22/19 11/09/25 Unknown History aspirin 81 mg tablet,delayed 81 mg PO DAILY 09/22/19 11/09/25 Unknown History release (Adult Low Dose Aspirin) calcium 600 mg (as 1 cap PO DAILY 09/22/19 11/09/25 Unknown History carbonate)-vitamin D3 5 mcg (200 unit) capsule (Calcium 600 + D(3)) coenzyme Q10 10 mg capsule 10 mg PO ONCE 09/25/19 11/09/25 Unknown History omega-3 fatty acids 1,000 mg 1,000 mg PO DAILY 07/02/20 11/09/25 Unknown History capsule (Fish Oil Concentrate) vitamins A,C,I-vjgs-lyrgpa 2,148 2 tablet PO BID 05/15/21 11/09/25 Unknown History mcg-113 mg-45 mg-17.4 mg tablet (PreserVision AREDS) zinc 50 mg tablet 50 mg PO DAILY 05/15/21 11/09/25 Unknown History vitamin B complex (B 1 tablet DAILY 10/05/22 11/09/25 Unknown History Complex-Vitamin B12 tablet) latanoprost 0.005 % eye drops 1 drp EACH EYE DAILY 09/10/25 11/09/25 Unknown History metoprolol tartrate 25 mg tablet mg 09/23/25 11/09/25 Unknown History Allergies Allergy/AdvReac Type Severity Reaction Status Date / Time nitrofurantoin AdvReac Intermediate Diarrhea Verified 11/18/25 11:54 Review of Systems Review of Systems: All systems reviewed & are unremarkable except as noted in HPI and below Eyes: Eyes: Reports as per HPI ENT: Reports as per HPI Cardiovascular: Cardiovascular: Reports as per HPI Respiratory: Respiratory: Reports as per HPI Genitourinary: Genitourinary: Reports as per HPI Musculoskeletal: Musculoskeletal: Reports as per HPI Integumentary/Breasts: Skin/Breast: Reports as per HPI Neurologic: Reports as per HPI Psychiatric: Psychiatric: Reports as per HPI Endocrine: Endocrine: Reports as per HPI Hematologic/Lymphatic: Hematologic/Lymphatic: Reports as per HPI Allergic/Immunologic: Allergic/Immunologic: Reports as per HPI PMF Past Medical History Medical History Post-menopausal Screening for breast cancer Vaginal irritation Arthralgia Pulmonary nodule SOB (shortness of breath) Hypertensive heart disease with chronic diastolic congestive heart failure Sacrococcygeal disorders, not elsewhere classified Vaginal itching Atrophic vaginitis Mild valvular heart disease Bilateral sacroiliitis Abnormal colonoscopy 2020- tubular adenoma- repeat in 5 years Spinal stenosis of lumbar region Breast mass, left Breast pain, left Back muscle spasm Chronic diastolic (congestive) heart failure CKD (chronic kidney disease) stage 3, GFR 30-59 ml/min OAB (overactive bladder) Major depressive disorder, recurrent, moderate Mixed hyperlipidemia Hypothyroidism (acquired) Diarrhea Acute otitis media Tinnitus Acute sinusitis Trochanteric bursitis of both hips Hypokalemia Chronic anticoagulation Fatigue Anorexia Aortic valve regurgitation Status post aortic valve repair for aortic regurgitation August 16, 2019 at [facility]. Patient believe she may have had atrial fibrillation postoperatively for short period of time. States she is taking Coumadin through October ?to prevent clots.? GERD (gastroesophageal reflux disease) Osteoarthritis Benign colon polyp Hypothyroidism Hyperlipidemia Hypertension Depression with anxiety Elevated troponin I level Chest pain Surgical History Surgical History S/P TAVR (transcatheter aortic valve replacement) Valve in valve replacement. 10/29/25 Hx of colonoscopy with polypectomy Hx of aortic valve replacement August 16, [address] Mojica at [facility]. S/P cataract surgery S/P excision of lipoma Intramuscular lipoma removed from the left upper extremity in November [address] Gaxiola. History of colostomy H/O cardiac catheterization July 18, [address] Jimenes showed normal coronary arteries, normal left ventricular systolic function and ejection fraction, and severe aortic regurgitation. H/O: hysterectomy For endometriosis. Family History Family History Sibling Congestive heart failure Father Prostate carcinoma Sibling FH: stomach cancer Sibling Congestive heart failure Mother , at age 95 of old age. No problems noted. Father , at age 72. Malignant neoplasm of prostate Father Family history of malignant neoplasm Mother Family history of heart disease in male family member before age 55 Hypertension Family history of arthritis Sibling Family history of heart disease in male family member before age 55 Other Diabetes mellitus Family history of cardiovascular disease Family history of tuberculosis Social History Social History Social History: Mrs. Wright is and lives in [place], [place]. 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 Her primary care provider is Dr. Janett Wharton. She denies alcohol, tobacco, and drug use. She designates her as her surrogate decision maker and she wishes to be a full code. Smoking status: Never smoker Second hand tobacco smoke exposure: No Alcohol intake: never Substance use: never Substance use type: does not use Lack of Transportation: No Lack of Food: Never True Current Housing: I Have Housing Concerned About Future Housing: No Difficulty Paying Gas/Electric Bills: No Difficulty Paying for Meds: No Currently Unemployed: No Education: High School Diploma/GED Difficulty w/ Childcare or Family Care: No Living arrangements: with family Occupation/Education: retired Gender identity (if verbalized by the patient): Female Sexual Orientation (if Verbalized by the Patient): Straight or Heterosexual Spiritual care concerns: No Exam Const: General: cooperative, healthy appearing, comfortable, no acute distress and well developed Orientation/consciousness: patient oriented x3 HENMT: Head: normal to inspection Eyes: General: appearance normal, both eyes and all related structures Resp: Effort & Inspection: normal respiratory effort and able to speak in complete sentences Auscultation: clear to auscultation bilaterally Cardio: Rate: regular rate Rhythm: regular rhythm Heart sounds: S1 normal heart sound present and S2 normal heart sound present GI: Other: tenderness to pelvic region Skin: General skin exam: normal color Neuro: General: patient oriented x3 Cognition (Neuro): normal cognition Speech: normal speech Psych: Mental Status: mental status grossly normal Course Course Level of Care: Express Care Visit Vital Signs Vital signs: Vital Signs Temperature 97.2 F L 11/18/25 12:08 Pulse Rate 76 11/18/25 12:08 Respiratory Rate 18 11/18/25 12:08 Blood Pressure 142/78 H 11/18/25 12:08 Pulse Oximetry 100 11/18/25 12:08 Oxygen Delivery Room Air 11/18/25 12:08 Temperature 97.2 F L 11/18/25 12:08 Pulse Rate 76 11/18/25 12:08 Respiratory Rate 18 11/18/25 12:08 Blood Pressure 142/78 H 11/18/25 12:08 Pulse Oximetry 100 11/18/25 12:08 Oxygen Delivery Room Air 11/18/25 12:08 MDM MDM Narrative Medical decision making narrative: HPI is noted differentials as below. Urinalysis without blood, leukocytes, or nitrates. Low suspicion for UTI at this time. Patient is aware to continue antibiotics and if culture comes back positive someone will let her know. She is currently taking Augmentin twice a day. She is also aware that if anything is worse or any concerns for urinary retention we are not able to evaluate that here and she would need to go to the ER Plan - Continue Augmentin as prescribed. - Await urine culture results to determine the presence of infection and the efficacy of Augmentin. 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 - Monitor symptoms and seek emergency care if experiencing worsening weakness, shortness of breath, chest pain, or inability to perform daily activities. - Re-evaluate symptoms if no improvement occurs, and consider further evaluation for urinary retention or other causes of symptoms. Differential Diagnosis Differential Diagnosis: Assessment 1. Possible urinary tract infection 2. Recent aortic valve replacement surgery 3. Weakness Lab Data MDM Lab Attestation statement: I personally reviewed the patient's lab results. Labs: Lab Results 11/18/25 Range/Units 12:25 POC Urine Color Yellow POC Urine Clarity Clear POC Urine pH 8.5 POC Ur Specif [place] 1.020 POC Urine Protein Negative (Negative) POC Ur Glucose (UA) Negative (Negative) POC Urine Ketones Negative (Negative) POC Urine Blood Negative (Negative) POC Urine Nitrite Negative (Negative) POC Urine Bilirubin Negative (Negative) POC Urine Urobilinogen 0.2 POC U Leukocyte Esteras Negative (Negative) Discharge Plan Discharge Clinical Impression: Weakness, Difficulty in micturition Patient Disposition: Home Condition: Stable Instructions: Antibiotic Form Additional Instructions: Finish the antibiotic that your provider gave you as instructed. We are running a urine culture but her urinalysis did not look like you had a UTI. If symptoms persist or worsen please go to the ER as we are not capable of checking to see if your retaining urine or do any lab work. If urine culture comes Back positive someone will notify you. Patient Language: Belgian Prescriptions: No Action metoprolol tartrate 25 mg tablet vitamin B complex [B Complex-Vitamin B12] Tablet 1 tablet DAILY omega-3 fatty acids [Fish Oil Concentrate] 1,000 mg capsule 1,000 mg PO DAILY zinc 50 mg tablet 50 mg PO DAILY PreserVision AREDS 7,160 unit- 113 mg-100 unit tablet 2 tablet PO BID Rx Instructions: administer with AM and PM meals triamcinolone acetonide 0.1 % cream 1 applic topical BID Qty: 30 0RF latanoprost 0.005 % drops 1 drp EACH EYE DAILY oxybutynin chloride 5 mg tablet 5 mg PO QHS Qty: 30 1RF Adult One Daily Multivitamin 1 caplet PO DAILY aspirin [Adult Low Dose Aspirin] 81 mg Tablet,Delayed Release (Dr/Ec) 81 mg PO DAILY calcium carbonate-vitamin D3 [Calcium 600 + D(3)] 600 mg calcium- 200 unit Capsule 1 cap PO DAILY coenzyme Q10 10 mg Capsule 10 mg PO ONCE metoprolol tartrate 50 mg tablet See Rx Instructions .ROUTE .COMPLEX Qty: 360 0RF Dose Instruction: TAKE 2 TABLETS BY MOUTH EVERY 12 HOURS Rx Instructions: TAKE 2 TABLETS BY MOUTH EVERY 12 HOURS atorvastatin 40 mg tablet See Rx Instructions .ROUTE .COMPLEX Qty: 90 3RF Dose Instruction: TAKE 1 TABLET BY MOUTH EVERY DAY Rx Instructions: TAKE 1 TABLET BY MOUTH EVERY DAY losartan-hydrochlorothiazide 100-25 mg tablet See Rx Instructions .ROUTE .COMPLEX Qty: 90 2RF Dose Instruction: TAKE 1 TABLET BY MOUTH EVERY DAY Rx Instructions: TAKE 1 TABLET BY MOUTH EVERY DAY citalopram 40 mg tablet 40 mg PO DAILY Qty: 90 1RF levothyroxine 75 mcg tablet See Rx Instructions .ROUTE .COMPLEX Qty: 90 1RF Dose Instruction: TAKE 1 TABLET BY MOUTH DAILY Rx Instructions: TAKE 1 TABLET BY MOUTH DAILY Follow-up/Referrals: Yovanny Latham MD [Primary Care Provider, Family Practice] Time of Disposition: 13:10 Quality NIHSS Nursing Documentation ED NIHSS nursing documentation: reviewed/agree
== END 2025-11-18 13:15 | disposition home or self-care (01) ==
PROVIDERS: Emergency Provider Nurse Practitioner Family; PCP Family Medicine
DX: R53.1 Weakness (principal); R39.198 Other difficulties with micturition; I13.0 Hypertensive heart and chronic kidney disease with heart failure and stage 1 through stage 4 chronic kidney disease, or unspecified chronic kidney disease; N18.30 Chronic kidney disease, stage 3 unspecified; I50.32 Chronic diastolic (congestive) heart failure; N32.81 Overactive bladder; E78.2 Mixed hyperlipidemia; E03.9 Hypothyroidism, unspecified; K21.9 Gastro-esophageal reflux disease without esophagitis; F33.9 Major depressive disorder, recurrent, unspecified; M48.061 Spinal stenosis, lumbar region without neurogenic claudication; Z95.2 Presence of prosthetic heart valve; Z79.82 Long term (current) use of aspirin
CPT/HCPCS: 81003; 87086; 99213; G0463